=== PATIENT | male | born 1965 ===

== ENCOUNTER 2016-11-08 02:33 | Emergency (ER) | payer OTHER ==
[2016-11-08 02:33] VITALS: BMI 33.3
[2016-11-08 02:40] VITALS: BP 135/75; PULSE 92; TEMP 98.8
[2016-11-08] MEDS ORDERED: Albuterol-Ipratrop 3 mg / 0.5 (3 ml) UD INH STA ×3 (02:41→05:24)
--- NOTE | 2016-11-08 02:51 | ED PDOC ---
HPI: SOB/CHF/COPD Time Seen by Provider: 11/08/16 02:37 Chief Complaint (Nursing): Respiratory Distress Chief Complaint (Provider): SOB, wheezing History Per: Patient History/Exam Limitations: no limitations Onset/Duration Of Symptoms: Hrs Current Symptoms Are (Timing): Still Present Additional Complaint(s): 50yo male with PMHx including asthma presents to the ED with c/o SOB and wheezing since this morning. Patient states symptoms began because of rain and notes he ran out of his inhaler. No other medical complaints. Past Medical History Reviewed: Historical Data, Nursing Documentation, Vital Signs Vital Signs: Last Vital Signs Temp 98.8 F 11/08/16 02:38 Pulse 92 H 11/08/16 02:38 Resp 16 11/08/16 03:59 BP 135/75 11/08/16 02:38 Pulse Ox 99 11/08/16 06:18 - Medical History PMH: Asthma, COPD, Depression Denies: Diabetes, Hepatitis, HIV, HTN, Chronic Kidney Disease, Seizures, Sexually Transmitted Disease - Surgical History Surgical History: No Surg Hx - Family History Family History: States: Diabetes - Immunization History Hx Tetanus Toxoid Vaccination: No Hx Influenza Vaccination: No Hx Pneumococcal Vaccination: No - Home Medications Home Medications: Ambulatory Orders Medication Instructions Recorded Albuterol 0.083% [Albuterol 0.083% 2.5 mg IH Q4 PRN #10 vial 09/30/16 Inhal Kristal (2.5 mg/3 ml) UD] Albuterol HFA [Ventolin HFA 90 2 puff IH Q4 PRN #1 unit 09/30/16 mcg/actuation (8 g)] Fluticasone/Salmeterol 250/50 1 puff IH Q12 #1 unit 09/30/16 [Advair Diskus] Nebulizer/Compressor [Comp-Air 1 each MC PRN PRN #1 each 09/30/16 Nebulizer System] Prednisone 50 mg PO DAILY #4 tablet 09/30/16 Albuterol HFA [Ventolin HFA 90 2 puff IH [id number] PRN #1 bottle 10/19/16 mcg/actuation (8 g)] Ibuprofen [Motrin] 600 mg PO Q6H PRN #20 tab 10/19/16 Albuterol HFA [Ventolin HFA 90 2 puff IH [id number] #1 inhaler 11/08/16 mcg/actuation (8 g)] predniSONE [predniSONE Tab] 60 mg PO DAILY #9 tab 11/08/16 - Allergies Allergies/Adverse Reactions: Allergies Allergy/AdvReac Type Severity Reaction Status Date / Time FISH Allergy ANAPHYLAXIS Verified 11/08/16 02:38 Fish Containing Products Allergy ANAPHYLAXIS Verified 11/08/16 02:38 Review of Systems ROS Statement: Except As Marked, All Systems Reviewed And Found Negative Respiratory: Positive for: Shortness of Breath, Wheezing Physical Exam - Reviewed Nursing Documentation Reviewed: Yes Vital Signs Reviewed: Yes - Physical Exam Appears: Positive for: Well, No Acute Distress Head Exam: Positive for: ATRAUMATIC, NORMAL INSPECTION, NORMOCEPHALIC Skin: Positive for: Normal Color, Warm, Dry Eye Exam: Positive for: Normal appearance, EOMI, PERRL ENT: Positive for: Normal ENT Inspection Neck: Positive for: Normal, Painless ROM, Supple Cardiovascular/Chest: Positive for: Regular Rate, Rhythm. Negative for: Murmur , Tachycardia Respiratory: Positive for: Wheezing (mild b/l ). Negative for: Respiratory Distress Gastrointestinal/Abdominal: Positive for: Normal Exam, Bowel Sounds, Soft. Negative for: Tenderness Back: Positive for: Normal Inspection Extremity: Positive for: Normal ROM. Negative for: Deformity, Swelling Neurologic/Psych: Positive for: Alert, Oriented - ECG O2 Sat by Pulse Oximetry: 99 Pulse Ox Interpretation: Normal Medical Decision Making Medical Decision Makin: Impression: asthma Plan: duoneb 3ml INH x2 reassess 0618: Patient feels better after treatments and stable for d/c. Scribe Attestation: Documented by Roosevelt Sanders acting as a scribe for Richard Smith MD. Provider Scribe Attestation: All medical record entries made by the Scribe were at my direction and personally dictated by me. I have reviewed the chart and agree that the record accurately reflects my personal performance of the history, physical exam, medical decision making, and the department course for this patient. I have also personally directed, reviewed, and agree with the discharge instructions and disposition. Disposition - Clinical Impression Clinical Impression: Asthma exacerbation - Patient ED Disposition Is Patient to be Admitted: No - Disposition Referrals: [facility] [Outside] Disposition: Routine/Home Disposition Time: 06:18 Condition: IMPROVED Prescriptions: Albuterol HFA [Ventolin HFA 90 mcg/actuation (8 g)] 2 puff IH [id number] #1 inhaler predniSONE [predniSONE Tab] 60 mg PO DAILY #9 tab Instructions: Asthma (ED)
[2016-11-08 04:00] VITALS: RESP 16
[2016-11-08] MEDS ORDERED: Albuterol-Ipratrop 3 mg / 0.5 (3 ml) UD ONE (05:32)
[2016-11-08 06:18] VITALS: O2SAT 99
== END 2016-11-08 06:32 | disposition home or self-care (01) ==
LOC: H.ER 02:33
DX: J45.901 Unspecified asthma with (acute) exacerbation (principal)

== ENCOUNTER 2016-11-19 01:09 | Emergency (ER) | payer OTHER ==
[2016-11-19 01:09] VITALS: BMI 33.3
[2016-11-19 01:31] VITALS: BP 122/58; PULSE 96; RESP 16; TEMP 98; O2SAT 96
--- NOTE | 2016-11-19 04:05 | ED PDOC ---
HPI: Headache Time Seen by Provider: 11/19/16 01:12 Chief Complaint (Nursing): Headache Chief Complaint (Provider): headache History Per: Patient History/Exam Limitations: no limitations Onset/Duration Of Symptoms: Days Current Symptoms Are (Timing): Still Present Additional Complaint(s): 50yo male presents to the ED for evaluation of headache x past few weeks. Patient taking Tylenol with no relief. Headache is non-thunderclap and not the worst of his life. No neck stiffness or fever. Past Medical History Reviewed: Historical Data, Nursing Documentation, Vital Signs Vital Signs: Last Vital Signs Temp 98 F 11/19/16 01:29 Pulse 96 H 11/19/16 01:29 Resp 16 11/19/16 01:29 BP 122/58 L 11/19/16 01:29 Pulse Ox 96 11/19/16 01:29 - Medical History PMH: Asthma, COPD, Depression Denies: Diabetes, Hepatitis, HIV, HTN, Chronic Kidney Disease, Seizures, Sexually Transmitted Disease - Surgical History Surgical History: No Surg Hx - Family History Family History: States: Diabetes - Immunization History Hx Tetanus Toxoid Vaccination: No Hx Influenza Vaccination: No Hx Pneumococcal Vaccination: No - Home Medications Home Medications: Ambulatory Orders Medication Instructions Recorded Albuterol 0.083% [Albuterol 0.083% 2.5 mg IH Q4 PRN #10 vial 09/30/16 Inhal Kristal (2.5 mg/3 ml) UD] Albuterol HFA [Ventolin HFA 90 2 puff IH Q4 PRN #1 unit 09/30/16 mcg/actuation (8 g)] Fluticasone/Salmeterol 250/50 1 puff IH Q12 #1 unit 09/30/16 [Advair Diskus] Nebulizer/Compressor [Comp-Air 1 each MC PRN PRN #1 each 09/30/16 Nebulizer System] Prednisone 50 mg PO DAILY #4 tablet 09/30/16 Albuterol HFA [Ventolin HFA 90 2 puff IH [id number] PRN #1 bottle 10/19/16 mcg/actuation (8 g)] Ibuprofen [Motrin] 600 mg PO Q6H PRN #20 tab 10/19/16 Albuterol HFA [Ventolin HFA 90 2 puff IH [id number] #1 inhaler 11/08/16 mcg/actuation (8 g)] predniSONE [predniSONE Tab] 60 mg PO DAILY #9 tab 11/08/16 Aspirin/Acetaminophen/Caffeine 1 each PO Q8 #30 tablet 11/19/16 [Excedrin Extra Strength Caplet] - Allergies Allergies/Adverse Reactions: Allergies Allergy/AdvReac Type Severity Reaction Status Date / Time FISH Allergy ANAPHYLAXIS Verified 11/19/16 01:29 Fish Containing Products Allergy ANAPHYLAXIS Verified 11/19/16 01:29 Review of Systems ROS Statement: Except As Marked, All Systems Reviewed And Found Negative Constitutional: Negative for: Fever Musculoskeletal: Positive for: Other (no neck stiffness ) Neurological: Positive for: Headache, Other (non-thunderclap headache ) Physical Exam - Reviewed Nursing Documentation Reviewed: Yes Vital Signs Reviewed: Yes - Physical Exam Appears: Positive for: Well, No Acute Distress Head Exam: Positive for: ATRAUMATIC, NORMAL INSPECTION, NORMOCEPHALIC Skin: Positive for: Normal Color, Warm, Dry Eye Exam: Positive for: Normal appearance, EOMI, PERRL ENT: Positive for: Normal ENT Inspection Neck: Positive for: Normal, Painless ROM, Supple Cardiovascular/Chest: Positive for: Regular Rate, Rhythm. Negative for: Murmur , Tachycardia Respiratory: Positive for: Normal Breath Sounds. Negative for: Wheezing, Respiratory Distress Gastrointestinal/Abdominal: Positive for: Normal Exam, Bowel Sounds, Soft. Negative for: Tenderness Back: Positive for: Normal Inspection Extremity: Positive for: Normal ROM. 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 Negative for: Motor/Sensory Deficits, Aphasia, Facial Droop - ECG O2 Sat by Pulse Oximetry: 96 Pulse Ox Interpretation: Normal (RA) Medical Decision Making Medical Decision Makin: Impression: non-pathological headache Plan: Motrin 600mg PO reassess Scribe Attestation: Documented by Roosevelt Sanders acting as a scribe for Richard Smith MD. Provider Scribe Attestation: All medical record entries made by the Scribe were at my direction and personally dictated by me. I have reviewed the chart and agree that the record accurately reflects my personal performance of the history, physical exam, medical decision making, and the department course for this patient. I have also personally directed, reviewed, and agree with the discharge instructions and disposition. Disposition - Clinical Impression Clinical Impression: Headache - Disposition Referrals: Yan Thompson MD [Primary Care Provider] - Disposition Time: 04:00 Condition: STABLE Prescriptions: Aspirin/Acetaminophen/Caffeine [Excedrin Extra Strength Caplet] 1 each PO Q8 # 30 tablet Instructions: Acute Headache (ED)
== END 2016-11-19 05:51 | disposition home or self-care (01) ==
LOC: H.ER 01:09
DX: R51 Headache (principal); J44.9 Chronic obstructive pulmonary disease, unspecified; Z79.82 Long term (current) use of aspirin

== ENCOUNTER 2016-12-07 01:20 | Emergency (ER) | payer OTHER ==
[2016-12-07 01:20] VITALS: BMI 33.3
[2016-12-07 01:28] VITALS: BP 132/88; PULSE 75; RESP 20; TEMP 98; O2SAT 95
[2016-12-07] MEDS ORDERED: Bacitracin 500 Units/gm Oint Foilpak UD TOP STA (02:05)
[2016-12-07] MEDS ORDERED: Albuterol-Ipratrop 3 mg / 0.5 (3 ml) UD INH STA (02:05)
[2016-12-07] MEDS ORDERED: Albuterol-Ipratrop 3 mg / 0.5 (3 ml) UD ONE (02:12)
--- NOTE | 2016-12-07 02:25 | ED PDOC ---
HPI: SOB/CHF/COPD Time Seen by Provider: 12/07/16 01:30 Chief Complaint (Nursing): Respiratory Distress Chief Complaint (Provider): Wheezing History Per: Patient History/Exam Limitations: no limitations Onset/Duration Of Symptoms: Days (2x) Current Symptoms Are (Timing): Still Present Initiating Event: Out Of Medications (lost his albuterol ) Current Respiratory Medications: Albuterol Associated Symptoms: Other (dry cough). denies: Fever, Chest Pain Additional Complaint(s): 50 year old male with a pertinent medical history of asthma presents to the ED with complaints of wheezing that started 2x days ago. He reports that he lost his albuterol machine 2x days ago. He reports associated symptoms of a cough. He denies having a fever and chest pain. Of note: patient has had a 1cm wound on the sole of his right foot (no discharge ) fro 2x weeks. PMD: Patient does not recall Past Medical History Reviewed: Historical Data, Nursing Documentation, Vital Signs Vital Signs: Last Vital Signs Temp 98 F 12/07/16 01:26 Pulse 75 12/07/16 01:26 Resp 20 12/07/16 01:26 BP 132/88 12/07/16 01:26 Pulse Ox 95 12/07/16 02:38 - Medical History PMH: Asthma, COPD, Depression Denies: Diabetes, Hepatitis, HIV, HTN, Chronic Kidney Disease, Seizures, Sexually Transmitted Disease - Surgical History Surgical History: No Surg Hx - Family History Family History: States: Diabetes - Social History Alcohol: Other (yes) - Immunization History Hx Tetanus Toxoid Vaccination: No Hx Influenza Vaccination: No Hx Pneumococcal Vaccination: No - Home Medications Home Medications: Ambulatory Orders Medication Instructions Recorded Albuterol 0.083% [Albuterol 0.083% 2.5 mg IH Q4 PRN #10 vial 09/30/16 Inhal Kristal (2.5 mg/3 ml) UD] Albuterol HFA [Ventolin HFA 90 2 puff IH Q4 PRN #1 unit 09/30/16 mcg/actuation (8 g)] Fluticasone/Salmeterol 250/50 1 puff IH Q12 #1 unit 09/30/16 [Advair Diskus] Nebulizer and Compressor [Comp-Air 1 each MC PRN PRN #1 each 09/30/16 Nebulizer System] Prednisone 50 mg PO DAILY #4 tablet 09/30/16 Albuterol HFA [Ventolin HFA 90 2 puff IH [id number] PRN #1 bottle 10/19/16 mcg/actuation (8 g)] Ibuprofen [Motrin] 600 mg PO Q6H PRN #20 tab 10/19/16 Albuterol HFA [Ventolin HFA 90 2 puff IH [id number] #1 inhaler 11/08/16 mcg/actuation (8 g)] predniSONE [predniSONE Tab] 60 mg PO DAILY #9 tab 11/08/16 Aspirin/Acetaminophen/Caffeine 1 each PO Q8 #30 tablet 11/19/16 [Excedrin Extra Strength Caplet] Albuterol HFA [Ventolin HFA 90 2 puff IH [id number] PRN #1 inh 12/07/16 mcg/actuation (8 g)] Cephalexin [Keflex] 500 mg PO BID #14 capsule 12/07/16 - Allergies Allergies/Adverse Reactions: Allergies Allergy/AdvReac Type Severity Reaction Status Date / Time FISH Allergy ANAPHYLAXIS Verified 11/19/16 01:29 Fish Containing Products Allergy ANAPHYLAXIS Verified 11/19/16 01:29 Review of Systems ROS Statement: Except As Marked, All Systems Reviewed And Found Negative Constitutional: Negative for: Fever Cardiovascular: Negative for: Chest Pain Respiratory: Positive for: Cough, Wheezing Skin: Positive for: Other (wound on the sole of right foot) Physical Exam - Reviewed Nursing Documentation Reviewed: Yes Vital Signs Reviewed: Yes - Physical Exam Appears: Positive for: Well, Non-toxic, No Acute Distress Head Exam: Positive for: ATRAUMATIC, NORMOCEPHALIC Cardiovascular/Chest: Positive for: Regular Rate, Rhythm Respiratory: Positive for: Wheezing (diffuse wheezing bilaterally). Negative for: Decreased Breath Sounds, Respiratory Distress Gastrointestinal/Abdominal: Positive for: Normal Exam, Soft. Negative for: Tenderness Extremity: Positive for: Other (right foot: 1cm wound on sole. No redness, no discharge.) Neurologic/Psych: Positive for: Alert, Oriented (3x) - ECG O2 Sat by Pulse Oximetry: 95 (RA) Pulse Ox Interpretation: Normal Nebulizer Treatments/Peak Flow - Duonebs Number of Bronchodilator Doses given?: 1 - Pre/Post Peak Flow Pre Treatment Peak Flow: 1 Post treatment Peak Flow: 1 - Steroid Treatment Steroid: Oral (solumedrol) - Clinical Response Clinical Response: Improved Medical Decision Making Medical Decision Makin:30 Initial impression: 50 year old male with wheezing. Differential diagnoses include but are not limited to asthma exacerbation or food wound infection. Initial plan: * EKG * Bacitracin 1ea TOP * duoneb 3ml INH * peak flow pre post treatment * solumedrol 60mgPO * reevaluation Patient will be discharged with Rx for albuterol, prednisone, and a referral to a podiatry clinic. Patient is instructed to return to the ED if symptoms persist or worsen. Scribe Attestation: Documented by Niharika Taveras, acting as a scribe for Tato Bird MD. Provider Scribe Attestation: All medical record entries made by the Scribe were at my direction and personally dictated by me. I have reviewed the chart and agree that the record accurately reflects my personal performance of the history, physical exam, medical decision making, and the department course for this patient. I have also personally directed, reviewed, and agree with the discharge instructions and disposition. Disposition - Clinical Impression Clinical Impression: Asthma, Asthma exacerbation attacks - Patient ED Disposition Is Patient to be Admitted: No Doctor Will See Patient In The: Office Counseled Patient/Family Regarding: Studies Performed, Diagnosis, Need For Followup - Disposition Referrals: [facility] [Outside] Podiatry Clinic [Outside] Disposition: Routine/Home Disposition Time: 04:05 Condition: GOOD Additional Instructions: Follow up with your PCP in 2-3 days. Prescriptions: Albuterol HFA [Ventolin HFA 90 mcg/actuation (8 g)] 2 puff IH [id number] PRN #1 inh PRN Reason: Wheezing Cephalexin [Keflex] 500 mg PO BID #14 capsule Instructions: Asthma (ED), Pressure Ulcer (ED)
--- NOTE | 2016-12-07 10:20 | CARD ---
APPROVED REPORT EKG Measurement Heart [id number] <Conclusion> Normal sinus rhythm Cannot rule out Anterior infarct, age undetermined (Check placement of V2 and V3 leads) Abnormal ECG
== END 2016-12-07 04:49 | disposition home or self-care (01) ==
LOC: H.ER 01:20
DX: J45.901 Unspecified asthma with (acute) exacerbation (principal); J44.9 Chronic obstructive pulmonary disease, unspecified; Z79.82 Long term (current) use of aspirin; F32.9 Major depressive disorder, single episode, unspecified

== ENCOUNTER 2016-12-16 04:43 | Emergency (ER) | payer OTHER ==
[2016-12-16 04:44] VITALS: BMI 33.3
[2016-12-16 05:11] VITALS: BP 116/86; PULSE 87; RESP 16; TEMP 98.6; O2SAT 98
[2016-12-16] MEDS ORDERED: Albuterol-Ipratrop 3 mg / 0.5 (3 ml) UD ONE (06:28)
[2016-12-16] MEDS ORDERED: Albuterol-Ipratrop 3 mg / 0.5 (3 ml) UD INH STA ×2 (06:28→06:30)
--- NOTE | 2016-12-16 06:33 | ED PDOC ---
HPI: SOB/CHF/COPD Time Seen by Provider: 12/16/16 04:50 Chief Complaint (Nursing): Respiratory Distress Chief Complaint (Provider): asthma exacerbation History Per: Patient History/Exam Limitations: no limitations Onset/Duration Of Symptoms: Mins Current Symptoms Are (Timing): Still Present Additional Complaint(s): 50yo male well known to ED and provider for multiple previous visits with PMHx including alcohol abuse, depression, asthma, COPD, gastritis presents to the ED for eval of asthma exacerbation. Patient states he feels tight. Denies any other medical complaints. Past Medical History Reviewed: Historical Data, Nursing Documentation, Vital Signs Vital Signs: Last Vital Signs Temp 98.6 F 12/16/16 05:08 Pulse 87 12/16/16 05:08 Resp 16 12/16/16 05:08 BP 116/86 12/16/16 05:08 Pulse Ox 98 12/16/16 06:44 - Medical History PMH: Asthma, COPD, Depression, Gastritis Denies: Diabetes, Hepatitis, HIV, HTN, Chronic Kidney Disease, Seizures, Sexually Transmitted Disease - Surgical History Surgical History: No Surg Hx - Family History Family History: States: Diabetes - Social History Current smoker - smoking cessation education provided: No Alcohol: Other (hx alcohol abuse) Drugs: Denies - Immunization History Hx Tetanus Toxoid Vaccination: No Hx Influenza Vaccination: No Hx Pneumococcal Vaccination: No - Home Medications Home Medications: Ambulatory Orders Medication Instructions Recorded Albuterol 0.083% [Albuterol 0.083% 2.5 mg IH Q4 PRN #10 vial 09/30/16 Inhal Kristal (2.5 mg/3 ml) UD] Albuterol HFA [Ventolin HFA 90 2 puff IH Q4 PRN #1 unit 09/30/16 mcg/actuation (8 g)] Fluticasone/Salmeterol 250/50 1 puff IH Q12 #1 unit 09/30/16 [Advair Diskus] Nebulizer and Compressor [Comp-Air 1 each MC PRN PRN #1 each 09/30/16 Nebulizer System] Prednisone 50 mg PO DAILY #4 tablet 09/30/16 Albuterol HFA [Ventolin HFA 90 2 puff IH [id number] PRN #1 bottle 10/19/16 mcg/actuation (8 g)] Ibuprofen [Motrin] 600 mg PO Q6H PRN #20 tab 10/19/16 Albuterol HFA [Ventolin HFA 90 2 puff IH [id number] #1 inhaler 11/08/16 mcg/actuation (8 g)] predniSONE [predniSONE Tab] 60 mg PO DAILY #9 tab 11/08/16 Aspirin/Acetaminophen/Caffeine 1 each PO Q8 #30 tablet 11/19/16 [Excedrin Extra Strength Caplet] Albuterol HFA [Ventolin HFA 90 2 puff IH [id number] PRN #1 inh 12/07/16 mcg/actuation (8 g)] Cephalexin [Keflex] 500 mg PO BID #14 capsule 12/07/16 Prednisone 50 mg PO DAILY #3 tablet 12/07/16 Albuterol HFA [Ventolin HFA 90 1 - 2 puff IH Q4H PRN #1 bottle 12/16/16 mcg/actuation (8 g)] - Allergies Allergies/Adverse Reactions: Allergies Allergy/AdvReac Type Severity Reaction Status Date / Time FISH Allergy ANAPHYLAXIS Verified 11/19/16 01:29 Fish Containing Products Allergy ANAPHYLAXIS Verified 11/19/16 01:29 Review of Systems ROS Statement: Except As Marked, All Systems Reviewed And Found Negative Respiratory: Positive for: Other (asthma exacerbation ) Physical Exam - Reviewed Nursing Documentation Reviewed: Yes Vital Signs Reviewed: Yes - Physical Exam Appears: Positive for: Well, No Acute Distress Head Exam: Positive for: ATRAUMATIC, NORMAL INSPECTION, NORMOCEPHALIC Skin: Positive for: Normal Color, Warm, Dry Eye Exam: Positive for: Normal appearance Cardiovascular/Chest: Positive for: Regular Rate, Rhythm. Negative for: Tachycardia Respiratory: Positive for: Wheezing (slight b/l ), Other (good air entry b/l ). Negative for: Respiratory Distress Neurologic/Psych: Positive for: Alert, Oriented - ECG O2 Sat by Pulse Oximetry: 98 Pulse Ox Interpretation: Normal Medical Decision Making Medical Decision Makin: Impression: asthma exacerbation Plan: duoneb 3ml INH x2, prednisone 40mg PO reassess 0655: Patient feels better after treatment in ED and is stable for d/c. Instructed to f/u w/ his PCP in 1-2 days and return to the ED with any worsening or concerning symptoms. Patient understands and agrees with the plan. Scribe Attestation: Documented by Roosevelt Sanders acting as a scribe for Melania Crook MD. Provider Scribe Attestation: All medical record entries made by the Scribe were at my direction and personally dictated by me. I have reviewed the chart and agree that the record accurately reflects my personal performance of the history, physical exam, medical decision making, and the department course for this patient. I have also personally directed, reviewed, and agree with the discharge instructions and disposition. Disposition - Clinical Impression Clinical Impression: Asthma - Patient ED Disposition Is Patient to be Admitted: No Counseled Patient/Family Regarding: Studies Performed, Diagnosis, Need For Followup - Disposition Referrals: [facility] [Outside] [facility] [Outside] Disposition: Routine/Home Disposition Time: 06:40 Condition: IMPROVED Additional Instructions: follow up with your primary doctor in 1-2 days return to the ED with any worsening or concerning symptom.s. Prescriptions: Albuterol HFA [Ventolin HFA 90 mcg/actuation (8 g)] 1 - 2 puff IH Q4H PRN #1 bottle PRN Reason: Wheezing Instructions: Asthma (ED)
== END 2016-12-16 07:05 | disposition home or self-care (01) ==
LOC: H.ER 04:43
DX: J44.9 Chronic obstructive pulmonary disease, unspecified (principal)

== ENCOUNTER 2016-12-29 19:19 | Inpatient (IN) | payer MEDICAID, SELFPAY ==
[2016-12-29 19:19] VITALS: BMI 33.3
--- NOTE | 2016-12-29 20:34 | ED PDOC ---
HPI: Psych/Substance Abuse Time Seen by Provider: 12/29/16 20:32 Chief Complaint (Nursing): Psychiatric Evaluation Chief Complaint (Provider): depression History Per: Patient History/Exam Limitations: no limitations Onset/Duration Of Symptoms: Unknown Associated Symptoms: Depression Additional Complaint(s): Lai Perea is a 50 year old male, with a previous medical history of depression, who presents to the ED with complaints of depression accompanied by suicidal ideation. Patient reports wanting to hurt himself by taking sleeping pills. Patient denies any chest pain, shortness of breath, suicidal ideation or hallucinations. PMD: none provided. Past Medical History Reviewed: Historical Data, Nursing Documentation, Vital Signs Vital Signs: Last Vital Signs Temp 98.2 F 12/29/16 19:49 Pulse 77 12/29/16 19:49 Resp 16 12/29/16 19:49 BP 128/80 12/29/16 19:49 Pulse Ox 97 12/29/16 19:49 - Medical History PMH: Asthma, COPD, Depression, Gastritis Denies: Diabetes, Hepatitis, HIV, HTN, Chronic Kidney Disease, Seizures, Sexually Transmitted Disease - Surgical History Surgical History: No Surg Hx - Family History Family History: States: Diabetes - Immunization History Hx Tetanus Toxoid Vaccination: No Hx Influenza Vaccination: No Hx Pneumococcal Vaccination: No - Home Medications Home Medications: Ambulatory Orders Medication Instructions Recorded Albuterol 0.083% [Albuterol 0.083% 2.5 mg IH Q4 PRN #10 vial 09/30/16 Inhal Kristal (2.5 mg/3 ml) UD] Albuterol HFA [Ventolin HFA 90 2 puff IH Q4 PRN #1 unit 09/30/16 mcg/actuation (8 g)] Fluticasone/Salmeterol 250/50 1 puff IH Q12 #1 unit 09/30/16 [Advair Diskus] Nebulizer and Compressor [Comp-Air 1 each MC PRN PRN #1 each 09/30/16 Nebulizer System] Prednisone 50 mg PO DAILY #4 tablet 09/30/16 Albuterol HFA [Ventolin HFA 90 2 puff IH [id number] PRN #1 bottle 10/19/16 mcg/actuation (8 g)] Ibuprofen [Motrin] 600 mg PO Q6H PRN #20 tab 10/19/16 Albuterol HFA [Ventolin HFA 90 2 puff IH [id number] #1 inhaler 11/08/16 mcg/actuation (8 g)] predniSONE [predniSONE Tab] 60 mg PO DAILY #9 tab 11/08/16 Aspirin/Acetaminophen/Caffeine 1 each PO Q8 #30 tablet 11/19/16 [Excedrin Extra Strength Caplet] Albuterol HFA [Ventolin HFA 90 2 puff IH [id number] PRN #1 inh 12/07/16 mcg/actuation (8 g)] Cephalexin [Keflex] 500 mg PO BID #14 capsule 12/07/16 Prednisone 50 mg PO DAILY #3 tablet 12/07/16 Albuterol HFA [Ventolin HFA 90 1 - 2 puff IH Q4H PRN #1 bottle 12/16/16 mcg/actuation (8 g)] - Allergies Allergies/Adverse Reactions: Allergies Allergy/AdvReac Type Severity Reaction Status Date / Time FISH Allergy ANAPHYLAXIS Verified 11/19/16 01:29 Fish Containing Products Allergy ANAPHYLAXIS Verified 11/19/16 01:29 Review of Systems ROS Statement: Except As Marked, All Systems Reviewed And Found Negative Cardiovascular: Negative for: Chest Pain Respiratory: Negative for: Shortness of Breath Psych: Positive for: Suicidal ideation. Negative for: Other (homicidal ideation or hallucinations ) Physical Exam - Reviewed Nursing Documentation Reviewed: Yes Vital Signs Reviewed: Yes - Physical Exam Appears: Positive for: Well, Non-toxic, No Acute Distress Head Exam: Positive for: ATRAUMATIC, NORMAL INSPECTION, NORMOCEPHALIC Skin: Positive for: Normal Color, Warm, DRY Eye Exam: Positive for: EOMI, Normal appearance, PERRL ENT: Positive for: Normal ENT Inspection Neck: Positive for: Normal, Painless ROM Cardiovascular/Chest: Positive for: Regular Rate, Rhythm Respiratory: Positive for: CNT, Normal Breath Sounds Gastrointestinal/Abdominal: Positive for: Normal Exam, Bowel Sounds, Soft Back: Positive for: Normal Inspection Extremity: Positive for: Normal ROM Neurologic/Psych: Positive for: Alert, Oriented - Laboratory Results Result Diagrams: 12/29/16 20:50 12/29/16 20:50 - ECG O2 Sat by Pulse Oximetry: 97 (RA) Pulse Ox Interpretation: Normal - Progress ED Course And Treament: SEEN BY CRISIS ADMITTED TO [facility] DIAGNOSIS DEPRESSION Medical Decision Making Medical Decision Making: Initial Impression: Crisis evaluation Initial Plan: * alcohol serum * labs * urine drug screen * crisis evaluation * 1:1 observation * urinalysis * reevaluation Scribe Attestation: Documented by Emily Blue, acting as a scribe for Milton Scott PA-C. Provider Scribe Attestation: All medical record entries made by the Scribe were at my direction and personally dictated by me. I have reviewed the chart and agree that the record accurately reflects my personal performance of the history, physical exam, medical decision making, and the department course for this patient. I have also personally directed, reviewed, and agree with the discharge instructions and disposition. Disposition - Clinical Impression Clinical Impression: Depression - Patient ED Disposition Is Patient to be Admitted: No - Disposition Disposition Time: 22:20 Condition: FAIR - Pt Status Changed To: Hospital Disposition Of: Inpatient - Admit Certification Admit to Inpatient:: After my assessment, the patient will require hospitalization for at least two midnights. This is because of the severity of symptoms shown, intensity of services needed, and/or the medical risk in this patient being treated as an outpatient.
[2016-12-29 21:28] LABS: BASO % 0.3 % (0.0-2.0); EOS # 0.2 K/uL (0.0-0.7); EOS % 4.3 % (0.0-4.0); HEMATOCRIT 41.5 % (35.0-51.0); LYMPH # 0.7 K/uL (1.0-4.3); LYMPH % 20.3 % (20.0-40.0); MEAN CELL VOLUME 90.1 fl (80.0-94.0); MEAN CORPUSCULAR HEMOGLOBIN 30.1 pg (27.0-31.0); MEAN CORPUSCULAR HGB CONC 33.5 g/dL (33.0-37.0); MONO # 0.4 K/uL (0.0-0.8); NEUT # 2.4 K/uL (1.8-7.0); NEUT % 65.1 % (50.0-75.0); RED CELL DISTRIBUTION WIDTH 13.5 % (11.5-14.5)
[2016-12-29 21:37] LABS: WHITE BLOOD COUNT 3.6 K/uL (4.8-10.8)
[2016-12-29 21:39] LABS: ALB/GLOB RATIO 1.4 (1.0-2.1); ALCOHOL SERUM < 10 mg/dl (0-10); ALKALINE PHOSPHATASE 78 U/L (38-126); ALT/SGPT 43 U/L (21-72); AST/SGOT 27 U/L (17-59); BILIRUBIN,TOTAL 0.2 mg/dl (0.2-1.3); BLOOD UREA NITROGEN 12 mg/dl (9-20); CALCIUM 9.4 mg/dL (8.4-10.2); CARBON DIOXIDE 31 mmol/L (22-30); CHLORIDE 100 mmol/L (98-107); GFR AFRICAN-AMERICAN > 60; GLUCOSE,RANDOM 189 mg/dL (75-110); POTASSIUM 3.6 MMOL/L (3.6-5.0); SODIUM 140 mmol/l (132-148); TOTAL PROTEIN 6.6 G/DL (6.3-8.2)
[2016-12-29 23:25] LABS: RBC URINE 1 /hpf (0-3); URINE BILIRUBIN NEGATIVE (NEGATIVE); URINE BLOOD NEGATIVE (NEGATIVE); URINE COLOR YELLOW (YELLOW); URINE GLUCOSE (UA) 150 mg/dL (Normal); URINE KETONE NEGATIVE (NEGATIVE); URINE LEUKOCYTE ESTERASE NEG Leu/uL (Negative); URINE PROTEIN NEGATIVE (NEGATIVE); WBC URINE 2 /hpf (0-5)
[2016-12-29 23:51] VITALS: O2SAT 98
[2016-12-30] MEDS ORDERED: DiphenhydrAMINE 50 mg/ml Inj IM PRN (01:21)
[2016-12-30] MEDS ORDERED: Magnesium Hydroxide Susp 30 ml UD PO PRN (01:21)
[2016-12-30] MEDS ORDERED: Alum-Mag Hydrox-Simethicone Susp (30 mL) PO PRN (01:21)
[2016-12-30] MEDS ORDERED: Bismuth Subsalicylate 262 mg/15 ml Sus (240 ml) PO SCH (05:00)
[2016-12-30] MEDS ORDERED: Bismuth Subsalicylate 262 mg/15 ml Sus (240 ml) PO PRN (06:11)
[2016-12-30] MEDS ORDERED: Albuterol HFA 90 mcg/actuation (8 g) IH PRN (06:44)
[2016-12-30 08:05] LABS: T4 5.11 ug/dl (5.5-11.0)
[2016-12-30 08:19] LABS: THYROID STIMULATING HORMONE 1.98 mIU/ML (0.46-4.68)
--- NOTE | 2016-12-30 08:42 | PCM.PSYCH ---
Initial Psychiatric Evaluation - Initial Psychiatric Evaluation Type of Admission: Voluntary Legal Status: Capacity Chief Complaint (in patient's own words): "I'm depressed." Patient's Reaction to Hospitalization: HPI: 50 y/o male, with a history of depression, cocaine and alcohol abuse, that was self-referred to this ED for worsening depression and suicidal ideation. Pt reports that he has been very depressed and has been feeling suicidal for the past few weeks. He reports that he has no reason to live. His ideation has been getting stronger and he has purchased pills to commit suicidal but throw them away. He reports he has done that a couple times. No current psychiatric treatment or medications. He denies alcohol and cocaine use , despite being confronted about having a postive urine toxicology for Cocaine. +Poor sleep. +Poor appetite. Patient able to contract for safety on the unit. Pt is a poor historian and reports inconsistent information than is noted in previous evals. Pt reports not sleeping for 3-4 days at a time. Pt denies HI/A/V hallucinations. Pt feels hopeless/helpless. PPHx: Last known hosptalization was in 04/2016, when he was discharged on Zoloft , Trazodone and Gabapentin. Prior treatment at [facility], [facility], AA, and NA. 1994 by OD. FHx: Substance abuse- Several family members, aunts, uncles, cousins, father PMHx: Asthma SHx: 2 yrs of college. 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 History of alcohol and cocaine abuse, patient denying current use, despite + utox. Denied smoking cigarettes. Patient was born in [place]. He was never and has one grown up son. Currently lives with friend. All: Fish/shellfish Current Medications: Active Medications Generic Name Dose Route Start Last Admin Trade Name Freq PRN Reason Stop Dose Admin Acetaminophen 650 mg 12/30/16 01:21 Tylenol 325mg Tab PO Q4 PRN for pain 4-7 Al Hydrox/Mg Hydrox/Simethicone 30 ml 12/30/16 01:21 Maalox Plus 30 Ml PO Q4 PRN Dyspepsia Albuterol 2 puff 12/30/16 06:44 Ventolin Hfa 90 Mcg/Actuation (8 G) IH Q4H PRN Wheezing Bismuth Subsalicylate 524 mg 12/30/16 06:11 Pepto-Bismol PO Q4 PRN Diarrhea Diphenhydramine HCl 50 mg 12/30/16 01:21 Benadryl IM Q6 PRN Extrapyramidal S/S Unable PO Diphenhydramine HCl 50 mg 12/30/16 01:21 Benadryl PO Q6 PRN Extrapyramidal Symptoms Diphenhydramine HCl 50 mg 12/30/16 01:21 12/30/16 03:03 Benadryl PO 50 mg HS PRN Administration Sleep Haloperidol 5 mg 12/30/16 01:21 Haldol PO Q4 PRN Agitation Haloperidol Lactate 5 mg 12/30/16 01:21 Haldol IM Q4 PRN Agitation, Unable to Take PO Lorazepam 2 mg 12/30/16 01:21 Ativan IM Q4 PRN Anxiety/Agitation,Unable PO Lorazepam 2 mg 12/30/16 01:21 Ativan PO Q4 PRN Anxiety/Agitation Magnesium Hydroxide 30 ml 12/30/16 01:21 Milk Of Magnesia PO HS PRN Constipation Fluticasone/Salmeterol 1 puff 12/30/16 09:00 Advair Diskus 250/50 IH Q12 YONG Past Psychiatric History - Past Psychiatric History Previous Treatment History: Inpatient Pertinent Medical Hx (Current Medical&Sleep Prob, Allergies): Allergies Allergy/AdvReac Type Severity Reaction Status Date / Time FISH Allergy ANAPHYLAXIS Verified 12/30/16 01:11 Fish Containing Products Allergy ANAPHYLAXIS Verified 12/30/16 01:11 shellfish derived Allergy ANAPHYLAXIS Verified 12/30/16 01:11 seafood Allergy ANAPHYLAXIS Uncoded 12/30/16 05:41 Fluticasone/Salmeterol 250/50 [Advair Diskus] 1 puff IH Q12 #1 unit 09/30/16 Albuterol HFA [Ventolin HFA 90 mcg/actuation (8 g)] 1 - 2 puff IH Q4H PRN #1 bottle 12/16/16 Review of Systems - Review of Systems All systems: reviewed and no additional remarkable complaints except - Psychiatric Psychiatric: Abnormal Sleep Pattern, Anhedonia, Anxiety, Change in Appetite, Depression, Irritability, Mood Swings, Suicidal Ideation Mental Status Examination - Personal Presentation Personal Presentation: Looks stated age - Affect Affect: Constricted - Motor Activity Motor Activity: Calm - Reliability in Providing Information Reliability in Providing Information: Other (Poor historian at times, seems evasive and perhaps not truthful at times) - Speech Speech: Organized - Mood Mood: Depressed, Anxious - Formal Thought Process Formal Thought Process: No Impairment - Obsessions/Compulsions Obsessions: No Compulsions: No - Cognitive Functions Orientation: Person, Place, Situation, Time Sensorium: Alert Attention/Concentration: Attentive Judgement: Intact, as evidence by: Insight regarding need for hospitalization Memory: Recent intact, as evidence by: Ability to recall events of the day, Remote intact, as evidenced by: Abilit to recall sig. life events, Remote intact , as evidenced by: Ability to recall historical events - Risk Risk: Suicidal - Strength & Assets Inventory Strength & Assets Inventory: Cooperative DSM 5 DX - DSM 5 DSM 5 Diagnosis: Major Depressive Disorder, r/o substance induced mood disorder; Cocaine Use disorder - Recommended/Plan of Treatment Treatment Recommendations and Plan of Treatment: -Admit to psychiatry -Denies current ETOH use, therefore withdrawal protocol not indicated at this time -Start Zoloft 50 mg PO Daily -Individual and group therapy -Medicine consult -Psychoeducation -Disposition planning -No 1:1 indicated as the patient can contract for safety Projected ELOS: 3-5 days Discharge Plan and Discharge Criteria: Discharge when psychiatrically stable
[2016-12-30] MEDS: Fluticasone-Salmeterol 250-50mcg Diskus IH SCH ×2 (08:52→21:20)
--- NOTE | 2016-12-30 10:59 | RAD ---
HISTORY: ROUTINE COMPARISON: Chest x-ray performed 10/19/16 TECHNIQUE: Chest, one view. FINDINGS: Examination limited by habitus. LUNGS: No focal consolidation. Please note that chest x-ray has limited sensitivity for the detection of pulmonary masses. PLEURA: No significant pleural effusion identified. No definite pneumothorax . CARDIOVASCULAR: Heart size appears within normal limits. OSSEOUS STRUCTURES: No acute osseous abnormality identified. VISUALIZED UPPER ABDOMEN: Unremarkable. OTHER FINDINGS: None. IMPRESSION: No focal consolidation, significant pleural effusion, or definite pneumothorax identified.
--- NOTE | 2016-12-30 15:21 | CP.PCM.CON ---
History of Present Illness - History of Present Illness History of Present Illness: Internal Medicine consult. 50 y/o M admitted to Psychiatric unit after ER evaluation for worsening depression associated to suicidal ideation for few weeks. I was asked to see Pt for medical Hx of Asthma, COPD, Gastritis. 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 Also mentioned that he had multiple admissions to hospital because he didn't have money to buy for his medications. Pt denid: fever, chill, n/v/d, abdominal pain, SOB, cough, CP, LOC, dizziness, headache, sick contact. PMHx: Asthma, COPD, Gastritis, Depression, Anxiety, also Hx of Cocaine and alcohol abuse. CXR showed: No consolidation, pleural effusion or Pneumothorax identified. Review of Systems - Constitutional Constitutional: Other (negative) - EENT Eyes: Other (negative) Ears: Other (negative) Nose/Mouth/Throat: Other (negative) - Cardiovascular Cardiovascular: Other (negative) - Respiratory Respiratory: Other (negative) - Gastrointestinal Gastrointestinal: Other (negative) - Genitourinary Genitourinary: Other (negative) - Musculoskeletal Musculoskeletal: Other (negative) - Integumentary Integumentary: Other (negative) - Neurological Neurological: Other (negative) - Psychiatric Psychiatric: Anxiety, Depression, Suicidal Ideation - Endocrine Endocrine: Other (negative) - Hematologic/Lymphatic Hematologic: Other (negative) Past Patient History - Infectious Disease Hx of Infectious Diseases: None - Past Medical History & Family History Past Medical History?: Yes Pertinent Family History: Hx of DM, Substance abuse - Past Social History Smoking Status: Current Some Days Smoker Alcohol: Other (Hx alcohol abuse) Drugs: Cocaine Home Situation {Lives}: Alone - CARDIAC Hx Cardiac Disorders: No Hx Hypertension: No - PULMONARY Hx Respiratory Disorders: Yes Hx Asthma: Yes Hx Bronchitis: Yes Hx Chronic Obstructive Pulmonary Disease (COPD): Yes - NEUROLOGICAL Hx Neurological Disorder: No Hx Seizures: No - HEENT Hx HEENT Problems: No - RENAL Hx Chronic Kidney Disease: No - ENDOCRINE/METABOLIC Hx Endocrine Disorders: No - HEMATOLOGICAL/ONCOLOGICAL Hx Blood Disorders: No Hx Human Immunodeficiency Virus (HIV): No - INTEGUMENTARY Hx Dermatological Problems: No - MUSCULOSKELETAL/RHEUMATOLOGICAL Hx Musculoskeletal Disorders: No Hx Falls: No - GASTROINTESTINAL Hx Gastrointestinal Disorders: Yes Hx Gastritis: Yes - GENITOURINARY/GYNECOLOGICAL Hx Genitourinary Disorders: No Hx Sexually Transmitted Disorders: No - PSYCHIATRIC Hx Psychophysiologic Disorder: Yes Hx Anxiety: Yes Hx Depression: Yes Hx Substance Use: Yes (cocaine) - SURGICAL HISTORY Hx Surgeries: No - ANESTHESIA Hx Anesthesia: No Meds Allergies/Adverse Reactions: Allergies Allergy/AdvReac Type Severity Reaction Status Date / Time FISH Allergy ANAPHYLAXIS Verified 12/30/16 01:11 Fish Containing Products Allergy ANAPHYLAXIS Verified 12/30/16 01:11 shellfish derived Allergy ANAPHYLAXIS Verified 12/30/16 01:11 seafood Allergy ANAPHYLAXIS Uncoded 12/30/16 05:41 - Medications Medications: Current Medications Acetaminophen (Tylenol 325mg Tab) 650 mg PO Q4 PRN PRN Reason: for pain 4-7 Al Hydrox/Mg Hydrox/Simethicone (Maalox Plus 30 Ml) 30 ml PO Q4 PRN PRN Reason: Dyspepsia Albuterol (Ventolin Hfa 90 Mcg/Actuation (8 G)) 2 puff IH Q4H PRN PRN Reason: Wheezing Bismuth Subsalicylate (Pepto-Bismol) 524 mg PO Q4 PRN PRN Reason: Diarrhea Diphenhydramine HCl (Benadryl) 50 mg IM Q6 PRN PRN Reason: Extrapyramidal S/S Unable PO Diphenhydramine HCl (Benadryl) 50 mg PO Q6 PRN PRN Reason: Extrapyramidal Symptoms Diphenhydramine HCl (Benadryl) 50 mg PO HS PRN PRN Reason: Sleep Last Admin: 12/30/16 03:03 Dose: 50 mg Haloperidol (Haldol) 5 mg PO Q4 PRN PRN Reason: Agitation Haloperidol Lactate (Haldol) 5 mg IM Q4 PRN PRN Reason: Agitation, Unable to Take PO Loratadine (Claritin) 10 mg PO DAILY YONG Lorazepam (Ativan) 2 mg IM Q4 PRN PRN Reason: Anxiety/Agitation,Unable PO Lorazepam (Ativan) 2 mg PO Q4 PRN PRN Reason: Anxiety/Agitation Magnesium Hydroxide (Milk Of Magnesia) 30 ml PO HS PRN PRN Reason: Constipation Fluticasone/Salmeterol (Advair Diskus 250/50) 1 puff IH Q12 YONG Last Admin: 12/30/16 08:52 Dose: 1 puff Sertraline HCl (Zoloft) 50 mg PO DAILY YONG Last Admin: 12/30/16 13:11 Dose: 50 mg Physical Exam - Constitutional Appears: No Acute Distress - Head Exam Head Exam: NORMAL INSPECTION - Eye Exam Eye Exam: PERRL - ENT Exam ENT Exam: Normal Oropharynx - Neck Exam Neck exam: Positive for: Normal Inspection - Respiratory Exam Respiratory Exam: Decreased Breath Sounds - Cardiovascular Exam Cardiovascular Exam: REGULAR RHYTHM - GI/Abdominal Exam GI & Abdominal Exam: Normal Bowel Sounds, Soft - Extremities Exam Extremities exam: Positive for: normal inspection - Back Exam Back exam: NORMAL INSPECTION - Neurological Exam Neurological exam: Alert, Oriented x3 Additional comments: No motor sensory deficit. - Psychiatric Exam Psychiatric exam: Anxious, Depressed - Skin Skin Exam: Warm Results - Vital Signs Recent Vital Signs: Last Vital Signs Temp 97.2 F L 12/30/16 06:00 Pulse 65 12/30/16 06:00 Resp 18 12/30/16 06:00 BP 109/70 12/30/16 06:00 Pulse Ox 98 12/29/16 23:50 reviewed J.PElisabeth - Labs Result Diagrams: 12/29/16 20:50 12/29/16 20:50 Labs: Laboratory Results - last 24 hr 12/30/16 06:00 Thyroxine (T4) 5.11 L TSH 3rd Generation 1.98 reviewed J.PElisabeth - Imaging and Cardiology Chest x-ray Status: Report reviewed by me (Vahe) Assessment & Plan (1) COPD (chronic obstructive pulmonary disease) Status: Chronic Priority: Medium (2) Gastritis Status: Chronic Priority: Medium (3) Cocaine abuse Status: Chronic Priority: High - Assessment and Plan (Free Text) Plan: Continue with Advair, Ventolin, Loratadine and rest of tx. - Date & Time Date: 12/30/16
[2016-12-31 07:00] LABS: CHOLESTEROL 220 mg/dL (0-199)
[2016-12-31] MEDS: Fluticasone-Salmeterol 250-50mcg Diskus IH SCH ×2 (09:01→21:08)
--- NOTE | 2016-12-31 12:23 | PCM.PYCHPN ---
Psychiatric Progress Note - Psychiatric Progress Note Patient seen today, length of contact: Patient evaluated, chart reviewed, case discussed with team, 35 min Patient Chief Complaint: "I'm okay" Problems Identified/Issues Discussed: Patient reports that his mood is starting to improve. No current suicidal ideation/plan/intent. He is currently calm, cooperative, engages appropriately with staff and peers. NO AH/VH/paranoia/delusions/konstantin/HI. Medication Change: No Medical Record Reviewed: Yes Consults ordered or reviewed: Medicine consult Mental Status Examination - Cognitive Function Orientation: Person, Place, Situation, Time Memory: Intact Attention: WNL Concentration: WNL Association: [facility] Fund of Knowledge: [facility] Decription of patient's judgement and insights: Fair I/J - Mood Mood: Depressed - Affect Affect: Constricted - Speech Speech: Appropriate - Formal Thought Process Formal Thought Process: No Impairment Psychotic Thoughts and Behaviors: NO AH/VH/paranoia/delusions - Homicidal Ideation Homicidal Ideation: No Goal/Treatment Plan - Goal/Treatment Plan Need for Continued Stay: Remain at risks for inpatient hospitalization, Severe depression anxiety Progress Toward Problem(s) and Goals/Treatment Plan: 51 yo male w/ h/o MDD, cocaine and alcohol abuse, presented with suicidal ideation in the context of continued cocaine use (utox+, patient denies current usage), now starting to improve clinically. -Continue Zoloft 50 mg PO Daily -Individual and group therapy -Medicine consult -Psychoeducation -Motivational therapy -Disposition planning- Possible discharge Thursday if the patient continues to improve clinically -No 1:1 indicated as the patient can contract for safety Estimated Date of D/C: 01/02/17
--- NOTE | 2017-01-01 08:59 | PCM.PYCHPN ---
Psychiatric Progress Note - Psychiatric Progress Note Patient seen today, length of contact: Patient evaluated, chart reviewed, case discussed with team, 35 min Patient Chief Complaint: "I'm okay" Problems Identified/Issues Discussed: No significant events overnight. Patient reports that his mood is continuing to improve. No current suicidal ideation/plan/intent. He is currently calm, cooperative, engages appropriately with staff and peers. NO AH/VH/paranoia/ delusions/konstantin/HI. Medication Change: No Medical Record Reviewed: Yes Mental Status Examination - Cognitive Function Orientation: Person, Place, Situation, Time Memory: Intact Attention: WNL Concentration: WNL Association: [facility] Fund of Knowledge: [facility] Decription of patient's judgement and insights: Fair I/J - Mood Mood: Depressed - Affect Affect: Constricted - Speech Speech: Appropriate - Formal Thought Process Formal Thought Process: No Impairment Psychotic Thoughts and Behaviors: NO AH/VH/paranoia/delusions - Suicidal Ideation Suicidal Ideation: No - Homicidal Ideation Homicidal Ideation: No Goal/Treatment Plan - Goal/Treatment Plan Need for Continued Stay: Remain at risks for inpatient hospitalization, Severe depression anxiety Progress Toward Problem(s) and Goals/Treatment Plan: 51 yo male w/ h/o MDD, cocaine and alcohol abuse, presented with suicidal ideation in the context of continued cocaine use (utox+, patient denies current usage), now starting to improve clinically. -Continue Zoloft 50 mg PO Daily -Individual and group therapy -Medicine consult -Psychoeducation -Motivational therapy -Disposition planning- Likely discharge Thursday if the patient continues to improve clinically -No 1:1 indicated as the patient can contract for safety Estimated Date of D/C: 01/02/17
[2017-01-01] MEDS: Fluticasone-Salmeterol 250-50mcg Diskus IH SCH ×2 (09:45→21:10)
[2017-01-01 15:54] VITALS: RESP 20; TEMP 97.8
[2017-01-02 06:03] VITALS: BP 134/75; PULSE 60
[2017-01-02] MEDS: Fluticasone-Salmeterol 250-50mcg Diskus IH SCH (08:53)
--- NOTE | 2017-01-02 09:56 | PCM.PYCHDC ---
Mental Status Examination - Mental Status Examination Orientation: Person, Place, Situation, Time Memory: Intact Mood: Neutral Affect: Broad Speech: Appropriate Attention: WNL Concentration: WNL Association: WNL Fund of Knowledge: WNL Formal Thought Process: No Impairment Description of patient's judgement and insight: Fair I/J Psychotic Thoughts and Behaviors: NO AH/VH/paranoia/delusions Suicidal Ideation: No Current Homicidal Ideation?: No Discharge Summary - Discharge Note Reason for Hospitalization: HPI: 50 y/o male, with a history of depression, cocaine and alcohol abuse, that was self-referred to this ED for worsening depression and suicidal ideation. Pt reports that he has been very depressed and has been feeling suicidal for the past few weeks. He reports that he has no reason to live. His ideation has been getting stronger and he has purchased pills to commit suicidal but throw them away. He reports he has done that a couple times. No current psychiatric treatment or medications. He denies alcohol and cocaine use , despite being confronted about having a postive urine toxicology for Cocaine. +Poor sleep. +Poor appetite. Patient able to contract for safety on the unit. Pt is a poor historian and reports inconsistent information than is noted in previous evals. Pt reports not sleeping for 3-4 days at a time. Pt denies HI/A/V hallucinations. Pt feels hopeless/helpless. PPHx: Last known hosptalization was in 04/2016, when he was discharged on Zoloft , Trazodone and Gabapentin. Prior treatment at [facility], [facility], [facility], and [facility]. 1994 SA by OD. FHx: Substance abuse- Several family members, aunts, uncles, cousins, father PMHx: Asthma SHx: 2 yrs of college. 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 History of alcohol and cocaine abuse, patient denying current use, despite + utox. Denied smoking cigarettes. Patient was born in [place]. He was never and has one grown up son. Currently lives with friend. All: Fish/shellfish Consultations:: List each consultation separately and include: 1. Reason for request. 2. Findings. 3. Follow-up Consultations: Medicine consult Summary of Hospital Course include:: 1. Description of specific treatment plan utilized for patients during their course of treatmen. 2. Summarize the time- course for resolution of acute symptoms and/or regressed behaviors. 3. Describe issues identified and worked on during hospitalization. 4. Describe medication utilized. 5. Describe medical problems identified and treated. 6. Reassessment of suicide risk Summary of Hospital Course: Patient admitted to the hospital. He participated in individual and group therapy. Motivational therapy provided. Patient was stabilized on Zoloft 50 mg PO Daily. He reports improvement in mood and does not have any ideation to harm himself. He is psychiatrically stable for discharge. - Final Diagnosis (DSM 5) Condition upon Discharge: FAIR DSM 5: Major Depressive Disorder, Cocaine abuse Disposition: HOME/ ROUTINE Follow-up Treatment Plan: 51 yo male w/ h/o MDD, cocaine and alcohol abuse, presented with suicidal ideation in the context of continued cocaine use (utox+, patient denies current usage), now improved clinically and psychiatrically stable for discharge. -Continue Zoloft 50 mg PO Daily -Individual and group therapy -Psychoeducation -Motivational therapy -Discharge today with outpatient follow-up Prescriptions/Medication Reconciliation: Albuterol HFA [Ventolin HFA 90 mcg/actuation (8 g)] 1 - 2 puff IH Q4H PRN #1 bottle PRN Reason: Wheezing Clotrimazole 1% Cream [Lotrimin 1% CREAM] 1 applic TOP BID #1 Fluticasone/Salmeterol 250/50 [Advair Diskus 250/50] 1 puff IH Q12 #1 unit Loratadine [Claritin] 10 mg PO DAILY #30 tab Sertraline [Zoloft] 50 mg PO DAILY #30 tab - Smoking Cessation Smoking Cessation Medication prescribed: No Reason for not providing: Not indicated - Antipsychotic Medications Pt discharged on 2 or more routine antipsychotic medications: No
--- NOTE | 2017-01-02 19:12 | CARD ---
APPROVED REPORT EKG Measurement Heart [id number] MS [id number] [id number] <Conclusion> Normal sinus rhythm Right axis deviation Abnormal ECG
== END 2017-01-02 13:00 | disposition home or self-care (01) | DRG 426 ==
LOC: H.ER 19:19 → H.ERHOLD 22:21 → H.STEP 12-30 00:19
PROVIDERS: ADMIT Psychiatry & Neurology Psychiatry; ATTEND Psychiatry & Neurology Psychiatry
DX: F32.9 Major depressive disorder, single episode, unspecified (principal); R45.851 Suicidal ideations; J44.9 Chronic obstructive pulmonary disease, unspecified; F14.10 Cocaine abuse, uncomplicated; F19.14 Other psychoactive substance abuse with psychoactive substance-induced mood disorder; K29.70 Gastritis, unspecified, without bleeding; F10.10 Alcohol abuse, uncomplicated; J45.909 Unspecified asthma, uncomplicated

== ENCOUNTER 2017-01-11 05:46 | Emergency (ER) | payer MEDICAID, OTHER ==
[2017-01-11 05:46] VITALS: BMI 33.3
[2017-01-11 06:03] VITALS: TEMP 97.8; O2SAT 99
[2017-01-11] MEDS ORDERED: Albuterol-Ipratrop 3 mg / 0.5 (3 ml) UD INH STA ×3 (06:04→06:58)
[2017-01-11] MEDS ORDERED: Albuterol-Ipratrop 3 mg / 0.5 (3 ml) UD ONE ×2 (06:11)
--- NOTE | 2017-01-11 06:34 | ED PDOC ---
HPI: SOB/CHF/COPD Time Seen by Provider: 01/11/17 05:57 Chief Complaint (Nursing): Respiratory Distress Chief Complaint (Provider): Wheezing History Per: Patient History/Exam Limitations: no limitations Onset/Duration Of Symptoms: Days (1x) Current Symptoms Are (Timing): Still Present Initiating Event: Other (patient continues to smoke 1/2 pack of cigarettes per day, states his pump no longer works) Severity: Moderate Additional Complaint(s): 51 year old male with a pertinent medical history of asthma presents to the ED with complaints of wheezing that he has had for a day. He has had multiple visits to the ED for the same complaint. He reports that his pump does not work and continues to smoke 1/2 a pack of cigarettes per day. He denies having any other complaints. PMD: Yan Thompson MD Past Medical History Reviewed: Historical Data, Nursing Documentation, Vital Signs Vital Signs: Last Vital Signs Temp 97.8 F 01/11/17 05:59 Pulse 70 01/11/17 05:59 Resp 26 H 01/11/17 06:24 BP 130/72 01/11/17 05:59 Pulse Ox 99 01/11/17 06:43 - Medical History PMH: Anxiety, Asthma, Bronchitis, COPD, Depression, Gastritis Denies: Diabetes, Hepatitis, HIV, HTN, Chronic Kidney Disease, Seizures, Sexually Transmitted Disease - Surgical History Surgical History: No Surg Hx - Family History Family History: States: Diabetes - Social History Current smoker - smoking cessation education provided: Yes (1/2 pack per day) Alcohol: None Drugs: Cocaine - Immunization History Hx Tetanus Toxoid Vaccination: No Hx Influenza Vaccination: No Hx Pneumococcal Vaccination: No - Home Medications Home Medications: Ambulatory Orders Medication Instructions Recorded Albuterol HFA [Ventolin HFA 90 1 - 2 puff IH Q4H PRN #1 bottle 01/01/17 mcg/actuation (8 g)] Clotrimazole 1% Cream [Lotrimin 1% 1 applic TOP BID #1 01/01/17 CREAM] Fluticasone/Salmeterol 250/50 1 puff IH Q12 #1 unit 01/01/17 [Advair Diskus 250/50] Loratadine [Claritin] 10 mg PO DAILY #30 tab 01/01/17 Sertraline [Zoloft] 50 mg PO DAILY #30 tab 01/01/17 - Allergies Allergies/Adverse Reactions: Allergies Allergy/AdvReac Type Severity Reaction Status Date / Time FISH Allergy ANAPHYLAXIS Verified 12/30/16 01:11 Fish Containing Products Allergy ANAPHYLAXIS Verified 12/30/16 01:11 shellfish derived Allergy ANAPHYLAXIS Verified 12/30/16 01:11 seafood Allergy ANAPHYLAXIS Uncoded 12/30/16 05:41 Review of Systems ROS Statement: Except As Marked, All Systems Reviewed And Found Negative Respiratory: Positive for: Wheezing Physical Exam - Reviewed Nursing Documentation Reviewed: Yes Vital Signs Reviewed: Yes - Physical Exam Appears: Positive for: Well (smells of cigarette smoke), Non-toxic, No Acute Distress Head Exam: Positive for: ATRAUMATIC, NORMOCEPHALIC Skin: Positive for: Normal Color, Warm, Dry Eye Exam: Positive for: Normal appearance Cardiovascular/Chest: Positive for: Regular Rate, Rhythm Respiratory: Positive for: Wheezing (bilaterally) Neurologic/Psych: Positive for: Alert, Oriented (3x) - ECG O2 Sat by Pulse Oximetry: 99 (RA) Pulse Ox Interpretation: Normal Nebulizer Treatments/Peak Flow - Duonebs Number of Bronchodilator Doses given?: 2 - Pre/Post Peak Flow Pre Treatment Peak Flow: 2 Post treatment Peak Flow: 2 - Steroid Treatment Steroid: Oral - Clinical Response Clinical Response: Improved Medical Decision Making Medical Decision Makin:57 Initial impression: 51 year old male with asthma Initial plan: * duoneb 3ml INH 2x times * solumedrol 60mg PO * peak flow pre post treatment 2x times * reevaluation 7am: pt. still wheezing, will provide one more neb treatment and sign out to dr. anderson pending reassessment. Scribe Attestation: Documented by Niharika Taveras, acting as a scribe for Richard Smith MD. Provider Scribe Attestation: All medical record entries made by the Scribe were at my direction and personally dictated by me. I have reviewed the chart and agree that the record accurately reflects my personal performance of the history, physical exam, medical decision making, and the department course for this patient. I have also personally directed, reviewed, and agree with the discharge instructions and disposition. Disposition - Clinical Impression Clinical Impression: Asthma - Patient ED Disposition Is Patient to be Admitted: Transfer of Care - Disposition Referrals: Yan Thompson MD [Family Provider] - Disposition: Transfer of Care Disposition Time: 07:00 Condition: STABLE Patient Signed Over To: Candelario Anderson Handoff Comments: pending reassessment after neb
--- NOTE | 2017-01-11 08:31 | ED PDOC ---
- ECG O2 Sat by Pulse Oximetry: 99 (RA) Medical Decision Making Medical Decision Makin:00 patient signed out to me by Dr. Smith. Pending meds and re-eval. 8;30 Wheezing is resolved. Upon provider reevaluation patient is feeling better, is medically stable, and requires no further treatment in the ED at this time. Counseling was provided and all questions were answered regarding diagnosis. There is agreement to discharge plan. Return if symptoms persist or worsen. Disposition Counseled Patient/Family Regarding: Studies Performed, Diagnosis - Clinical Impression Clinical Impression: Asthma exacerbation attacks - POA Present On Arrival: None - Disposition Referrals: Yan Thompson MD [Family Provider] - Disposition: Routine/Home Disposition Time: 08:30 Condition: GOOD Prescriptions: Albuterol HFA [Ventolin HFA 90 mcg/actuation (8 g)] 1 puff IH QID PRN #60 inhaler PRN Reason: Wheezing predniSONE [Prednisone] 20 mg PO DAILY 4 Days Instructions: Asthma (ED)
[2017-01-11 08:32] VITALS: BP 131/75; PULSE 90; RESP 20
--- NOTE | 2017-01-13 09:30 | CARD ---
APPROVED REPORT EKG Measurement Heart [id number] <Conclusion> Normal sinus rhythm Normal ECG
== END 2017-01-11 09:13 | disposition home or self-care (01) ==
LOC: H.ER 05:46
DX: J45.901 Unspecified asthma with (acute) exacerbation (principal); F41.9 Anxiety disorder, unspecified; F32.9 Major depressive disorder, single episode, unspecified; F17.210 Nicotine dependence, cigarettes, uncomplicated; J44.9 Chronic obstructive pulmonary disease, unspecified

== ENCOUNTER 2017-02-07 06:14 | Emergency (ER) | payer OTHER ==
[2017-02-07 06:14] VITALS: BMI 33.3
[2017-02-07 06:27] VITALS: BP 152/65; PULSE 75; RESP 18; TEMP 98.2; O2SAT 97
--- NOTE | 2017-02-07 06:44 | ED PDOC ---
HPI: General Adult Time Seen by Provider: 02/07/17 06:39 Chief Complaint (Nursing): Med Refill Chief Complaint (Provider): Med Refill History Per: Patient History/Exam Limitations: no limitations Onset/Duration Of Symptoms: Mins (prior to arrival) Additional Complaint(s): Lai Perea is a 51 year old male with a previous medical history of asthma , who is well known to emergency department, request Albuterol inhaler refill. Reports he is currently using his friend's pump and feels well at the moment but concerned about future asthma attack. Denies any medical complaints. PMD: none provided Past Medical History Reviewed: Historical Data, Nursing Documentation, Vital Signs Vital Signs: Last Vital Signs Temp 98.2 F 02/07/17 06:22 Pulse 75 02/07/17 06:22 Resp 18 02/07/17 06:22 BP 152/65 H 02/07/17 06:22 Pulse Ox 97 02/07/17 06:53 - Medical History PMH: Anxiety, Asthma, Bronchitis, COPD, Depression, Gastritis Denies: HIV, HTN, Chronic Kidney Disease, Seizures, Sexually Transmitted Disease - Family History Family History: States: Diabetes - Social History Current smoker - smoking cessation education provided: Yes Alcohol: None - Immunization History Hx Tetanus Toxoid Vaccination: No Hx Influenza Vaccination: No Hx Pneumococcal Vaccination: No - Home Medications Home Medications: Ambulatory Orders Medication Instructions Recorded Albuterol HFA [Ventolin HFA 90 1 puff IH QID PRN #60 inhaler 01/11/17 mcg/actuation (8 g)] predniSONE [Prednisone] 20 mg PO DAILY 4 Days 01/11/17 Albuterol HFA [Ventolin HFA 90 1 puff INH RQ4 PRN #1 inhaler 01/21/17 mcg/actuation (8 g)] Gabapentin [Neurontin] 300 mg PO TID #90 cap 01/21/17 PARoxetine [Paxil] 20 mg PO QAM #30 tab 01/21/17 metFORMIN [glucOPHAGE] 500 mg PO BIDCC #60 tab 01/21/17 traZODone [Desyrel] 100 mg PO HS #30 tab 01/21/17 Albuterol HFA [Ventolin HFA 90 2 puff IH [id number] #1 puff 02/07/17 mcg/actuation (8 g)] - Allergies Allergies/Adverse Reactions: Allergies Allergy/AdvReac Type Severity Reaction Status Date / Time FISH Allergy ANAPHYLAXIS Verified 12/30/16 01:11 Fish Containing Products Allergy ANAPHYLAXIS Verified 12/30/16 01:11 shellfish derived Allergy ANAPHYLAXIS Verified 12/30/16 01:11 seafood Allergy ANAPHYLAXIS Uncoded 12/30/16 05:41 Review of Systems ROS Statement: Except As Marked, All Systems Reviewed And Found Negative Constitutional: Negative for: Other (medical complaints) Physical Exam - Reviewed Nursing Documentation Reviewed: Yes Vital Signs Reviewed: Yes - Physical Exam Appears: Positive for: Well, Non-toxic, No Acute Distress Head Exam: Positive for: ATRAUMATIC, NORMAL INSPECTION, NORMOCEPHALIC Skin: Positive for: Normal Color, Warm, Dry Eye Exam: Positive for: EOMI, Normal appearance, PERRL ENT: Positive for: Normal ENT Inspection Neck: Positive for: Normal, Painless ROM, Supple Cardiovascular/Chest: Positive for: Regular Rate, Rhythm Respiratory: Positive for: Normal Breath Sounds. Negative for: Crackles, Rales , Rhonchi, Wheezing, Respiratory Distress Gastrointestinal/Abdominal: Positive for: Normal Exam, Bowel Sounds, Soft. Negative for: Tenderness Extremity: Positive for: Normal ROM Neurologic/Psych: Positive for: Alert, Oriented - ECG O2 Sat by Pulse Oximetry: 97 (RA) Pulse Ox Interpretation: Normal Medical Decision Making Medical Decision Making: Initial Impression: Asthma Initial Plan: * Medication refill: Albuterol Upon provider evaluation patient is medically stable, and requires no further treatment in the ED at this time. Patient will be discharged home with Rx for Albuterol inhaler. Counseling was provided and all questions were answered regarding diagnosis and need for follow up with PCP. There is agreement to discharge plan. Return if symptoms persist or worsen. Clinical Impression: Asthma; Medication refill Scribe Attestation: Documented by Essence Woods, acting as a scribe for Richard Smith MD. Provider Scribe Attestation: All medical record entries made by the Scribe were at my direction and personally dictated by me. I have reviewed the chart and agree that the record accurately reflects my personal performance of the history, physical exam, medical decision making, and the department course for this patient. I have also personally directed, reviewed, and agree with the discharge instructions and disposition. Disposition - Clinical Impression Clinical Impression: Asthma - Disposition Referrals: [facility] [Outside] Disposition: Routine/Home Disposition Time: 06:30 Condition: STABLE Prescriptions: Albuterol HFA [Ventolin HFA 90 mcg/actuation (8 g)] 2 puff IH [id number] #1 puff Instructions: Asthma (ED)
== END 2017-02-07 07:03 | disposition home or self-care (01) ==
LOC: H.ER 06:14
DX: Z76.0 Encounter for issue of repeat prescription (principal); J44.9 Chronic obstructive pulmonary disease, unspecified

== ENCOUNTER 2017-02-15 21:49 | Emergency (ER) | payer OTHER ==
[2017-02-15 21:49] VITALS: BMI 33.3
[2017-02-15 22:07] VITALS: BP 137/78; PULSE 84; RESP 16; TEMP 98.6; O2SAT 98
--- NOTE | 2017-02-15 23:03 | ED PDOC ---
ATTENTION PHYSICIANS Hyperglycemia/Hypoglycemia Chief Complaint (Provider): high blood sugar History Per: Patient History/Exam Limitations: no limitations Onset/Duration Of Symptoms: Days (1) Associated Infectious Symptoms: denies: Cough, Dysuria, Urinary Urgency, Urinary Frequency, Nausea, Vomiting, Diarrhea : The patient does not have any of the infectious symptoms listed except for those marked. Treatment Prior To Provider Evaluation: None Additional Complaint(s): 51 yo M with PMHx of cocaine abuse and asthma presents to ED for refill of his test strips to check his BS. Patient states he had BS of 400 this AM, after large cake the night before. However patient has been compliant with medication (metformin) and his accucheck in triage is 226. Patient states some lightheadness/headache in AM, which have now resolved. Patient states no complaints, though needs Rx to get test strips. Patient states he has enough medication x 2 weeks. Patient has not been compliant with follow up for DM at PCP. Patient denies polyuria, polydipsia, poluphagia, cough, abdominal pain, nausea, vomiting, substance use, fever, or chills. PMD: Dr. Nasir Thompson <Chris Shipman - Last Filed: 02/15/17 23:45> <Suzan Gaines - Last Filed: 02/18/17 14:35> Time Seen by Provider: 02/15/17 22:28 Chief Complaint (Nursing): Headache Supervising Attending Note - Supervising Attending Note The Documented history was done by the: Physician Lead Javascript Developer, Attending Physician The documented physical exam was done by the: Physician Lead Javascript Developer, Attending Physician - Attestation: I have personally seen and examined this patient.: Yes I have fully participated in the care of the patient.: Yes I have reviewed all pertinent clinical information, including history, physical exam and plan: Yes <Suzan Gaines - Last Filed: 02/18/17 14:35> Past Medical History Reviewed: Historical Data, Nursing Documentation, Vital Signs Vital Signs: Last Vital Signs Temp 98.6 F 02/15/17 22:00 Pulse 84 02/15/17 22:00 Resp 16 02/15/17 22:00 BP 137/78 02/15/17 22:00 Pulse Ox 98 02/15/17 22:00 - Medical History PMH: Anxiety, Asthma, Bronchitis, COPD, Depression, Gastritis Denies: HIV, HTN, Chronic Kidney Disease, Seizures, Sexually Transmitted Disease - Family History Family History: States: Diabetes - Immunization History Hx Tetanus Toxoid Vaccination: No Hx Influenza Vaccination: No Hx Pneumococcal Vaccination: No <ShipmanChris - Last Filed: 02/15/17 23:45> Vital Signs: Last Vital Signs Temp 98.6 F 02/15/17 22:00 Pulse 84 02/15/17 22:00 Resp 16 02/15/17 22:00 BP 137/78 02/15/17 22:00 Pulse Ox 98 02/15/17 23:53 <Suzan Gaines - Last Filed: 02/18/17 14:35> - Home Medications Home Medications: Ambulatory Orders Medication Instructions Recorded Albuterol HFA [Ventolin HFA 90 1 puff IH QID PRN #60 inhaler 01/11/17 mcg/actuation (8 g)] predniSONE [Prednisone] 20 mg PO DAILY 4 Days 01/11/17 Albuterol HFA [Ventolin HFA 90 1 puff INH RQ4 PRN #1 inhaler 01/21/17 mcg/actuation (8 g)] Gabapentin [Neurontin] 300 mg PO TID #90 cap 01/21/17 PARoxetine [Paxil] 20 mg PO QAM #30 tab 01/21/17 metFORMIN [glucOPHAGE] 500 mg PO BIDCC #60 tab 01/21/17 traZODone [Desyrel] 100 mg PO HS #30 tab 01/21/17 Albuterol HFA [Ventolin HFA 90 2 puff IH [id number] #1 puff 02/07/17 mcg/actuation (8 g)] Blood Sugar Diagnostic [True 1 each SC BID #50 strip 02/15/17 Metrix Glucose Test Strip] - Allergies Allergies/Adverse Reactions: Allergies Allergy/AdvReac Type Severity Reaction Status Date / Time FISH Allergy ANAPHYLAXIS Verified 12/30/16 01:11 Fish Containing Products Allergy ANAPHYLAXIS Verified 12/30/16 01:11 shellfish derived Allergy ANAPHYLAXIS Verified 12/30/16 01:11 seafood Allergy ANAPHYLAXIS Uncoded 12/30/16 05:41 Review of Systems ROS Statement: Except As Marked, All Systems Reviewed And Found Negative Constitutional: Negative for: Fever, Chills Cardiovascular: Negative for: Chest Pain Respiratory: Negative for: Shortness of Breath Gastrointestinal: Negative for: Nausea, Vomiting, Abdominal Pain, Diarrhea, Constipation Genitourinary Male: Negative for: Dysuria, Frequency, Incontinence, Hematuria Neurological: Negative for: Weakness, Numbness, Headache, Dizziness <Chris Shipman - Last Filed: 02/15/17 23:45> Physical Exam - Reviewed Nursing Documentation Reviewed: Yes Vital Signs Reviewed: Yes - Physical Exam Appears: Positive for: Well, Non-toxic, No Acute Distress Head Exam: Positive for: ATRAUMATIC, NORMAL INSPECTION, NORMOCEPHALIC Skin: Positive for: Normal Color, Warm, Dry Eye Exam: Positive for: EOMI, Normal appearance, PERRL ENT: Positive for: Normal ENT Inspection Neck: Positive for: Normal, Painless ROM, Supple Cardiovascular/Chest: Positive for: Regular Rate, Rhythm Respiratory: Positive for: CNT, Normal Breath Sounds Gastrointestinal/Abdominal: Positive for: Normal Exam, Bowel Sounds, Soft, Other (obese). Negative for: Tenderness Back: Positive for: Normal Inspection. Negative for: L CVA Tenderness, R CVA Tenderness Extremity: Positive for: Normal ROM. Negative for: Tenderness, Pedal Edema Neurologic/Psych: Positive for: Alert, Oriented <Chris Shipman - Last Filed: 02/15/17 23:45> - Laboratory Results Urine dip results: Positive for: Glucose (100). Negative for: Leukocyte Esterase, Blood, Nitrate, Ketones - ECG O2 Sat by Pulse Oximetry: 98 Pulse Ox Interpretation: Normal - Progress ED Course And Treament: Time: 2315 Impression: 51 yo M with PMHx of cocaine abuse, asthma, DM presents for test strip refill, found to have BS 226. history of hyperglycemia including 400 this AM. Asymptomatic. Hemodynamically stable. No complaints at this time Plan: -Urine dip (if negative for ketones, will discharge home with refills and ensure close follow up) -1 Liter of water PO Re-evaluation Time: 23:40 (no ketonuria, mild glucosuria) <Chris Shipman - Last Filed: 02/15/17 23:45> Disposition - Patient ED Disposition Is Patient to be Admitted: No Counseled Patient/Family Regarding: Studies Performed, Diagnosis, Need For Followup, Rx Given - Disposition Disposition: Routine/Home Disposition Time: 23:45 <Chris Shipman - Last Filed: 02/15/17 23:45> <Suzan Gaines - Last Filed: 02/18/17 14:35> - Clinical Impression Clinical Impression: Hyperglycemia - Disposition Condition: STABLE Additional Instructions: Follow up with Dr. Thompson or another primary care provider as soon as possible (2-3 days). Return to ED for new or worsening symptoms. Prescriptions: Blood Sugar Diagnostic [True Metrix Glucose Test Strip] 1 each SC BID #50 strip Instructions: Diabetes Mellitus Type 2 in Adults (ED), Diabetic Hyperglycemia ( ED) Forms: [email or web address] [facility] (Estonian) Print Language: SAMI
== END 2017-02-15 23:47 | disposition home or self-care (01) ==
LOC: H.ER 21:49
DX: E11.65 Type 2 diabetes mellitus with hyperglycemia (principal); Z86.59 Personal history of other mental and behavioral disorders; F14.10 Cocaine abuse, uncomplicated; J44.9 Chronic obstructive pulmonary disease, unspecified

== ENCOUNTER 2017-02-20 06:40 | Emergency (ER) | payer OTHER, SELFPAY ==
[2017-02-20 06:40] VITALS: BMI 33.3
[2017-02-20] MEDS ORDERED: Sodium Chloride 0.9% 1,000 ML IV STA (07:14)
[2017-02-20] MEDS ORDERED: Albuterol-Ipratrop 3 mg / 0.5 (3 ml) UD INH STA ×2 (07:29→10:09)
[2017-02-20] MEDS ORDERED: Albuterol-Ipratrop 3 mg / 0.5 (3 ml) UD ONE ×2 (07:35→12:52)
--- NOTE | 2017-02-20 07:39 | ED PDOC ---
HPI: Headache Time Seen by Provider: 02/20/17 07:05 Chief Complaint (Nursing): Headache Chief Complaint (Provider): headache History Per: Patient History/Exam Limitations: no limitations Onset/Duration Of Symptoms: Days (x 4-5) Additional Complaint(s): Lai Perea is a 51 year old male, with a previous medical history of diabetes, asthma and substance abuse, who presents to the ED with complaints of a headache ongoing for 4-5 days associated with a glucose level of 400. Patient denies any visual changes, fevers, chills, syncope, weakness or numbness. As per previous charts, patient was admitted for psych evaluations and had several ED visits for asthma and substance abuse. PMD: none provided Past Medical History Reviewed: Historical Data, Nursing Documentation, Vital Signs Vital Signs: Last Vital Signs Temp 98.2 F 02/20/17 06:48 Pulse 96 H 02/20/17 06:48 Resp 17 02/20/17 06:48 BP 135/77 02/20/17 06:48 Pulse Ox 97 02/20/17 06:48 - Medical History PMH: Anxiety, Asthma, Bronchitis, COPD, Depression, Diabetes, Gastritis Denies: HIV, HTN, Chronic Kidney Disease, Seizures, Sexually Transmitted Disease - Family History Family History: States: Diabetes - Social History Current smoker - smoking cessation education provided: Yes - Immunization History Hx Tetanus Toxoid Vaccination: No Hx Influenza Vaccination: No Hx Pneumococcal Vaccination: No - Home Medications Home Medications: Ambulatory Orders Medication Instructions Recorded Albuterol HFA [Ventolin HFA 90 1 puff IH QID PRN #60 inhaler 01/11/17 mcg/actuation (8 g)] predniSONE [Prednisone] 20 mg PO DAILY 4 Days 01/11/17 Albuterol HFA [Ventolin HFA 90 1 puff INH RQ4 PRN #1 inhaler 01/21/17 mcg/actuation (8 g)] Gabapentin [Neurontin] 300 mg PO TID #90 cap 01/21/17 PARoxetine [Paxil] 20 mg PO QAM #30 tab 01/21/17 metFORMIN [glucOPHAGE] 500 mg PO BIDCC #60 tab 01/21/17 traZODone [Desyrel] 100 mg PO HS #30 tab 01/21/17 Albuterol HFA [Ventolin HFA 90 2 puff IH [id number] #1 puff 02/07/17 mcg/actuation (8 g)] Blood Sugar Diagnostic [True 1 each SC BID #50 strip 02/15/17 Metrix Glucose Test Strip] - Allergies Allergies/Adverse Reactions: Allergies Allergy/AdvReac Type Severity Reaction Status Date / Time FISH Allergy ANAPHYLAXIS Verified 12/30/16 01:11 Fish Containing Products Allergy ANAPHYLAXIS Verified 12/30/16 01:11 shellfish derived Allergy ANAPHYLAXIS Verified 12/30/16 01:11 seafood Allergy ANAPHYLAXIS Uncoded 12/30/16 05:41 Review of Systems ROS Statement: Except As Marked, All Systems Reviewed And Found Negative Constitutional: Negative for: Fever, Chills Eyes: Negative for: Vision Change Neurological: Positive for: Headache. Negative for: Weakness, Numbness Physical Exam - Reviewed Nursing Documentation Reviewed: Yes Vital Signs Reviewed: Yes - Physical Exam Appears: Positive for: Well, Non-toxic, No Acute Distress Head Exam: Positive for: ATRAUMATIC, NORMAL INSPECTION, NORMOCEPHALIC Skin: Positive for: Normal Color, Warm, Diaphoresis (mildly ) Eye Exam: Positive for: EOMI, Normal appearance, PERRL ENT: Positive for: Normal ENT Inspection Neck: Positive for: Normal, Painless ROM, Supple Cardiovascular/Chest: Positive for: Regular Rate, Rhythm Respiratory: Positive for: Wheezing (bilateral). Negative for: Accessory Muscle Use, Respiratory Distress Gastrointestinal/Abdominal: Positive for: Normal Exam, Bowel Sounds, Soft. Negative for: Tenderness Back: Positive for: Normal Inspection Extremity: Positive for: Normal ROM Neurologic/Psych: Positive for: Alert, Oriented. Negative for: Motor/Sensory Deficits - Laboratory Results Result Diagrams: 02/20/17 07:53 02/20/17 07:53 - ECG O2 Sat by Pulse Oximetry: 97 (RA) Pulse Ox Interpretation: Normal Medical Decision Making Medical Decision Making: Initial Impression: Headache Initial Plan: * CT head w/o contrast * EKG * urine drug screen * labs * Troponin I * duo-neb * IV NS 1,000 ml at 1,000 ml/hr * toradol 30 mg IV * tylenol 650 mg PO * reevaluation 08:51 CT head FINDINGS: HEMORRHAGE: No acute parenchymal, subarachnoid or extra-axial hemorrhage. BRAIN: No evidence of large acute infarct. No obvious parenchymal nor extra-axial mass or collection seen on this noncontrast study. VENTRICLES: No evidence of obstructive hydrocephalus CALVARIUM: Calvarium is intact. PARANASAL SINUSES: Unremarkable as visualized. No significant inflammatory changes. MASTOID AIR CELLS: Unremarkable as visualized. No inflammatory changes. OTHER FINDINGS: None. IMPRESSION: No acute intracranial hemorrhage. -------- pt slept in ED for several hours. On re-eval improved, CT brain and bloodwork reviewed w patient. Educated on cocaine avoidance and risks of continuing cocaine abuse. Scribe Attestation: Documented by Emily Blue, acting as a scribe for Ricky Tang D.O. Provider Scribe Attestation: All medical record entries made by the Scribe were at my direction and personally dictated by me. I have reviewed the chart and agree that the record accurately reflects my personal performance of the history, physical exam, medical decision making, and the department course for this patient. I have also personally directed, reviewed, and agree with the discharge instructions and disposition. Disposition - Clinical Impression Clinical Impression: Acute headache, Cocaine abuse - Patient ED Disposition Is Patient to be Admitted: No Counseled Patient/Family Regarding: Studies Performed, Diagnosis, Need For Followup - Disposition Referrals: [facility] [Outside] Disposition: Routine/Home Disposition Time: 14:00 Condition: STABLE Additional Instructions: Avoid cocaine. Return to ER for any worse or new symptoms. Instructions: Cocaine Abuse (ED), Acute Headache (ED)
[2017-02-20 08:03] LABS: BASO % 0.8 % (0.0-2.0); EOS # 0.2 K/uL (0.0-0.7); EOS % 3.5 % (0.0-4.0); HEMOGLOBIN 15.1 g/dL (12.0-18.0); LYMPH # 1.2 K/uL (1.0-4.3); LYMPH % 23.8 % (20.0-40.0); MEAN CELL VOLUME 89.3 fl (80.0-94.0); MEAN CORPUSCULAR HEMOGLOBIN 30.4 pg (27.0-31.0); MEAN PLATELET VOLUME 8.4 fl (7.2-11.7); MONO # 0.5 K/uL (0.0-0.8); MONO % 10.3 % (0.0-10.0); NEUT # 3.1 K/uL (1.8-7.0); NEUT % 61.6 % (50.0-75.0); NRBC % 0.2 % (0.0-0.0); RBC 4.97 Mil/uL (4.40-5.90); RED CELL DISTRIBUTION WIDTH 13.6 % (11.5-14.5)
[2017-02-20 08:16] LABS: ALB/GLOB RATIO 1.3 (1.0-2.1); ALBUMIN 4.3 g/dL (3.5-5.0); ALT/SGPT 56 U/L (21-72); AST/SGOT 38 U/L (17-59); BLOOD UREA NITROGEN 15 mg/dl (9-20); CALCIUM 9.6 mg/dL (8.4-10.2); GFR AFRICAN-AMERICAN > 60; GFR NON-AFRICAN AMERICAN > 60
--- NOTE | 2017-02-20 09:08 | CT ---
PROCEDURE: CT HEAD WITHOUT CONTRAST. HISTORY: r/o ICH COMPARISON: None available. TECHNIQUE: Axial computed tomography images were obtained through the head/brain without intravenous contrast. Radiation dose: Total exam DLP = 1566.66 MGy-cm. This CT exam was performed using one or more of the following dose reduction techniques: Automated exposure control, adjustment of the mA and/or kV according to patient size, and/or use of iterative reconstruction technique. FINDINGS: HEMORRHAGE: No acute parenchymal, subarachnoid or extra-axial hemorrhage. BRAIN: No evidence of large acute infarct. No obvious parenchymal nor extra-axial mass or collection seen on this noncontrast study. VENTRICLES: No evidence of obstructive hydrocephalus CALVARIUM: Calvarium is intact. PARANASAL SINUSES: Unremarkable as visualized. No significant inflammatory changes. MASTOID AIR CELLS: Unremarkable as visualized. No inflammatory changes. OTHER FINDINGS: None. IMPRESSION: No acute intracranial hemorrhage.
--- NOTE | 2017-02-20 10:02 | CARD ---
APPROVED REPORT EKG Measurement Heart [id number] [place] [id number] [id number] <Conclusion> Normal sinus rhythm Normal ECG
[2017-02-20 11:32] VITALS: TEMP 97.6
[2017-02-20 14:00] LABS: BARBITURATES, UR NEGATIVE (NEGATIVE); BENZODIAZEPINES, UR NEGATIVE (NEGATIVE); OPIATES, UR NEGATIVE (NEGATIVE); PHENCYCLIDINE, UR NEGATIVE (NEGATIVE)
[2017-02-20 15:56] VITALS: BP 118/73; PULSE 64; RESP 18; O2SAT 97
== END 2017-02-20 16:42 | disposition home or self-care (01) ==
LOC: H.ER 06:40
DX: R51 Headache (principal); R06.2 Wheezing; J45.909 Unspecified asthma, uncomplicated; E11.9 Type 2 diabetes mellitus without complications; F19.10 Other psychoactive substance abuse, uncomplicated

== ENCOUNTER 2017-02-26 08:04 | Observation (INO) | payer OTHER, SELFPAY ==
[2017-02-26 08:05] VITALS: BMI 33.3
[2017-02-26] MEDS ORDERED: Albuterol-Ipratrop 3 mg / 0.5 (3 ml) UD INH STA ×2 (08:23→08:38)
[2017-02-26 08:26] VITALS: O2SAT 96
--- NOTE | 2017-02-26 08:26 | ED PDOC ---
HPI: Asthma Time Seen by Provider: 02/26/17 08:18 Chief Complaint (Nursing): Cough, Cold, Congestion Chief Complaint (Provider): asthma History Per: Patient History/Exam Limitations: no limitations Onset/Duration Of Symptoms: Days (x 3) Additional Complaint(s): Lai Perea is a 51 year old male, with a previous medical history of asthma, well known to this ED, who presents to the ED with complaints of worsening asthma associated with a non productive cough ongoing for 3 days. He reports that he ran out of his inhaler 1 week ago and has been trying to "tough it out." He reports that the hot weather has triggered his asthma. Patient denies any chest pain, vomiting, fever or chills. He reports no history of prior intubations. PMD: [facility] Past Medical History Reviewed: Historical Data, Nursing Documentation, Vital Signs Vital Signs: Last Vital Signs Temp 97.8 F 02/26/17 08:12 Pulse 82 02/26/17 08:12 Resp 20 02/26/17 08:12 BP 129/71 02/26/17 08:12 Pulse Ox 96 02/26/17 08:12 - Medical History PMH: Anxiety, Asthma, Bronchitis, COPD, Depression, Diabetes, Gastritis Denies: HIV, HTN, Chronic Kidney Disease, Seizures, Sexually Transmitted Disease - Family History Family History: States: Diabetes - Immunization History Hx Tetanus Toxoid Vaccination: No Hx Influenza Vaccination: No Hx Pneumococcal Vaccination: No - Home Medications Home Medications: Ambulatory Orders Medication Instructions Recorded Albuterol HFA [Ventolin HFA 90 1 puff IH QID PRN #60 inhaler 01/11/17 mcg/actuation (8 g)] predniSONE [Prednisone] 20 mg PO DAILY 4 Days 01/11/17 Albuterol HFA [Ventolin HFA 90 1 puff INH RQ4 PRN #1 inhaler 01/21/17 mcg/actuation (8 g)] Gabapentin [Neurontin] 300 mg PO TID #90 cap 01/21/17 PARoxetine [Paxil] 20 mg PO QAM #30 tab 01/21/17 metFORMIN [glucOPHAGE] 500 mg PO BIDCC #60 tab 01/21/17 traZODone [Desyrel] 100 mg PO HS #30 tab 01/21/17 Albuterol HFA [Ventolin HFA 90 2 puff IH [id number] #1 puff 02/07/17 mcg/actuation (8 g)] Blood Sugar Diagnostic [True 1 each SC BID #50 strip 02/15/17 Metrix Glucose Test Strip] Albuterol HFA [Ventolin HFA 90 2 puff IH Q6 #1 inhaler 02/26/17 mcg/actuation (8 g)] Prednisone 50 mg PO DAILY #3 tablet 02/26/17 - Allergies Allergies/Adverse Reactions: Allergies Allergy/AdvReac Type Severity Reaction Status Date / Time FISH Allergy ANAPHYLAXIS Verified 02/26/17 08:23 Fish Containing Products Allergy ANAPHYLAXIS Verified 02/26/17 08:23 shellfish derived Allergy ANAPHYLAXIS Verified 02/26/17 08:23 seafood Allergy ANAPHYLAXIS Uncoded 02/26/17 08:23 Review of Systems ROS Statement: Except As Marked, All Systems Reviewed And Found Negative Constitutional: Negative for: Fever, Chills Cardiovascular: Negative for: Chest Pain Respiratory: Positive for: Cough, Shortness of Breath, Wheezing. Negative for: Sputum Gastrointestinal: Negative for: Nausea, Vomiting, Abdominal Pain, Diarrhea, Constipation Genitourinary Male: Negative for: Dysuria Skin: Negative for: Rash Neurological: Negative for: Weakness, Numbness, Headache Physical Exam - Reviewed Nursing Documentation Reviewed: Yes Vital Signs Reviewed: Yes - Physical Exam Appears: Positive for: Well, Non-toxic, No Acute Distress (speaking in complete sentences. no tachypnea) Head Exam: Positive for: ATRAUMATIC, NORMAL INSPECTION, NORMOCEPHALIC Skin: Positive for: Normal Color, Warm, Dry Eye Exam: Positive for: EOMI, Normal appearance, PERRL Neck: Positive for: Normal, Supple Cardiovascular/Chest: Positive for: Regular Rate, Rhythm Respiratory: Positive for: Decreased Breath Sounds, Wheezing Gastrointestinal/Abdominal: Positive for: Soft. Negative for: Tenderness, Mass , Distended Back: Positive for: Normal Inspection Extremity: Positive for: Normal ROM Neurologic/Psych: Positive for: Alert, Oriented - ECG O2 Sat by Pulse Oximetry: 96 (RA) Pulse Ox Interpretation: Normal Medical Decision Making Medical Decision Making: Symptoms consistent with asthma exacerbation. R/o pna Initial Plan: * CXR * duoneb * solu-medrol * peak flow pre/post treatment * reevaluation Scribe Attestation: Documented by Emily Blue, acting as a scribe for Chaparrita Kirkland MD. Provider Scribe Attestation: All medical record entries made by the Scribe were at my direction and personally dictated by me. I have reviewed the chart and agree that the record accurately reflects my personal performance of the history, physical exam, medical decision making, and the department course for this patient. I have also personally directed, reviewed, and agree with the discharge instructions and disposition. 9:38AM Cxray negative 10:49Am Patient's initial PF was 200 but repeat PF was 350 after 3 treatments. He has been monitored for 3 hours with improvement of symmptoms. Patient reports that he feels better. He has no tachypnea and has normal O2 saturation. His wheezing is resolved. ED OBSERVATION Discharge: Yes Date of observation admission: 02/26/17 Time of observation admission: 08:12 - Observation admission statement Patient is being placed in observation because:: wheezing and shortness of breath - Goals of Observation Goals of observation are:: nebulizers and monitoring of respiratory status Disposition - Clinical Impression Clinical Impression: Asthma exacerbation, mild - Disposition Disposition: Routine/Home Disposition Time: 08:12 Condition: FAIR
--- NOTE | 2017-02-26 09:32 | RAD ---
HISTORY: shortness of breath COMPARISON: 12/29/2016 FINDINGS: LUNGS: No active pulmonary disease. PLEURA: No significant pleural effusion identified, no pneumothorax apparent. CARDIOVASCULAR: Normal. OSSEOUS STRUCTURES: No significant abnormalities. VISUALIZED UPPER ABDOMEN: Normal. OTHER FINDINGS: None. IMPRESSION: No active disease.
[2017-02-26 11:10] VITALS: BP 126/85; PULSE 88; RESP 16; TEMP 98.2
== END 2017-02-26 10:49 | disposition home or self-care (01) ==
LOC: H.ER 08:04 → H.EROBSV 08:12
PROVIDERS: ADMIT Emergency Medicine; ATTEND Emergency Medicine
DX: J45.901 Unspecified asthma with (acute) exacerbation (principal); Z91.013 Allergy to seafood; F41.9 Anxiety disorder, unspecified; J44.9 Chronic obstructive pulmonary disease, unspecified; F32.9 Major depressive disorder, single episode, unspecified; E11.9 Type 2 diabetes mellitus without complications; K29.70 Gastritis, unspecified, without bleeding

== ENCOUNTER 2017-03-14 21:54 | Emergency (ER) | payer OTHER, SELFPAY ==
[2017-03-14 21:54] VITALS: BMI 33.3
[2017-03-14 22:06] VITALS: BP 128/85; PULSE 85; TEMP 97.6
[2017-03-14] MEDS ORDERED: Albuterol-Ipratrop 3 mg / 0.5 (3 ml) UD INH STA (22:21)
[2017-03-14] MEDS ORDERED: Albuterol-Ipratrop 3 mg / 0.5 (3 ml) UD ONE (22:24)
--- NOTE | 2017-03-14 22:30 | ED PDOC ---
HPI: SOB/CHF/COPD Chief Complaint (Provider): Short of Breath History Per: Patient History/Exam Limitations: no limitations Onset/Duration Of Symptoms: Hrs Current Symptoms Are (Timing): Still Present Initiating Event: Out Of Medications Current Respiratory Medications: None Severity: None Pain Scale Rating Of: 0 Associated Symptoms: denies: Fever, Chills, Sweating, Chest Pain <Luis Antonio Lazo - Last Filed: 03/15/17 00:35> <Suzan Gaines - Last Filed: 03/15/17 15:32> Time Seen by Provider: 03/14/17 22:09 Chief Complaint (Nursing): Shortness Of Breath Additional Complaint(s): 51 yo M w PMHx of asthma and uncontrolled DM presents to ER for one day h/o SOB. He has been unable to take any albuterol today, due to him recently losing his rescue inhaler. He denies headaches, dizziness, n/v/d, dyspnea, or cough, but does state polydypsia and polyuria. Additionally, he has not taken his diabetes medication in "a few days" because he lost it. Otherwise, he denies fevers/chills, chest pain, palpitations, abdominal pain, hematuria, or dysuria. Dr Nasir Thompson (Luis Antonio Lazo) Supervising Attending Note - Supervising Attending Note The Documented history was done by the: Physician Section Leader The documented physical exam was done by the: Physician Section Leader, Attending Physician - Attestation: I have personally seen and examined this patient.: Yes I have fully participated in the care of the patient.: Yes I have reviewed all pertinent clinical information, including history, physical exam and plan: Yes <Suzan Gaines - Last Filed: 03/15/17 15:32> Past Medical History Reviewed: Historical Data, Nursing Documentation, Vital Signs - Medical History PMH: Anxiety, Asthma, Bronchitis, COPD, Depression, Diabetes, Gastritis Denies: HIV, HTN, Chronic Kidney Disease, Seizures, Sexually Transmitted Disease - Family History Family History: States: Diabetes - Immunization History Hx Tetanus Toxoid Vaccination: No Hx Influenza Vaccination: No Hx Pneumococcal Vaccination: No <Luis Antonio Lazo - Last Filed: 03/15/17 00:35> <Suzan Gaines - Last Filed: 03/15/17 15:32> Vital Signs: Last Vital Signs Temp 97.6 F 03/14/17 22:04 Pulse 85 03/14/17 22:04 Resp 18 03/14/17 22:39 BP 128/85 03/14/17 22:04 Pulse Ox 95 03/15/17 00:38 - Home Medications Home Medications: Ambulatory Orders Medication Instructions Recorded Albuterol HFA [Ventolin HFA 90 1 puff IH QID PRN #60 inhaler 01/11/17 mcg/actuation (8 g)] predniSONE [Prednisone] 20 mg PO DAILY 4 Days 01/11/17 Albuterol HFA [Ventolin HFA 90 1 puff INH RQ4 PRN #1 inhaler 01/21/17 mcg/actuation (8 g)] Gabapentin [Neurontin] 300 mg PO TID #90 cap 01/21/17 PARoxetine [Paxil] 20 mg PO QAM #30 tab 01/21/17 metFORMIN [glucOPHAGE] 500 mg PO BIDCC #60 tab 01/21/17 traZODone [Desyrel] 100 mg PO HS #30 tab 01/21/17 Albuterol HFA [Ventolin HFA 90 2 puff IH [id number] #1 puff 02/07/17 mcg/actuation (8 g)] Blood Sugar Diagnostic [True 1 each SC BID #50 strip 02/15/17 Metrix Glucose Test Strip] Albuterol HFA [Ventolin HFA 90 2 puff IH Q6 #1 inhaler 02/26/17 mcg/actuation (8 g)] Prednisone 50 mg PO DAILY #3 tablet 02/26/17 Albuterol HFA [Ventolin HFA 90 2 puff IH Q4H PRN #1 inh 03/15/17 mcg/actuation (8 g)] metFORMIN [glucOPHAGE] 250 mg PO BID #60 tab 03/15/17 - Allergies Allergies/Adverse Reactions: Allergies Allergy/AdvReac Type Severity Reaction Status Date / Time FISH Allergy ANAPHYLAXIS Verified 03/14/17 22:06 Fish Containing Products Allergy ANAPHYLAXIS Verified 03/14/17 22:06 shellfish derived Allergy ANAPHYLAXIS Verified 03/14/17 22:06 seafood Allergy ANAPHYLAXIS Uncoded 03/14/17 22:06 Wells Criteria for PE - Wells Criteria for Pulmonary Embolism Clinical Signs and Symptoms of DVT: No P.E is #1 Diagnosis, or Equally Likely: No Heart Rate >100: No Immobilization at least 3 days;Surgery previous 4 weeks: No Previous, objectively diagnosed PE or DVT: No Hemoptysis: No Malignancy w/treatment within 6 months, or palliative: No Total Score: 0 <Luis Antonio Lazo - Last Filed: 03/15/17 00:35> Review of Systems ROS Statement: Except As Marked, All Systems Reviewed And Found Negative (see HPI) <Luis Antonio Lazo - Last Filed: 03/15/17 00:35> Physical Exam - Reviewed Nursing Documentation Reviewed: Yes Vital Signs Reviewed: Yes - Physical Exam Appears: Positive for: Non-toxic, No Acute Distress Head Exam: Positive for: ATRAUMATIC, NORMOCEPHALIC Skin: Positive for: Normal Color, Warm, Dry Eye Exam: Positive for: Normal appearance, EOMI, PERRL Neck: Positive for: Normal, Painless ROM Cardiovascular/Chest: Positive for: Regular Rate, Rhythm. Negative for: Edema Respiratory: Positive for: Decreased Breath Sounds, Wheezing (auditory and minimally b/l lower lobes). Negative for: Crackles Gastrointestinal/Abdominal: Positive for: Bowel Sounds, Distended. Negative for : Tenderness, Guarding, Rebound Back: Positive for: Normal Inspection Extremity: Negative for: Pedal Edema, Calf Tenderness Neurologic/Psych: Positive for: Alert, conduit bender II-XII, Oriented <Luis Antonio Lazo - Last Filed: 03/15/17 00:35> - ECG O2 Sat by Pulse Oximetry: 95 <Luis Antonio Lazo - Last Filed: 03/15/17 00:35> <Suzan Gaines - Last Filed: 03/15/17 15:32> - Progress ED Course And Treament: 51 yo M w PMHx of asthma and uncontrolled DM presents to ER for one day h/o SOB -Duoneb x2 -FS -UA Update 2330: -FS 373 -8u given -SOB improved Update 0030: -SOB improved following 3rd duoneb -Discharge home w medications and instructions to return to PMD (Luis Antonio Lazo) Disposition - Disposition Disposition Time: 00:30 <Luis Antonio Lazo - Last Filed: 03/15/17 00:35> <Suzan Gaines - Last Filed: 03/15/17 15:32> - Clinical Impression Clinical Impression: Asthma, Hyperglycemia - Disposition Condition: IMPROVED Prescriptions: Albuterol HFA [Ventolin HFA 90 mcg/actuation (8 g)] 2 puff IH Q4H PRN #1 inh PRN Reason: ASTHMA metFORMIN [glucOPHAGE] 250 mg PO BID #60 tab Instructions: Asthma (ED), Diabetic Hyperglycemia (ED) Forms: [employer] ([place]ien)
[2017-03-14 22:40] VITALS: RESP 18
[2017-03-14 22:41] VITALS: O2SAT 95
[2017-03-14] MEDS ORDERED: Insulin Regular 100 units/ml SC STA (23:36)
[2017-03-14] MEDS ORDERED: Insulin Regular 100 units/ml ONE (23:41)
== END 2017-03-15 00:49 | disposition home or self-care (01) ==
LOC: H.ER 21:54
DX: E11.65 Type 2 diabetes mellitus with hyperglycemia (principal); J45.909 Unspecified asthma, uncomplicated; F32.9 Major depressive disorder, single episode, unspecified; F41.9 Anxiety disorder, unspecified; J44.9 Chronic obstructive pulmonary disease, unspecified; Z79.84 Long term (current) use of oral hypoglycemic drugs

== ENCOUNTER 2017-04-07 14:13 | Emergency (ER) | payer OTHER, SELFPAY ==
[2017-04-07 14:14] VITALS: BMI 33.3
[2017-04-07 14:25] VITALS: BP 148/76; PULSE 95; RESP 16; TEMP 99; O2SAT 99
[2017-04-07] MEDS ORDERED: Albuterol-Ipratrop 3 mg / 0.5 (3 ml) UD ONE (15:06)
[2017-04-07] MEDS: Albuterol-Ipratrop 3 mg / 0.5 (3 ml) UD INH STA (15:07)
--- NOTE | 2017-04-07 15:13 | RAD ---
HISTORY: cough COMPARISON: 02/26/2017 TECHNIQUE: Chest PA and lateral FINDINGS: LUNGS: Minimal linear scar/ atelectasis at left lung base, unchanged. No infiltrate. PLEURA: No significant pleural effusion identified. No pneumothorax apparent. CARDIOVASCULAR: Normal. OSSEOUS STRUCTURES: No significant abnormalities. VISUALIZED UPPER ABDOMEN: Normal. OTHER FINDINGS: None. IMPRESSION: No active disease.
--- NOTE | 2017-04-07 15:13 | ED PDOC ---
HPI: SOB/CHF/COPD Time Seen by Provider: 04/07/17 14:35 Chief Complaint (Nursing): Cough, Cold, Congestion Chief Complaint (Provider): Wheezing History Per: Patient History/Exam Limitations: no limitations Onset/Duration Of Symptoms: Days (x4) Current Symptoms Are (Timing): Still Present Initiating Event: Out Of Medications Current Respiratory Medications: Albuterol Associated Symptoms: denies: Fever, Chest Pain Additional Complaint(s): 51 year old male presents to ED with complaints of intermittent wheezing x4 days and has a past medical history of ashtma, COPD, and bronchitis. Patient states that he depleted his supply of albuterol and requests a refill. Notes that intermittent wheezing is his usual baseline. (-) fever, hemoptysis, or chest pain. PCP: Rickey Baldwin Past Medical History Reviewed: Historical Data, Nursing Documentation, Vital Signs Vital Signs: Last Vital Signs Temp 99.0 F 04/07/17 14:22 Pulse 95 H 04/07/17 14:22 Resp 16 04/07/17 14:22 BP 148/76 04/07/17 14:22 Pulse Ox 99 04/07/17 15:18 - Medical History PMH: Anxiety, Asthma, Bronchitis, COPD, Depression, Diabetes, Gastritis Denies: HIV, HTN, Chronic Kidney Disease, Seizures, Sexually Transmitted Disease - Family History Family History: States: Diabetes - Social History Current smoker - smoking cessation education provided: Yes Ex-Smoker (has not smoked in the last 12 months): No Alcohol: None Drugs: Denies - Immunization History Hx Tetanus Toxoid Vaccination: No Hx Influenza Vaccination: No Hx Pneumococcal Vaccination: No - Home Medications Home Medications: Ambulatory Orders Medication Instructions Recorded Albuterol HFA [Ventolin HFA 90 1 puff IH QID PRN #60 inhaler 01/11/17 mcg/actuation (8 g)] predniSONE [Prednisone] 20 mg PO DAILY 4 Days 01/11/17 Albuterol HFA [Ventolin HFA 90 1 puff INH RQ4 PRN #1 inhaler 01/21/17 mcg/actuation (8 g)] Gabapentin [Neurontin] 300 mg PO TID #90 cap 01/21/17 PARoxetine [Paxil] 20 mg PO QAM #30 tab 01/21/17 metFORMIN [glucOPHAGE] 500 mg PO BIDCC #60 tab 01/21/17 traZODone [Desyrel] 100 mg PO HS #30 tab 01/21/17 Albuterol HFA [Ventolin HFA 90 2 puff IH [id number] #1 puff 02/07/17 mcg/actuation (8 g)] Blood Sugar Diagnostic [True 1 each SC BID #50 strip 02/15/17 Metrix Glucose Test Strip] Albuterol HFA [Ventolin HFA 90 2 puff IH Q6 #1 inhaler 02/26/17 mcg/actuation (8 g)] Prednisone 50 mg PO DAILY #3 tablet 02/26/17 Albuterol HFA [Ventolin HFA 90 2 puff IH Q4H PRN #1 inh 03/15/17 mcg/actuation (8 g)] metFORMIN [glucOPHAGE] 250 mg PO BID #60 tab 03/15/17 Albuterol HFA [Ventolin HFA 90 2 puff IH [id number] #60 puff 04/07/17 mcg/actuation (8 g)] - Allergies Allergies/Adverse Reactions: Allergies Allergy/AdvReac Type Severity Reaction Status Date / Time FISH Allergy ANAPHYLAXIS Verified 03/14/17 22:06 Fish Containing Products Allergy ANAPHYLAXIS Verified 03/14/17 22:06 shellfish derived Allergy ANAPHYLAXIS Verified 03/14/17 22:06 seafood Allergy ANAPHYLAXIS Uncoded 03/14/17 22:06 Curb-65 Severity Score - CURB-65 Severity Score Confusion: No Curb-65 Score: 0 Percentage 30-day mortality: 0.6% Wells Criteria for PE - Wells Criteria for Pulmonary Embolism Heart Rate >100: No Total Score: 0 Review of Systems ROS Statement: Except As Marked, All Systems Reviewed And Found Negative Constitutional: Negative for: Fever Cardiovascular: Negative for: Chest Pain Respiratory: Positive for: Wheezing (intermittent). Negative for: Hemoptysis Physical Exam - Reviewed Nursing Documentation Reviewed: Yes Vital Signs Reviewed: Yes - Physical Exam Appears: Positive for: Non-toxic, No Acute Distress Head Exam: Positive for: ATRAUMATIC, NORMOCEPHALIC Skin: Positive for: Normal Color, Warm, Dry Eye Exam: Positive for: Normal appearance Cardiovascular/Chest: Positive for: Regular Rate, Rhythm. Negative for: Murmur Respiratory: Positive for: Wheezing (minimal bilateral expiratory wheezing). Negative for: Normal Breath Sounds, Respiratory Distress (speaking full sentences) Neurologic/Psych: Positive for: Alert, Oriented. Negative for: Motor/Sensory Deficits - ECG O2 Sat by Pulse Oximetry: 99 (RA) Pulse Ox Interpretation: Normal - Progress Re-evaluation Time: 15:25 (FSBS: 138. Repeat peak flow: 400.) Condition: Re-examined, Improved Medical Decision Making Medical Decision Makin Initial impression: bronchospasm Initial plan: * CXR * Duonebs 3mL INH * Peak flow pre/post Tx 1511 CXR FINDINGS: LUNGS: Minimal linear scar/ atelectasis at left lung base, unchanged. No infiltrate. PLEURA: No significant pleural effusion identified. No pneumothorax apparent. CARDIOVASCULAR: Normal. OSSEOUS STRUCTURES: No significant abnormalities. VISUALIZED UPPER ABDOMEN: Normal. OTHER FINDINGS: None. IMPRESSION: No active disease. Scribe Attestation: Documented by Carole Sabillon, acting as a scribe for Ayush Castro PA-C. Provider Scribe Attestation: All medical record entries made by the Scribe were at my direction and personally dictated by me. I have reviewed the chart and agree that the record accurately reflects my personal performance of the history, physical exam, medical decision making, and the department course for this patient. I have also personally directed, reviewed, and agree with the discharge instructions and disposition. Disposition - Clinical Impression Clinical Impression: Bronchospasm, acute - Patient ED Disposition Is Patient to be Admitted: No - Disposition Referrals: [facility] [Outside] Disposition: Routine/Home Disposition Time: 15:26 Condition: IMPROVED Prescriptions: Albuterol HFA [Ventolin HFA 90 mcg/actuation (8 g)] 2 puff IH [id number] #60 puff Instructions: Bronchospasm (ED) Forms: [employer] (Romanian)
== END 2017-04-07 15:54 | disposition home or self-care (01) ==
LOC: H.ER 14:13
DX: J98.01 Acute bronchospasm (principal); E11.9 Type 2 diabetes mellitus without complications; F32.9 Major depressive disorder, single episode, unspecified; F41.9 Anxiety disorder, unspecified; Z79.84 Long term (current) use of oral hypoglycemic drugs

== ENCOUNTER 2017-04-26 12:15 | Emergency (ER) | payer OTHER ==
[2017-04-26 12:15] VITALS: BMI 33.3
[2017-04-26 12:53] VITALS: BP 120/73; PULSE 68; RESP 18; TEMP 97.7; O2SAT 99
--- NOTE | 2017-04-26 13:47 | ED PDOC ---
HPI: Skin/Bite Injury Time Seen by Provider: 04/26/17 13:14 Chief Complaint (Nursing): Abnormal Skin Integrity Chief Complaint (Provider): Rash History Per: Patient History/Exam Limitations: no limitations Onset/Duration Of Symptoms: Intermittent Episodes Current Symptoms Are (Timing): Still Present Location Of Injury: Anterior: Abdomen Quality Of Symptoms: Itching Additional Complaint(s): Lai is a 51 y/o male who presents to the ED for evaluation of rash. Patient states that for several years he has an intermittent rash to suprapubic area. He was informed it is due to a yeast infection, and uses creams for intermittent relief. Denies fever and chills. PMD: Non-[facility] provider Past Medical History Reviewed: Historical Data, Nursing Documentation, Vital Signs Vital Signs: Last Vital Signs Temp 97.7 F 04/26/17 12:49 Pulse 68 04/26/17 12:49 Resp 18 04/26/17 12:49 BP 120/73 04/26/17 12:49 Pulse Ox 99 04/26/17 13:51 - Medical History PMH: Anxiety, Asthma, Bronchitis, COPD, Depression, Diabetes, Gastritis Denies: HIV, HTN, Chronic Kidney Disease, Seizures, Sexually Transmitted Disease - Family History Family History: States: Diabetes - Immunization History Hx Tetanus Toxoid Vaccination: No Hx Influenza Vaccination: No Hx Pneumococcal Vaccination: No - Home Medications Home Medications: Ambulatory Orders Medication Instructions Recorded Albuterol HFA [Ventolin HFA 90 1 puff IH QID PRN #60 inhaler 01/11/17 mcg/actuation (8 g)] predniSONE [Prednisone] 20 mg PO DAILY 4 Days 01/11/17 Albuterol HFA [Ventolin HFA 90 1 puff INH RQ4 PRN #1 inhaler 01/21/17 mcg/actuation (8 g)] Gabapentin [Neurontin] 300 mg PO TID #90 cap 01/21/17 PARoxetine [Paxil] 20 mg PO QAM #30 tab 01/21/17 metFORMIN [glucOPHAGE] 500 mg PO BIDCC #60 tab 01/21/17 traZODone [Desyrel] 100 mg PO HS #30 tab 01/21/17 Albuterol HFA [Ventolin HFA 90 2 puff IH [id number] #1 puff 02/07/17 mcg/actuation (8 g)] Blood Sugar Diagnostic [True 1 each SC BID #50 strip 02/15/17 Metrix Glucose Test Strip] Albuterol HFA [Ventolin HFA 90 2 puff IH Q6 #1 inhaler 02/26/17 mcg/actuation (8 g)] Prednisone 50 mg PO DAILY #3 tablet 02/26/17 Albuterol HFA [Ventolin HFA 90 2 puff IH Q4H PRN #1 inh 03/15/17 mcg/actuation (8 g)] metFORMIN [glucOPHAGE] 250 mg PO BID #60 tab 03/15/17 Albuterol HFA [Ventolin HFA 90 2 puff IH [id number] #60 puff 04/07/17 mcg/actuation (8 g)] Nystatin/Triamcinolone [Mycolog 1 appl TP BID #1 tube 04/26/17 Cream] - Allergies Allergies/Adverse Reactions: Allergies Allergy/AdvReac Type Severity Reaction Status Date / Time FISH Allergy ANAPHYLAXIS Verified 03/14/17 22:06 Fish Containing Products Allergy ANAPHYLAXIS Verified 03/14/17 22:06 shellfish derived Allergy ANAPHYLAXIS Verified 03/14/17 22:06 seafood Allergy ANAPHYLAXIS Uncoded 03/14/17 22:06 Review of Systems ROS Statement: Except As Marked, All Systems Reviewed And Found Negative Constitutional: Negative for: Fever, Chills Skin: Positive for: Rash Physical Exam - Reviewed Nursing Documentation Reviewed: Yes Vital Signs Reviewed: Yes - Physical Exam Appears: Positive for: Well, Non-toxic, No Acute Distress Skin: Positive for: Rash (Scattered skin-colored papules with some scaling, no vesicles or openings, to the suprapubic area and around umbilical) - ECG O2 Sat by Pulse Oximetry: 99 (RA) Pulse Ox Interpretation: Normal Medical Decision Making Medical Decision Making: Time: 13:36 Initial Plan: --Patient will be discharged home with Mycolog cream. Clinical Impression: Tinea corpis Counseling was provided and all questions were answered regarding diagnosis and need for follow up with PMD. There is agreement to discharge plan. Return if symptoms persist or worsen. Scribe Attestation: Documented by Joan Worley, acting as a scribe for Ayush Castro PA-C Provider Scribe Attestation: All medical record entries made by the Scribe were at my direction and personally dictated by me. I have reviewed the chart and agree that the record accurately reflects my personal performance of the history, physical exam, medical decision making, and the department course for this patient. I have also personally directed, reviewed, and agree with the discharge instructions and disposition. Disposition - Clinical Impression Clinical Impression: Tinea corporis - Patient ED Disposition Is Patient to be Admitted: No Counseled Patient/Family Regarding: Diagnosis, Need For Followup, Rx Given - Disposition Referrals: [facility] [Outside] Disposition: Routine/Home Disposition Time: 13:36 Condition: STABLE Prescriptions: Nystatin/Triamcinolone [Mycolog Cream] 1 appl TP BID #1 tube Instructions: Skin Yeast Infection (ED) Forms: [employer] (Yakut) Print Language: ROMANSH
== END 2017-04-26 15:05 | disposition home or self-care (01) ==
LOC: H.ER 12:15
DX: B37.2 Candidiasis of skin and nail (principal)

== ENCOUNTER 2017-05-05 19:16 | Emergency (ER) | payer OTHER ==
[2017-05-05 19:16] VITALS: BMI 33.3
[2017-05-05 19:38] VITALS: BP 126/80; PULSE 81; RESP 16; TEMP 98; O2SAT 100
--- NOTE | 2017-05-05 19:54 | ED PDOC ---
HPI: General Adult Time Seen by Provider: 05/05/17 19:40 Chief Complaint (Nursing): Med Refill Chief Complaint (Provider): med refill History Per: Patient Additional Complaint(s): Patient presents to emergency department refill glucose test strips. Patient offers no acute complaints. Past Medical History Reviewed: Historical Data, Nursing Documentation, Vital Signs Vital Signs: Last Vital Signs Temp 98.0 F 05/05/17 19:35 Pulse 81 05/05/17 19:35 Resp 16 05/05/17 19:35 BP 126/80 05/05/17 19:35 Pulse Ox 100 05/05/17 19:56 - Medical History PMH: Anxiety, Asthma, COPD, Depression, Diabetes, Gastritis - Family History Family History: States: Diabetes - Living Arrangements Living Arrangements: With Family - Home Medications Home Medications: Ambulatory Orders Medication Instructions Recorded Albuterol HFA [Ventolin HFA 90 1 puff IH QID PRN #60 inhaler 01/11/17 mcg/actuation (8 g)] predniSONE [Prednisone] 20 mg PO DAILY 4 Days tab 01/11/17 Albuterol HFA [Ventolin HFA 90 1 puff INH RQ4 PRN #1 inhaler 01/21/17 mcg/actuation (8 g)] Gabapentin [Neurontin] 300 mg PO TID #90 cap 01/21/17 PARoxetine [Paxil] 20 mg PO QAM #30 tab 01/21/17 metFORMIN [glucOPHAGE] 500 mg PO BIDCC #60 tab 01/21/17 traZODone [Desyrel] 100 mg PO HS #30 tab 01/21/17 Albuterol HFA [Ventolin HFA 90 2 puff IH [id number] #1 puff 02/07/17 mcg/actuation (8 g)] Blood Sugar Diagnostic [True 1 each SC BID #50 strip 02/15/17 Metrix Glucose Test Strip] Albuterol HFA [Ventolin HFA 90 2 puff IH Q6 #1 inhaler 02/26/17 mcg/actuation (8 g)] Prednisone 50 mg PO DAILY #3 tablet 02/26/17 Albuterol HFA [Ventolin HFA 90 2 puff IH Q4H PRN #1 inh 03/15/17 mcg/actuation (8 g)] metFORMIN [glucOPHAGE] 250 mg PO BID #60 tab 03/15/17 Albuterol HFA [Ventolin HFA 90 2 puff IH [id number] #60 puff 04/07/17 mcg/actuation (8 g)] Nystatin/Triamcinolone [Mycolog 1 appl TP BID #1 tube 04/26/17 Cream] Blood Sugar Diagnostic [True 1 each ASDIR #1 bottle 05/05/17 Metrix Glucose Test Strip] - Allergies Allergies/Adverse Reactions: Allergies Allergy/AdvReac Type Severity Reaction Status Date / Time FISH Allergy ANAPHYLAXIS Verified 05/05/17 19:35 Fish Containing Products Allergy ANAPHYLAXIS Verified 05/05/17 19:35 shellfish derived Allergy ANAPHYLAXIS Verified 05/05/17 19:35 seafood Allergy ANAPHYLAXIS Uncoded 05/05/17 19:35 Review of Systems ROS Statement: Except As Marked, All Systems Reviewed And Found Negative Constitutional: Negative for: Fever Cardiovascular: Negative for: Chest Pain Respiratory: Negative for: Shortness of Breath Gastrointestinal: Negative for: Nausea, Vomiting Physical Exam - Reviewed Nursing Documentation Reviewed: Yes Vital Signs Reviewed: Yes - Physical Exam Appears: Positive for: Well, Non-toxic, No Acute Distress Skin: Negative for: Rash Eye Exam: Positive for: Normal appearance Cardiovascular/Chest: Positive for: Regular Rate, Rhythm Respiratory: Positive for: Normal Breath Sounds Neurologic/Psych: Positive for: Alert, Oriented - ECG O2 Sat by Pulse Oximetry: 100 Pulse Ox Interpretation: Normal Medical Decision Making Medical Decision Makin51 year old here for med refill Fingerstick 177 Rx given for glucose test strips. Advised PMD follow up. Disposition - Clinical Impression Clinical Impression: Diabetes, Medicine refill - Patient ED Disposition Is Patient to be Admitted: No Counseled Patient/Family Regarding: Diagnosis, Need For Followup - Disposition Referrals: Rickey Baldwin MD [Medical Doctor] - Disposition: Routine/Home Disposition Time: 20:02 Condition: STABLE Additional Instructions: Follow up with primary care doctor. Prescriptions: Blood Sugar Diagnostic [True Metrix Glucose Test Strip] 1 each ASDIR #1 bottle Instructions: Medicine Refill (ED), Diabetes Mellitus Type 2 in Adults (ED) Forms: [employer] (Syriac)
== END 2017-05-05 20:12 | disposition home or self-care (01) ==
LOC: H.ER 19:16
DX: Z76.0 Encounter for issue of repeat prescription (principal); E11.9 Type 2 diabetes mellitus without complications; F32.9 Major depressive disorder, single episode, unspecified; F41.9 Anxiety disorder, unspecified; Z79.84 Long term (current) use of oral hypoglycemic drugs; J44.9 Chronic obstructive pulmonary disease, unspecified

== ENCOUNTER 2017-05-11 12:53 | Observation (INO) | payer OTHER ==
[2017-05-11] MEDS ORDERED: Nitroglycerin 2% 15 INCH/30 GM TUBE TOP STA (13:41)
--- NOTE | 2017-05-11 13:48 | ED PDOC ---
HPI: Chest Pain Time Seen by Provider: 05/11/17 13:33 Chief Complaint (Nursing): Chest Pain Chief Complaint (Provider): Chest Pain History Per: Patient History/Exam Limitations: no limitations Onset/Duration Of Symptoms: Hrs (x3) Current Symptoms Are (Timing): Still Present Additional Complaint(s): Lai is a 51 y/o male presenting to the ED for substernal chest pain since this morning after snorting cocaine. Patient last used cocaine at 10:30AM. Patient denies shortness of breath. PMD: Rickey Baldwin Past Medical History Reviewed: Historical Data, Nursing Documentation, Vital Signs Vital Signs: Last Vital Signs Temp 97 F L 05/11/17 13:04 Pulse 76 05/11/17 13:30 Resp 17 05/11/17 13:30 BP 125/79 05/11/17 13:30 Pulse Ox 97 05/11/17 13:51 - Medical History PMH: Anxiety, Asthma, Bronchitis, COPD, Depression, Diabetes, Gastritis Denies: HIV, HTN, Chronic Kidney Disease, Seizures, Sexually Transmitted Disease Other PMH: Cocaine abuse - Surgical History Surgical History: No Surg Hx - Family History Family History: States: Diabetes - Social History Current smoker - smoking cessation education provided: Yes Alcohol: None Drugs: Cocaine - Immunization History Hx Tetanus Toxoid Vaccination: No Hx Influenza Vaccination: No Hx Pneumococcal Vaccination: No - Home Medications Home Medications: Ambulatory Orders Medication Instructions Recorded Albuterol HFA [Ventolin HFA 90 1 puff IH QID PRN #60 inhaler 01/11/17 mcg/actuation (8 g)] predniSONE [Prednisone] 20 mg PO DAILY 4 Days tab 01/11/17 Albuterol HFA [Ventolin HFA 90 1 puff INH RQ4 PRN #1 inhaler 01/21/17 mcg/actuation (8 g)] Gabapentin [Neurontin] 300 mg PO TID #90 cap 01/21/17 PARoxetine [Paxil] 20 mg PO QAM #30 tab 01/21/17 metFORMIN [glucOPHAGE] 500 mg PO BIDCC #60 tab 01/21/17 traZODone [Desyrel] 100 mg PO HS #30 tab 01/21/17 Albuterol HFA [Ventolin HFA 90 2 puff IH [id number] #1 puff 02/07/17 mcg/actuation (8 g)] Blood Sugar Diagnostic [True 1 each SC BID #50 strip 02/15/17 Metrix Glucose Test Strip] Albuterol HFA [Ventolin HFA 90 2 puff IH Q6 #1 inhaler 02/26/17 mcg/actuation (8 g)] Prednisone 50 mg PO DAILY #3 tablet 02/26/17 Albuterol HFA [Ventolin HFA 90 2 puff IH Q4H PRN #1 inh 03/15/17 mcg/actuation (8 g)] metFORMIN [glucOPHAGE] 250 mg PO BID #60 tab 03/15/17 Albuterol HFA [Ventolin HFA 90 2 puff IH [id number] #60 puff 04/07/17 mcg/actuation (8 g)] Nystatin/Triamcinolone [Mycolog 1 appl TP BID #1 tube 04/26/17 Cream] Blood Sugar Diagnostic [True 1 each MC ASDIR #1 bottle 05/05/17 Metrix Glucose Test Strip] - Allergies Allergies/Adverse Reactions: Allergies Allergy/AdvReac Type Severity Reaction Status Date / Time FISH Allergy ANAPHYLAXIS Verified 05/05/17 19:35 Fish Containing Products Allergy ANAPHYLAXIS Verified 05/05/17 19:35 shellfish derived Allergy ANAPHYLAXIS Verified 05/05/17 19:35 seafood Allergy ANAPHYLAXIS Uncoded 05/05/17 19:35 Review of Systems ROS Statement: Except As Marked, All Systems Reviewed And Found Negative Cardiovascular: Positive for: Chest Pain Respiratory: Negative for: Shortness of Breath Physical Exam - Reviewed Nursing Documentation Reviewed: Yes Vital Signs Reviewed: Yes - Physical Exam Appears: Positive for: Non-toxic, No Acute Distress Head Exam: Positive for: ATRAUMATIC, NORMAL INSPECTION, NORMOCEPHALIC Skin: Positive for: Normal Color, Warm, Dry Eye Exam: Positive for: EOMI, Normal appearance, PERRL Neck: Positive for: Normal, Supple Cardiovascular/Chest: Positive for: Regular Rate, Rhythm. Negative for: Edema, Murmur Respiratory: Positive for: Normal Breath Sounds. Negative for: Accessory Muscle Use, Respiratory Distress Gastrointestinal/Abdominal: Positive for: Normal Exam, Soft. Negative for: Tenderness Extremity: Positive for: Normal ROM. Negative for: Pedal Edema, Calf Tenderness , Deformity Neurologic/Psych: Positive for: Alert, Oriented (x3). Negative for: Motor/ Sensory Deficits - Laboratory Results Result Diagrams: 05/11/17 13:54 05/11/17 13:54 - ECG O2 Sat by Pulse Oximetry: 97 (RA) Pulse Ox Interpretation: Normal Medical Decision Making Medical Decision Making: Time: 13:41 Initial Plan: --EKG --CMP --Urine drug screen --Alcohol serum --Troponin I --CBC --Chest x-ray 2 views --Aspirin 325 mg PO --Nitro 2% applied --Pending reevaluation Scribe Attestation: Documented by Joan Worley, acting as a scribe for Kris Victoria MD Provider Scribe Attestation: All medical record entries made by the Scribe were at my direction and personally dictated by me. I have reviewed the chart and agree that the record accurately reflects my personal performance of the history, physical exam, medical decision making, and the department course for this patient. I have also personally directed, reviewed, and agree with the discharge instructions and disposition. Disposition - Clinical Impression Clinical Impression: Chest pain, Cocaine abuse - Patient ED Disposition Is Patient to be Admitted: Yes - Disposition Disposition Time: 14:32 Condition: FAIR Forms: [employer] ([place] Islander) - Pt Status Changed To: Hospital Disposition Of: Observation - POA Present On Arrival: None
[2017-05-11] MEDS ORDERED: Nitroglycerin 2% Ointment Foilpak UD TOP ONE (13:59)
[2017-05-11 14:03] LABS: BASO % 0.7 % (0.0-2.0); EOS % 0.3 % (0.0-4.0); LYMPH % 15.9 % (20.0-40.0); MEAN CELL VOLUME 88.1 fl (80.0-94.0); MEAN CORPUSCULAR HEMOGLOBIN 29.9 pg (27.0-31.0); MEAN PLATELET VOLUME 8.4 fl (7.2-11.7); MONO # 0.6 K/uL (0.0-0.8); MONO % 9.4 % (0.0-10.0); NEUT # 4.7 K/uL (1.8-7.0); NEUT % 73.7 % (50.0-75.0); RED CELL DISTRIBUTION WIDTH 13.3 % (11.5-14.5); WHITE BLOOD COUNT 6.4 K/uL (4.8-10.8)
[2017-05-11 14:12] LABS: ALB/GLOB RATIO 1.5 (1.0-2.1); ALCOHOL SERUM < 10 mg/dl (0-10); ALKALINE PHOSPHATASE 71 U/L (38-126); ALT/SGPT 56 U/L (21-72); AST/SGOT 35 U/L (17-59); BILIRUBIN,TOTAL 0.7 mg/dl (0.2-1.3); BLOOD UREA NITROGEN 14 mg/dl (9-20); CALCIUM 9.4 mg/dL (8.4-10.2); CARBON DIOXIDE 27 mmol/L (22-30); CHLORIDE 104 mmol/L (98-107); GFR AFRICAN-AMERICAN > 60; GLUCOSE,RANDOM 110 mg/dL (75-110); SODIUM 144 mmol/l (132-148); TOTAL PROTEIN 7.6 G/DL (6.3-8.2)
[2017-05-11 14:14] LABS: POTASSIUM 3.4 MMOL/L (3.6-5.0)
--- NOTE | 2017-05-11 16:20 | RAD ---
HISTORY: Chest pain COMPARISON: 04/07/2017 TECHNIQUE: Chest PA and lateral FINDINGS: LUNGS: No active pulmonary disease. PLEURA: No significant pleural effusion identified. No pneumothorax apparent. CARDIOVASCULAR: No radiographic findings to suggest acute or significant cardiovascular disease. OSSEOUS STRUCTURES: No significant abnormalities. VISUALIZED UPPER ABDOMEN: Normal. OTHER FINDINGS: None. IMPRESSION: No active disease. No significant interval change compared to the prior examination(s). Please note: No preliminary report/ innterpretation of this examination provided by emergency department personnel.
[2017-05-11 18:25] VITALS: BMI 35.1
[2017-05-12 05:38] LABS: BLOOD UREA NITROGEN 16 mg/dl (9-20); CALCIUM 9.3 mg/dL (8.4-10.2); CARBON DIOXIDE 28 mmol/L (22-30); CHLORIDE 102 mmol/L (98-107); GFR AFRICAN-AMERICAN > 60; GLUCOSE,RANDOM 136 mg/dL (75-110); POTASSIUM 3.6 MMOL/L (3.6-5.0); SODIUM 143 mmol/l (132-148)
--- NOTE | 2017-05-12 08:21 | CP.PCM.CON ---
History of Present Illness - History of Present Illness History of Present Illness: Psychiatry consult called to evaluate for suicidal ideation CC: "I'm depressed." HPI: 51 yo male w/ h/o asthma, DM, cocaine abuse (last used day of admission), reports currently feeling depressed and expressed vague suicidal ideation to staff. Patient was irritable and evasive towards automobile service writer. He reports that he last used cocaine on day of admission and reports that he had cocaine in his pocket in the ER. When automobile service writer asked the patient where the cocaine is now, he refused to answer, but then stated "I flushed it." Patient reports that he feels depressed due to being homeless. He reported feeling "suicidal" but did not have any plan or intent and other than using the word "suicidal", did not seem to have any actual ideation to harm himself. He denied hallucinations/ paranoia/ delusions. He has a history of multiple psychiatric admissions, but never follows up with treatment or medications and continues to abuse cocaine. PPHx: Multiple past admissions for "depression", cocaine and alcohol abuse. He reports suicide attempt by OD in 1991. Last discharged in January 2017 from [facility] on: Albuterol HFA [Ventolin HFA 90 mcg/actuation (8 g)] 1 puff INH RQ4 PRN #1 inhaler PRN Reason: Shortness Of Breath Gabapentin [Neurontin] 300 mg PO TID #90 cap metFORMIN [glucOPHAGE] 500 mg PO BIDCC #60 tab PARoxetine [Paxil] 20 mg PO QAM #30 tab traZODone [Desyrel] 100 mg PO HS #30 tab PMHx: Asthma, DM, current chest pain ALL: Fish/shellfish SHx: Homeless, chronic cocaine abuse, denies current alcohol abuse. MSE: A + O x 3, calm, irritable and evasive towards automobile service writer, denies hallucinations/delusions/paranoia, +depressed mood, affect- irritable, thought process- linear/coherent, chronic poor I/J re: cocaine abuse, fair impulse control, no suicidal plan or intent, no homicidal ideation Impression: 51 yo male w/ Cocaine Use Disorder and substance induced mood disorder; patient seems to be seeking inpatient psychiatric admission for secondary gain, patient is evasive and irritable w/ automobile service writer, w/o any suicidal plan or intent. -Would not recommend inpatient psychiatric admission at this time as patient is likely malingering and may still have cocaine in his possession in the hospital as he was evasive about what he did with the cocaine that he admitted bringing into the hospital -Patient does not follow-up with outpatient psychiatric treatment or medications , but if he is interested, he can be started on Trazodone 50 mg PO HS and referred to the [facility] -Would discontinue 1:1 unless medically indicated Past Patient History - Infectious Disease Hx of Infectious Diseases: None - Past Medical History & Family History Past Medical History?: Yes - Past Social History Smoking Status: Never Smoked - CARDIAC Hx Cardiac Disorders: No Hx Hypertension: No - PULMONARY Hx Respiratory Disorders: Yes Hx Asthma: Yes - NEUROLOGICAL Hx Neurological Disorder: No Hx Seizures: No - HEENT Hx HEENT Problems: No - RENAL Hx Chronic Kidney Disease: No - ENDOCRINE/METABOLIC Hx Endocrine Disorders: Yes Hx Diabetes Mellitus Type 2: Yes - HEMATOLOGICAL/ONCOLOGICAL Hx Blood Disorders: No Hx AIDS: No Hx Human Immunodeficiency Virus (HIV): No - INTEGUMENTARY Hx Dermatological Problems: No - MUSCULOSKELETAL/RHEUMATOLOGICAL Hx Musculoskeletal Disorders: No Hx Falls: No - GASTROINTESTINAL Hx Gastrointestinal Disorders: No - GENITOURINARY/GYNECOLOGICAL Hx Genitourinary Disorders: No Hx Sexually Transmitted Disorders: No - PSYCHIATRIC Hx Anxiety: Yes Hx Depression: Yes Hx Substance Use: Yes - SURGICAL HISTORY Hx Surgeries: No - ANESTHESIA Hx Anesthesia: No Meds Allergies/Adverse Reactions: Allergies Allergy/AdvReac Type Severity Reaction Status Date / Time FISH Allergy ANAPHYLAXIS Verified 05/05/17 19:35 Fish Containing Products Allergy ANAPHYLAXIS Verified 05/05/17 19:35 shellfish derived Allergy ANAPHYLAXIS Verified 05/05/17 19:35 seafood Allergy ANAPHYLAXIS Uncoded 05/05/17 19:35 - Medications Medications: Current Medications Albuterol (Ventolin Hfa 90 Mcg/Actuation (8 G)) 2 puff IH Q4H PRN PRN Reason: Shortness of Breath Glipizide (Glucotrol Xl) 5 mg PO BRK YONG Metformin HCl (Glucophage) 850 mg PO BID [facility] Results - Vital Signs Recent Vital Signs: Last Vital Signs Temp 97.6 F 05/12/17 08:04 Pulse 62 05/12/17 08:04 Resp 18 05/12/17 08:04 BP 116/61 05/12/17 08:04 Pulse Ox 96 05/12/17 08:04 - Labs Result Diagrams: 05/11/17 13:54 05/12/17 04:30 Labs: Laboratory Results - last 24 hr 05/11/17 05/11/17 05/11/17 13:54 13:54 23:05 WBC 6.4 RBC 4.88 Hgb 14.6 Hct 43.0 MCV 88.1 MCH 29.9 MCHC 34.0 RDW 13.3 Plt Count 215 MPV 8.4 Neut % (Auto) 73.7 Lymph % (Auto) 15.9 L [place] % (Auto) 9.4 Eos % (Auto) 0.3 Baso % (Auto) 0.7 Neut # 4.7 Lymph # 1.0 [place] # 0.6 Eos # 0.0 Baso # 0.0 Sodium 144 Potassium 3.4 L Chloride 104 Carbon Dioxide 27 Anion Gap 16 BUN 14 Creatinine 0.7 L Est GFR ( Amer) > 60 Est GFR (Non-Af Amer) > 60 Random Glucose 110 Calcium 9.4 Total Bilirubin 0.7 AST 35 ALT 56 Alkaline Phosphatase 71 Troponin I < 0.0120 < 0.0120 Total Protein 7.6 Albumin 4.5 Globulin 3.1 Albumin/Globulin Ratio 1.5 Urine Opiates Screen Urine Methadone Screen Ur Barbiturates Screen Ur Phencyclidine Scrn Ur Amphetamines Screen U Benzodiazepines Scrn U Oth Cocaine Metabols U Cannabinoids Screen Alcohol, Quantitative < 10 05/12/17 05/12/17 04:30 06:54 WBC RBC Hgb Hct MCV MCH MCHC RDW Plt Count MPV Neut % (Auto) Lymph % (Auto) [place] % (Auto) Eos % (Auto) Baso % (Auto) Neut # Lymph # [place] # Eos # Baso # Sodium 143 Potassium 3.6 Chloride 102 Carbon Dioxide 28 Anion Gap 16 BUN 16 Creatinine 0.9 Est GFR ( Amer) > 60 Est GFR (Non-Af Amer) > 60 Random Glucose 136 H Calcium 9.3 Total Bilirubin AST ALT Alkaline Phosphatase Troponin I < 0.0120 Total Protein Albumin Globulin Albumin/Globulin Ratio Urine Opiates Screen Negative Urine Methadone Screen Negative Ur Barbiturates Screen Negative Ur Phencyclidine Scrn Negative Ur Amphetamines Screen Negative U Benzodiazepines Scrn Negative U Oth Cocaine Metabols Positive H U Cannabinoids Screen Negative Alcohol, Quantitative
[2017-05-12] MEDS: GlipiZIDE 5 mg SR Tab PO SCH (08:52)
[2017-05-12] MEDS: Albuterol HFA 90 mcg/actuation (8 g) IH PRN ×3 (08:53→22:04)
--- NOTE | 2017-05-12 11:03 | CP.PCM.PN ---
Subjective - Date & Time of Evaluation Date of Evaluation: 05/12/17 Time of Evaluation: 11:00 - Subjective Subjective: - Patient seen and examined at bedside with Dr. Kimble. - Patient is doing much better. Denies any overnight events. Still is complaining of chest pain and is depressed. Cardiac enzymes and EKG are negatice. Psych has evaluated patient and is recommended follow up outpatient, they do not believe patient is a candidate for in patient psych admission. - Patient denies any SOB, palpatation. - Currently denies SI/H/I Objective - Vital Signs/Intake and Output Vital Signs (last 24 hours): Temp Pulse Resp BP Pulse Ox 97.6 F 62 18 116/61 96 05/12/17 08:04 05/12/17 09:00 05/12/17 08:04 05/12/17 08:04 05/12/17 08:04 - Medications Medications: Current Medications Albuterol (Ventolin Hfa 90 Mcg/Actuation (8 G)) 2 puff IH Q4H PRN PRN Reason: Shortness of Breath Last Admin: 05/12/17 08:53 Dose: 2 puff Glipizide (Glucotrol Xl) 5 mg PO BRK [facility] Last Admin: 05/12/17 08:52 Dose: 5 mg Metformin HCl (Glucophage) 850 mg PO BID [facility] Last Admin: 05/12/17 08:52 Dose: 850 mg - Labs Labs: 05/11/17 13:54 05/12/17 04:30 - Constitutional Appears: No Acute Distress - Head Exam Head Exam: ATRAUMATIC, NORMAL INSPECTION, NORMOCEPHALIC - Eye Exam Eye Exam: Normal appearance Pupil Exam: NORMAL ACCOMODATION - ENT Exam ENT Exam: Mucous Membranes Moist - Cardiovascular Exam Cardiovascular Exam: REGULAR RHYTHM, +S1, +S2 Additional comments: Tender on palpation over upper left side of the chest - GI/Abdominal Exam GI & Abdominal Exam: Soft, Normal Bowel Sounds. absent: Tenderness - Extremities Exam Extremities Exam: Normal Inspection - Neurological Exam Neurological Exam: Alert, Awake, Oriented x3 - Skin Skin Exam: Normal Color, Warm Assessment and Plan - Assessment and Plan (Free Text) Assessment: 1) Chest pain (most likely musculoskeletal) - Troponin x 3 negative - vital signs stable - EKG : WNL - Awaiting cardiac consult for clearance - Motrin 600 mg Q6 2) Depression - psych consult appreciated - Not candidate for inpatient psych as per consult - F/U with [facility] outpatient
--- NOTE | 2017-05-12 15:21 | CP.PCM.PCO ---
Physician Communication Note - Physician Communication Note Physician Communication Note: paged by nurse for chest pain Progress Note - Review of Symptoms Subjective: Paged by nurse for chest pain. Vitals were stable. EKG ordered. Chest pain was reproducible on palpation. Patient states that the pain is at the same level he has had this morning. Ordered Motrin, will reassess.
--- NOTE | 2017-05-12 17:52 | CP.PCM.HP ---
History of Present Illness - History of Present Illness History of Present Illness: 51 YO M was admitted for substernal chest pain after snorting cocaine. Patient is not specific on what other medications he took, but states he is depressed. Patient is being admitted for rule out ACS. PMH: Anxiety, Asthma, Depression PSH: none FH: DM Allergy: Fish S/H: Cocaine Present on Admission - Present on Admission Any Indicators Present on Admission: No Past Patient History - Infectious Disease Hx of Infectious Diseases: None - Past Medical History & Family History Past Medical History?: Yes - Past Social History Smoking Status: Never Smoked - CARDIAC Hx Cardiac Disorders: No Hx Hypertension: No - PULMONARY Hx Respiratory Disorders: Yes Hx Asthma: Yes - NEUROLOGICAL Hx Neurological Disorder: No Hx Seizures: No - HEENT Hx HEENT Problems: No - RENAL Hx Chronic Kidney Disease: No - ENDOCRINE/METABOLIC Hx Endocrine Disorders: Yes Hx Diabetes Mellitus Type 2: Yes - HEMATOLOGICAL/ONCOLOGICAL Hx Blood Disorders: No Hx AIDS: No Hx Human Immunodeficiency Virus (HIV): No - INTEGUMENTARY Hx Dermatological Problems: No - MUSCULOSKELETAL/RHEUMATOLOGICAL Hx Musculoskeletal Disorders: No Hx Falls: No - GASTROINTESTINAL Hx Gastrointestinal Disorders: No - GENITOURINARY/GYNECOLOGICAL Hx Genitourinary Disorders: No Hx Sexually Transmitted Disorders: No - PSYCHIATRIC Hx Anxiety: Yes Hx Depression: Yes Hx Substance Use: Yes - SURGICAL HISTORY Hx Surgeries: No - ANESTHESIA Hx Anesthesia: No Meds Allergies/Adverse Reactions: Allergies Allergy/AdvReac Type Severity Reaction Status Date / Time FISH Allergy ANAPHYLAXIS Verified 05/05/17 19:35 Fish Containing Products Allergy ANAPHYLAXIS Verified 05/05/17 19:35 shellfish derived Allergy ANAPHYLAXIS Verified 05/05/17 19:35 seafood Allergy ANAPHYLAXIS Uncoded 05/05/17 19:35 Physical Exam - Constitutional Appears: No Acute Distress - Head Exam Head Exam: NORMAL INSPECTION - Eye Exam Eye Exam: Normal appearance - ENT Exam ENT Exam: Mucous Membranes Moist, Normal Exam - Respiratory Exam Respiratory Exam: Clear to Auscultation Bilateral, NORMAL BREATHING PATTERN - Cardiovascular Exam Cardiovascular Exam: REGULAR RHYTHM, +S1, +S2 Additional comments: Tender on upper left portion of chest reproducible - Extremities Exam Extremities exam: Positive for: normal inspection. Negative for: calf tenderness - Neurological Exam Neurological exam: CN II-XII Intact, Normal Gait, Oriented x3 - Skin Skin Exam: Normal Color, Warm Results - Vital Signs Recent Vital Signs: Last Vital Signs Temp 98.3 F 05/12/17 15:31 Pulse 69 05/12/17 15:31 Resp 20 05/12/17 15:31 BP 132/84 05/12/17 15:31 Pulse Ox 95 05/12/17 15:31 - Labs Result Diagrams: 05/11/17 13:54 05/12/17 04:30 Labs: Laboratory Results - last 24 hr 05/11/17 05/12/17 05/12/17 23:05 04:30 06:54 Sodium 143 Potassium 3.6 Chloride 102 Carbon Dioxide 28 Anion Gap 16 BUN 16 Creatinine 0.9 Est GFR ( Amer) > 60 Est GFR (Non-Af Amer) > 60 Random Glucose 136 H Calcium 9.3 Troponin I < 0.0120 < 0.0120 Urine Opiates Screen Negative Urine Methadone Screen Negative Ur Barbiturates Screen Negative Ur Phencyclidine Scrn Negative Ur Amphetamines Screen Negative U Benzodiazepines Scrn Negative U Oth Cocaine Metabols Positive H U Cannabinoids Screen Negative Assessment & Plan - Assessment and Plan (Free Text) Assessment: 1) Chest pain (most likely musculoskeltal) - Troponin x 3 negative - vital signs stable - EKG : WNL - Awaiting cardiac consult for clearance - motrin 600 mg Q6 2) Depression - Not canidate for inpatient psych as per consult - F/U with [facility] outpatient - Date & Time Date: 05/12/17 Time: 06:00
--- NOTE | 2017-05-13 01:11 | CARD ---
APPROVED REPORT EKG Measurement Heart [id number] <Conclusion> Normal sinus rhythm Normal ECG
--- NOTE | 2017-05-13 01:24 | CARD ---
APPROVED REPORT EKG Measurement Heart [id number] <Conclusion> Normal sinus rhythm Minimal voltage criteria for LVH, may be normal variant Borderline ECG
[2017-05-13] MEDS: GlipiZIDE 5 mg SR Tab PO SCH (08:52)
--- NOTE | 2017-05-13 09:42 | CP.PCM.CON ---
History of Present Illness - History of Present Illness History of Present Illness: This 51-year-old man who has had numerous visits to the emergency room over the last 12 months for symptoms of chest pain, shortness of breath and depression was hospitalized following a visit to the emergency room for chest discomfort which occurred at rest and was not accompanied by any radiation to his arm or jaw or perspiration or nausea. An electrocardiogram recorded in the emergency room shows sinus rhythm with no ischemic abnormalities. The patient is a diabetic and a smoker. There is a history of cocaine use as well. There is no prior myocardial infarction or symptoms of congestive cardiac failure. He has taken his medications erratically. He has had numerous hospitalizations for psychiatric illnesses. At the time of this examination the patient was resting comfortably in no distress. He was alert and awake. He was breathing comfortably at 16-18 breaths per minute and could carry on a conversation. His heart rate was 74 bpm and regular. His blood pressure was 136/74 mmHg. His jugular venous pressure was not elevated. There was no edema over his lower extremities. The pedal pulses were well felt. There were no carotid bruits. The apex was not palpable. The first and second heart sounds were normal. There was no murmur and no gallop. There were no rales. His abdomen was soft and liver and spleen are not palpable. His electro-cardiogram showed sinus rhythm with a normal EKG pattern no evidence of ischemic ST-T abnormalities were detected QRS morphology was suggestive of a borderline finding of left ventricular hypertrophy. Lab data was noted. Troponins were negative for any evidence of myocyte injury. Impression: Atypical chest pain with no evidence of acute coronary syndrome. The patient may be allowed to return home and be taken care of as an outpatient. In the meantime he should continue to take 81 mg off aspirin given the fact that he has a history of diabetes and a smoker and is a 51-year-old man. Past Patient History - Infectious Disease Hx of Infectious Diseases: None - Past Medical History & Family History Past Medical History?: Yes - Past Social History Smoking Status: Never Smoked - CARDIAC Hx Cardiac Disorders: No Hx Hypertension: No - PULMONARY Hx Respiratory Disorders: Yes Hx Asthma: Yes - NEUROLOGICAL Hx Neurological Disorder: No Hx Seizures: No - HEENT Hx HEENT Problems: No - RENAL Hx Chronic Kidney Disease: No - ENDOCRINE/METABOLIC Hx Endocrine Disorders: Yes Hx Diabetes Mellitus Type 2: Yes - HEMATOLOGICAL/ONCOLOGICAL Hx Blood Disorders: No Hx AIDS: No Hx Human Immunodeficiency Virus (HIV): No - INTEGUMENTARY Hx Dermatological Problems: No - MUSCULOSKELETAL/RHEUMATOLOGICAL Hx Musculoskeletal Disorders: No Hx Falls: No - GASTROINTESTINAL Hx Gastrointestinal Disorders: No - GENITOURINARY/GYNECOLOGICAL Hx Genitourinary Disorders: No Hx Sexually Transmitted Disorders: No - PSYCHIATRIC Hx Anxiety: Yes Hx Depression: Yes Hx Substance Use: Yes - SURGICAL HISTORY Hx Surgeries: No - ANESTHESIA Hx Anesthesia: No Meds Allergies/Adverse Reactions: Allergies Allergy/AdvReac Type Severity Reaction Status Date / Time FISH Allergy ANAPHYLAXIS Verified 05/05/17 19:35 Fish Containing Products Allergy ANAPHYLAXIS Verified 05/05/17 19:35 shellfish derived Allergy ANAPHYLAXIS Verified 05/05/17 19:35 seafood Allergy ANAPHYLAXIS Uncoded 05/05/17 19:35 - Medications Medications: Current Medications Albuterol (Ventolin Hfa 90 Mcg/Actuation (8 G)) 2 puff IH Q4H PRN PRN Reason: Shortness of Breath Last Admin: 05/12/17 22:04 Dose: 2 puff Glipizide (Glucotrol Xl) 5 mg PO BRK [facility] Last Admin: 05/13/17 08:52 Dose: 5 mg Ibuprofen (Motrin Tab) 600 mg PO Q6 PRN PRN Reason: Pain, Mild (1-3) Last Admin: 05/13/17 08:54 Dose: 600 mg Metformin HCl (Glucophage) 850 mg PO BID [facility] Last Admin: 05/13/17 08:52 Dose: 850 mg Results - Vital Signs Recent Vital Signs: Last Vital Signs Temp 97.3 F L 05/13/17 08:00 Pulse 56 L 05/13/17 08:00 Resp 18 05/13/17 08:00 BP 136/88 05/13/17 08:00 Pulse Ox 99 05/13/17 08:00 - Labs Result Diagrams: 05/11/17 13:54 05/12/17 04:30
[2017-05-13 12:21] VITALS: BP 119/80; PULSE 64; RESP 20; TEMP 98.4; O2SAT 97
[2017-05-13] MEDS: Albuterol HFA 90 mcg/actuation (8 g) IH PRN (12:38)
--- NOTE | 2017-05-13 13:45 | CP.PCM.DIS ---
Provider - Provider Date of Admission: 05/11/17 14:31 Attending physician: Tommie Esteban MD Time Spent in preparation of Discharge (in minutes): 30 Hospital Course - Lab Results Lab Results: Most Recent Lab Values WBC 6.4 K/uL (4.8-10.8) 05/11/17 13:54 RBC 4.88 Mil/uL (4.40-5.90) 05/11/17 13:54 Hgb 14.6 g/dL (12.0-18.0) 05/11/17 13:54 Hct 43.0 % (35.0-51.0) 05/11/17 13:54 MCV 88.1 fl (80.0-94.0) 05/11/17 13:54 MCH 29.9 pg (27.0-31.0) 05/11/17 13:54 MCHC 34.0 g/dL (33.0-37.0) 05/11/17 13:54 RDW 13.3 % (11.5-14.5) 05/11/17 13:54 Plt Count 215 K/uL (130-400) 05/11/17 13:54 MPV 8.4 fl (7.2-11.7) 05/11/17 13:54 Neut % (Auto) 73.7 % (50.0-75.0) 05/11/17 13:54 Lymph % (Auto) 15.9 % (20.0-40.0) L 05/11/17 13:54 [place] % (Auto) 9.4 % (0.0-10.0) 05/11/17 13:54 Eos % (Auto) 0.3 % (0.0-4.0) 05/11/17 13:54 Baso % (Auto) 0.7 % (0.0-2.0) 05/11/17 13:54 Neut # 4.7 K/uL (1.8-7.0) 05/11/17 13:54 Lymph # 1.0 K/uL (1.0-4.3) 05/11/17 13:54 [place] # 0.6 K/uL (0.0-0.8) 05/11/17 13:54 Eos # 0.0 K/uL (0.0-0.7) 05/11/17 13:54 Baso # 0.0 K/uL (0.0-0.2) 05/11/17 13:54 Sodium 143 mmol/l (132-148) 05/12/17 04:30 Potassium 3.6 MMOL/L (3.6-5.0) 05/12/17 04:30 Chloride 102 mmol/L (98-107) 05/12/17 04:30 Carbon Dioxide 28 mmol/L (22-30) 05/12/17 04:30 Anion Gap 16 (10-20) 05/12/17 04:30 BUN 16 mg/dl (9-20) 05/12/17 04:30 Creatinine 0.9 mg/dL (0.8-1.5) 05/12/17 04:30 Est GFR ( Amer) > 60 05/12/17 04:30 Est GFR (Non-Af Amer) > 60 05/12/17 04:30 Random Glucose 136 mg/dL (75-110) H 05/12/17 04:30 Calcium 9.3 mg/dL (8.4-10.2) 05/12/17 04:30 Total Bilirubin 0.7 mg/dl (0.2-1.3) 05/11/17 13:54 AST 35 U/L (17-59) 05/11/17 13:54 ALT 56 U/L (21-72) 05/11/17 13:54 Alkaline Phosphatase 71 U/L (38-126) 05/11/17 13:54 Troponin I < 0.0120 ng/mL (0.00-0.120) 05/12/17 04:30 Total Protein 7.6 G/DL (6.3-8.2) 05/11/17 13:54 Albumin 4.5 g/dL (3.5-5.0) 05/11/17 13:54 Globulin 3.1 gm/dL (2.2-3.9) 05/11/17 13:54 Albumin/Globulin Ratio 1.5 (1.0-2.1) 05/11/17 13:54 Urine Opiates Screen Negative (NEGATIVE) 05/12/17 06:54 Urine Methadone Screen Negative (NEGATIVE) 05/12/17 06:54 Ur Barbiturates Screen Negative (NEGATIVE) 05/12/17 06:54 Ur Phencyclidine Scrn Negative (NEGATIVE) 05/12/17 06:54 Ur Amphetamines Screen Negative (NEGATIVE) 05/12/17 06:54 U Benzodiazepines Scrn Negative (NEGATIVE) 05/12/17 06:54 U Oth Cocaine Metabols Positive (NEGATIVE) H 05/12/17 06:54 U Cannabinoids Screen Negative (NEGATIVE) 05/12/17 06:54 Alcohol, Quantitative < 10 mg/dl (0-10) 05/11/17 13:54 - Hospital Course Hospital Course: 51 YO M who presented to the hospital for chest pain after using cocaine as been worked up for acute coronary syndrome. All test were negative. EKG was WNL. Troponin x3 negative. Cleared by cardiology. Advised to take asprin 81 mg and follow up with PMD outpatient in 2-3 days. Patient was also seen by [facility] because he stated he is depressed. Currently denies SI/HI. Discharge Exam - Head Exam Head Exam: ATRAUMATIC, NORMAL INSPECTION, NORMOCEPHALIC - Eye Exam Eye Exam: Normal appearance - Respiratory Exam Respiratory Exam: Clear to PA & Lateral. absent: Rales, Rhonchi - Cardiovascular Exam Cardiovascular Exam: REGULAR RHYTHM, +S1, +S2 - GI/Abdominal Exam GI & Abdominal Exam: Normal Bowel Sounds - Neurological Exam Neurological exam: Alert, CN II-XII Intact, Oriented x3 - Skin Skin Exam: Normal Color, Warm Discharge Plan - Discharge Medications Prescriptions: Aspirin [Adult Low Dose Aspirin EC] 81 mg PO DAILY #30 tablet.dr - Follow Up Plan Condition: FAIR Disposition: HOME/ ROUTINE Instructions: Chest Pain (DC), Cocaine Abuse (DC) Additional Instructions: patient cleared for discharge to home today by Dr. Lori Manzano Rx for ASA provided f/u with pmd in 1 week Referrals: [facility] [place] [Outside]
--- NOTE | 2017-05-14 10:29 | CARD ---
APPROVED REPORT EKG Measurement Heart [id number] <Conclusion> Normal sinus rhythm Normal ECG
== END 2017-05-13 14:06 | disposition home or self-care (01) ==
LOC: H.ER 12:53 → H.ERHOLD 14:31 → H.TEL 17:30 → INTOOBSV 05-12 15:15 → OBSVTOIN 05-12 15:15
PROVIDERS: ADMIT Family Medicine; ATTEND Family Medicine
DX: R07.89 Other chest pain (principal); J44.9 Chronic obstructive pulmonary disease, unspecified; F32.9 Major depressive disorder, single episode, unspecified; F41.9 Anxiety disorder, unspecified; F14.10 Cocaine abuse, uncomplicated; E11.9 Type 2 diabetes mellitus without complications; Z79.84 Long term (current) use of oral hypoglycemic drugs; Z59.0 Homelessness
CPT/HCPCS: 36415; 71020; 80048; 80053; 80320; 80324; 80345; 80346; 80349; 80353; 80358; 80361; 83992; 84484; 85025; 93005; 99285; G0378

== ENCOUNTER 2017-05-19 06:08 | Emergency (ER) | payer OTHER ==
[2017-05-19 06:08] VITALS: BMI 35.1
[2017-05-19 06:19] VITALS: TEMP 98.1; O2SAT 98
[2017-05-19] MEDS ORDERED: Albuterol-Ipratrop 3 mg / 0.5 (3 ml) UD INH STA ×4 (06:24→07:19)
[2017-05-19] MEDS ORDERED: Albuterol-Ipratrop 3 mg / 0.5 (3 ml) UD ONE (06:24)
--- NOTE | 2017-05-19 06:33 | ED PDOC ---
HPI: SOB/CHF/COPD Time Seen by Provider: 05/19/17 06:10 Chief Complaint (Nursing): Shortness Of Breath Chief Complaint (Provider): Shortness of Breath History Per: Patient History/Exam Limitations: no limitations Onset/Duration Of Symptoms: Days (1) Current Symptoms Are (Timing): Still Present Current Respiratory Medications: Albuterol Severity: Mild Associated Symptoms: denies: Fever, Chills, Productive Cough Additional History Per: Patient Additional Complaint(s): 51 y/o male with a hx of depression, diabetes, and asthma, c/o SOB for 1 day. Patient notes running out of his albuterol medication at home. Denies fever, chills, cough, or any other complaints. Physician Patient Turnover - . Patient Signed Over To: Marissa Kirkland Handoff Comments: 07:00. Pending lab work ups and reeval. Past Medical History Reviewed: Historical Data, Nursing Documentation, Vital Signs Vital Signs: Last Vital Signs Temp 98.1 F 05/19/17 06:17 Pulse 82 05/19/17 06:17 Resp 20 05/19/17 06:17 BP 135/87 05/19/17 06:17 Pulse Ox 98 05/19/17 06:54 - Medical History PMH: Anxiety, Asthma, Bronchitis, COPD, Depression, Diabetes, Gastritis Denies: HIV, HTN, Chronic Kidney Disease, Seizures, Sexually Transmitted Disease - Surgical History Surgical History: No Surg Hx - Family History Family History: States: Diabetes - Social History Current smoker - smoking cessation education provided: Yes SMOKER/PACKS PER DAY:: 1 (1 pack a day) Drugs: Denies - Immunization History Hx Tetanus Toxoid Vaccination: No Hx Influenza Vaccination: No Hx Pneumococcal Vaccination: No - Home Medications Home Medications: Ambulatory Orders Medication Instructions Recorded Albuterol HFA [Ventolin HFA 90 2 puff IH Q4H PRN 05/11/17 mcg/actuation (8 g)] Glimepiride [amaRYL] 2 mg PO DAILY 05/11/17 metFORMIN [glucOPHAGE] 850 mg PO BID 05/11/17 Aspirin [Adult Low Dose Aspirin EC] 81 mg PO DAILY #30 tablet. 05/13/17 - Allergies Allergies/Adverse Reactions: Allergies Allergy/AdvReac Type Severity Reaction Status Date / Time FISH Allergy ANAPHYLAXIS Verified 05/05/17 19:35 Fish Containing Products Allergy ANAPHYLAXIS Verified 05/05/17 19:35 shellfish derived Allergy ANAPHYLAXIS Verified 05/05/17 19:35 seafood Allergy ANAPHYLAXIS Uncoded 05/05/17 19:35 Review of Systems ROS Statement: Except As Marked, All Systems Reviewed And Found Negative Constitutional: Negative for: Fever, Chills Respiratory: Positive for: Shortness of Breath. Negative for: Cough Physical Exam - Reviewed Nursing Documentation Reviewed: Yes Vital Signs Reviewed: Yes - Physical Exam Appears: Positive for: Well, Non-toxic, No Acute Distress Head Exam: Positive for: ATRAUMATIC, NORMAL INSPECTION, NORMOCEPHALIC Skin: Positive for: Normal Color, Warm, DRY Cardiovascular/Chest: Positive for: Regular Rate, Rhythm. Negative for: Murmur Respiratory: Positive for: Wheezing (Diffuse ), Other (Audiable wheezing, tripoding). Negative for: Rales, Rhonchi Gastrointestinal/Abdominal: Positive for: Soft. Negative for: Tenderness Extremity: Positive for: Normal ROM Neurologic/Psych: Positive for: Alert, Oriented - ECG O2 Sat by Pulse Oximetry: 98 (RA) Pulse Ox Interpretation: Normal Medical Decision Making Medical Decision Making: Impression: * SOB for 1 day. Plans: * Blood labs * Albuterol * Prednisolone DDx: asthma exacerbation 07:00. Pending lab work up. Scribe Attestation: Documented by Armond toney, acting as a scribe for Melania Crook. Provider Scribe Attestation: All medical record entries made by the Scribe were at my direction and personally dictated by me. I have reviewed the chart and agree that the record accurately reflects my personal performance of the history, physical exam, medical decision making, and the department course for this patient. I have also personally directed, reviewed, and agree with the discharge instructions and disposition. Disposition - Clinical Impression Clinical Impression: Asthma - Patient ED Disposition Is Patient to be Admitted: No Counseled Patient/Family Regarding: Studies Performed, Diagnosis - Disposition Disposition: Transfer of Care Disposition Time: 07:00 Condition: IMPROVED Forms: [employer] (Telugu) Patient Signed Over To: Marissa Kirkland Handoff Comments: follow up labs and reevaluate
[2017-05-19 06:52] LABS: BASO % 0.7 % (0.0-2.0); EOS # 0.1 K/uL (0.0-0.7); EOS % 1.2 % (0.0-4.0); HEMATOCRIT 45.7 % (35.0-51.0); LYMPH # 1.4 K/uL (1.0-4.3); MEAN CELL VOLUME 89.4 fl (80.0-94.0); MEAN CORPUSCULAR HEMOGLOBIN 29.8 pg (27.0-31.0); MEAN CORPUSCULAR HGB CONC 33.4 g/dL (33.0-37.0); MEAN PLATELET VOLUME 8.5 fl (7.2-11.7); MONO # 0.7 K/uL (0.0-0.8); MONO % 9.7 % (0.0-10.0); NEUT % 69.4 % (50.0-75.0); NRBC % 0.1 % (0.0-0.0); RED CELL DISTRIBUTION WIDTH 13.3 % (11.5-14.5); WHITE BLOOD COUNT 7.2 K/uL (4.8-10.8)
[2017-05-19 07:05] LABS: BLOOD UREA NITROGEN 13 mg/dl (9-20); CALCIUM 9.3 mg/dL (8.4-10.2); CARBON DIOXIDE 24 mmol/L (22-30); CHLORIDE 105 mmol/L (98-107); GFR AFRICAN-AMERICAN > 60; GLUCOSE,RANDOM 101 mg/dL (75-110); POTASSIUM 4.2 MMOL/L (3.6-5.0); SODIUM 142 mmol/l (132-148)
--- NOTE | 2017-05-19 07:45 | ED PDOC ---
- Laboratory Results Result Diagrams: 05/19/17 06:30 05/19/17 06:30 - ECG O2 Sat by Pulse Oximetry: 98 (RA) Medical Decision Making Medical Decision Makin Patient was transferred to tx by Dr. Crook. -On my initial assessment, patient has had 3 duonebs and steroids and is reporting some improvement of symptoms. 8:24AM Labs grossly normal. Patient was monitored in ED for 1.5 hours and given 2 additional duonebs. Patient continues to have normal O2 saturation. Wheezing resolved. Normal vitals with no tachypnea and ambulating around the ED without issue. Patient feels better. He reports chronically low peak flow. He reports that he needs albuterol pump refill. He is requesting discharge. Disposition - Clinical Impression Clinical Impression: Asthma - POA Present On Arrival: None - Disposition Disposition: Routine/Home Disposition Time: 08:24 Condition: IMPROVED Additional Instructions: Stop smoking. Take full course of steroids. Use albuterol as needed. Return immediately with any worsening symptoms. Follow-up with PMD within 2 days. Prescriptions: Albuterol HFA [Ventolin HFA 90 mcg/actuation (8 g)] 2 puff IH Q4 #1 puff Prednisone 50 mg PO DAILY #3 tablet Instructions: Asthma (ED), COPD (Chronic Obstructive Pulmonary Disease) (ED) Forms: [employer] (Yi)
[2017-05-19] MEDS ORDERED: Albuterol-Ipratrop 3 mg / 0.5 (3 ml) UD INH ONE (08:00)
[2017-05-19 08:35] VITALS: BP 130/78; PULSE 79; RESP 19
== END 2017-05-19 08:36 | disposition home or self-care (01) ==
LOC: H.ER 06:08
DX: J44.1 Chronic obstructive pulmonary disease with (acute) exacerbation (principal); J45.909 Unspecified asthma, uncomplicated
CPT/HCPCS: 80048; 82948; 85025; 94640; 96374; 99284; J2930

== ENCOUNTER 2017-07-02 12:07 | Emergency (ER) | payer OTHER, SELFPAY ==
[2017-07-02] MEDS ORDERED: Albuterol-Ipratrop 3 mg / 0.5 (3 ml) UD IH STA ×2 (12:24→12:28)
[2017-07-02 12:27] VITALS: BP 126/75; PULSE 68; RESP 18; TEMP 97; O2SAT 98
--- NOTE | 2017-07-02 12:28 | ED PDOC ---
HPI: SOB/CHF/COPD Time Seen by Provider: 07/02/17 12:15 Chief Complaint (Nursing): Shortness Of Breath History Per: Patient Onset/Duration Of Symptoms: Days (2) Current Symptoms Are (Timing): Still Present Severity: Mild Associated Symptoms: Productive Cough. denies: Fever, Chest Pain Additional Complaint(s): SOB, wheezing and cough productive tinsley sputum. Denies fever or chest pain. Past Medical History Vital Signs: Last Vital Signs Temp 97.0 F L 07/02/17 12:25 Pulse 68 07/02/17 12:25 Resp 18 07/02/17 12:27 BP 126/75 07/02/17 12:25 Pulse Ox 98 07/02/17 12:27 - Medical History PMH: Anxiety, Asthma, Bronchitis, COPD, Depression, Diabetes, Fractures (Left foot fracture), Gastritis Denies: HIV, HTN, Chronic Kidney Disease, Seizures, Sexually Transmitted Disease - Family History Family History: States: Diabetes - Immunization History Hx Tetanus Toxoid Vaccination: No Hx Influenza Vaccination: No Hx Pneumococcal Vaccination: No - Home Medications Home Medications: Ambulatory Orders Medication Instructions Recorded Albuterol HFA [Ventolin HFA 90 2 puff IH Q4H PRN 05/11/17 mcg/actuation (8 g)] Glimepiride [amaRYL] 2 mg PO DAILY 05/11/17 metFORMIN [glucOPHAGE] 850 mg PO BID 05/11/17 Aspirin [Adult Low Dose Aspirin EC] 81 mg PO DAILY #30 tablet. 05/13/17 Albuterol HFA [Ventolin HFA 90 2 puff IH Q4 #1 puff 05/19/17 mcg/actuation (8 g)] Prednisone 50 mg PO DAILY #3 tablet 05/19/17 Albuterol HFA [Ventolin HFA 90 2 puff IH Q4H PRN #1 puff 06/05/17 mcg/actuation (8 g)] predniSONE [predniSONE Tab] 40 mg PO DAILY #10 tab 06/05/17 Albuterol HFA [Ventolin HFA 90 1 - 2 puff IH Q4H PRN #1 bottle 06/16/17 mcg/actuation (8 g)] Albuterol HFA [Ventolin HFA 90 2 puff IH Q4H #1 puff 07/02/17 mcg/actuation (8 g)] Azithromycin [Zithromax] 250 mg PO DAILY #6 tab 07/02/17 predniSONE [predniSONE Tab] 10 mg PO TID #15 tab 07/02/17 - Allergies Allergies/Adverse Reactions: Allergies Allergy/AdvReac Type Severity Reaction Status Date / Time FISH Allergy ANAPHYLAXIS Verified 06/16/17 12:54 Fish Containing Products Allergy ANAPHYLAXIS Verified 06/16/17 12:54 shellfish derived Allergy ANAPHYLAXIS Verified 06/16/17 12:54 seafood Allergy ANAPHYLAXIS Uncoded 06/16/17 12:54 Review of Systems ROS Statement: Except As Marked, All Systems Reviewed And Found Negative Respiratory: Positive for: Cough, Wheezing Physical Exam - Reviewed Nursing Documentation Reviewed: Yes Vital Signs Reviewed: Yes - Physical Exam Appears: Positive for: Non-toxic, No Acute Distress Head Exam: Positive for: ATRAUMATIC, NORMAL INSPECTION, NORMOCEPHALIC Skin: Positive for: Normal Color, Warm, DRY Eye Exam: Positive for: EOMI, Normal appearance, PERRL ENT: Positive for: Normal ENT Inspection Neck: Positive for: Normal, Painless ROM Cardiovascular/Chest: Positive for: Regular Rate, Rhythm Respiratory: Positive for: Rhonchi, Wheezing. Negative for: Respiratory Distress Gastrointestinal/Abdominal: Positive for: Normal Exam, Bowel Sounds, Soft Back: Positive for: Normal Inspection Extremity: Positive for: Normal ROM Neurologic/Psych: Positive for: Alert, Oriented Disposition - Clinical Impression Clinical Impression: Asthma exacerbation, Bronchitis - Patient ED Disposition Is Patient to be Admitted: No Counseled Patient/Family Regarding: Studies Performed, Diagnosis, Need For Followup, Rx Given - Disposition Referrals: [facility] [Outside] Disposition: Routine/Home Disposition Time: 12:44 Condition: FAIR Prescriptions: Albuterol HFA [Ventolin HFA 90 mcg/actuation (8 g)] 2 puff IH Q4H #1 puff Azithromycin [Zithromax] 250 mg PO DAILY #6 tab predniSONE [predniSONE Tab] 10 mg PO TID #15 tab Instructions: Acute Bronchitis (ED), Bronchospasm (ED) Forms: [employer] (Chadian)
[2017-07-02] MEDS ORDERED: Albuterol-Ipratrop 3 mg / 0.5 (3 ml) UD ONE (12:37)
--- NOTE | 2017-07-02 13:28 | RAD ---
HISTORY: cough COMPARISON: 06/16/2017 TECHNIQUE: Chest PA and lateral FINDINGS: LUNGS: No focal alveolar infiltrate is seen. Minor interstitial changes are noted which may suggest minor bronchitis. Low lung volumes are noted, unchanged. PLEURA: No significant pleural effusion identified. No pneumothorax apparent. CARDIOVASCULAR: Normal. OSSEOUS STRUCTURES: No significant abnormalities. VISUALIZED UPPER ABDOMEN: Normal. OTHER FINDINGS: None. IMPRESSION: No focal infiltrate.
== END 2017-07-02 13:26 | disposition home or self-care (01) ==
LOC: H.ER 12:07
DX: J45.901 Unspecified asthma with (acute) exacerbation (principal); E11.9 Type 2 diabetes mellitus without complications; F32.9 Major depressive disorder, single episode, unspecified; F41.9 Anxiety disorder, unspecified; J44.9 Chronic obstructive pulmonary disease, unspecified; Z79.82 Long term (current) use of aspirin; Z79.84 Long term (current) use of oral hypoglycemic drugs

== ENCOUNTER 2017-08-22 02:47 | Emergency (ER) | payer MEDICAID, OTHER ==
[2017-08-22 03:07] VITALS: BMI 35.7
[2017-08-22 03:09] VITALS: BP 132/70; PULSE 90; RESP 16; TEMP 98.2
[2017-08-22] MEDS ORDERED: Albuterol-Ipratrop 3 mg / 0.5 (3 ml) UD INH STA ×3 (03:11→03:12)
[2017-08-22] MEDS ORDERED: Magnesium Sulfate 2 gm/50 ml 2 GM/50 ML BAG IV STA (03:11)
[2017-08-22] MEDS ORDERED: Magnesium Sulfate 2 gm/50 ml 2 GM/50 ML BAG ONE (03:21)
--- NOTE | 2017-08-22 03:30 | ED PDOC ---
HPI: SOB/CHF/COPD Time Seen by Provider: 08/22/17 03:01 Chief Complaint (Nursing): Respiratory Distress Chief Complaint (Provider): Shortness of Breath History Per: Patient History/Exam Limitations: no limitations Onset/Duration Of Symptoms: Persistent Current Symptoms Are (Timing): Still Present Additional Complaint(s): 51 year old male presents to ED with complaints of SOB and wheezing and has a past medical history of asthma, COPD, cocaine abuse, and depression. Patient is also known to be homeless. Notes that his albuterol pump did not help mitigate symptoms. (+) cough. PCP: None Past Medical History Reviewed: Historical Data, Nursing Documentation, Vital Signs Vital Signs: Last Vital Signs Temp 98.2 F 08/22/17 03:07 Pulse 90 08/22/17 03:07 Resp 16 08/22/17 04:01 BP 132/70 08/22/17 03:07 Pulse Ox 96 08/22/17 04:06 - Medical History PMH: Anxiety, Asthma, Bronchitis, COPD, Depression, Diabetes, Fractures (Left foot fracture), Gastritis Denies: Hepatitis, HIV, HTN, Chronic Kidney Disease, Seizures, Sexually Transmitted Disease - Family History Family History: States: Diabetes - Living Arrangements Living Arrangements: Other (Homeless) - Social History Current smoker - smoking cessation education provided: Yes (2 cigarettes a day) Drugs: Cocaine - Immunization History Hx Tetanus Toxoid Vaccination: No Hx Influenza Vaccination: No Hx Pneumococcal Vaccination: No - Home Medications Home Medications: Ambulatory Orders Medication Instructions Recorded metFORMIN [glucOPHAGE] 850 mg PO BID 05/11/17 Albuterol HFA [Ventolin HFA 90 2 puff IH Q4H #1 puff 07/02/17 mcg/actuation (8 g)] PARoxetine [Paxil] 20 mg PO QAM #30 tab 07/15/17 QUEtiapine [Seroquel] 50 mg PO HS #30 tab 07/15/17 metFORMIN [glucOPHAGE] 850 mg PO BID #60 tab 07/15/17 traZODone [Desyrel] 50 mg PO HS #30 tab 07/15/17 Albuterol HFA [Ventolin HFA 90 1 - 2 puff IH Q6 PRN #1 inhaler 08/22/17 mcg/actuation (8 g)] predniSONE [predniSONE Tab] 60 mg PO QAM #12 tab 08/22/17 - Allergies Allergies/Adverse Reactions: Allergies Allergy/AdvReac Type Severity Reaction Status Date / Time FISH Allergy ANAPHYLAXIS Verified 08/22/17 03:06 Fish Containing Products Allergy ANAPHYLAXIS Verified 08/22/17 03:06 shellfish derived Allergy ANAPHYLAXIS Verified 08/22/17 03:06 seafood Allergy ANAPHYLAXIS Uncoded 08/22/17 03:06 Curb-65 Severity Score - CURB-65 Severity Score Confusion: No Curb-65 Score: 0 Percentage 30-day mortality: 0.6% Review of Systems ROS Statement: Except As Marked, All Systems Reviewed And Found Negative Respiratory: Positive for: Cough, Shortness of Breath, Wheezing Physical Exam - Reviewed Nursing Documentation Reviewed: Yes Vital Signs Reviewed: Yes - Physical Exam Appears: Positive for: Non-toxic, No Acute Distress Skin: Positive for: Normal Color, Warm, Dry Eye Exam: Positive for: Normal appearance ENT: Positive for: Normal ENT Inspection Neck: Positive for: Normal, Painless ROM Cardiovascular/Chest: Positive for: Regular Rate, Rhythm Respiratory: Positive for: Decreased Breath Sounds, Wheezing (bilateral diffuse expiratory wheeze), Respiratory Distress (mild). Negative for: Normal Breath Sounds Gastrointestinal/Abdominal: Positive for: Soft. Negative for: Tenderness Extremity: Positive for: Normal ROM. Negative for: Deformity Neurologic/Psych: Positive for: Alert, Oriented. Negative for: Motor/Sensory Deficits - Laboratory Results Result Diagrams: 08/22/17 03:55 08/22/17 03:55 - ECG O2 Sat by Pulse Oximetry: 96 (RA) Pulse Ox Interpretation: Normal - Critical Care Total Time (In Min): 30 Medical Decision Making Medical Decision Makin Initial impression: SOB in setting of known COPD/asthma Initial plan: * EKG * Labs * Duoneb 3mL INH x3 * Magngesium Sulate 2gm IV * Solumderol 125mg ICP * Peak flow pre/post Tx * Re-eval [id number] Patient reports marked improvement in symptoms and is stable for discharge. Dx: asthma exacerbation Condition: improved Scribe Attestation: Documented by Carole Sabillon acting as a scribe for Antonio Mtz MD. Scribe Attestation: All medical record entries made by the Scribe were at my direction and personally dictated by me. I have reviewed the chart and agree that the record accurately reflects my personal performance of the history, physical exam, medical decision making, and the department course for this patient. I have also personally directed, reviewed, and agree with the discharge instructions and disposition. Disposition - Clinical Impression Clinical Impression: Asthma exacerbation - Patient ED Disposition Is Patient to be Admitted: No - Disposition Disposition: Routine/Home Disposition Time: 04:05 Condition: IMPROVED Prescriptions: Albuterol HFA [Ventolin HFA 90 mcg/actuation (8 g)] 1 - 2 puff IH Q6 PRN #1 inhaler PRN Reason: Shortness Of Breath predniSONE [predniSONE Tab] 60 mg PO QAM #12 tab Instructions: Asthma (ED) Forms: [employer] (Hungarian)
[2017-08-22 04:06] VITALS: O2SAT 96
[2017-08-22 04:10] LABS: BASO % 0.9 % (0.0-2.0); EOS % 0.7 % (0.0-4.0); HEMOGLOBIN 14.8 g/dL (12.0-18.0); LYMPH # 1.1 K/uL (1.0-4.3); LYMPH % 21.7 % (20.0-40.0); MEAN CELL VOLUME 87.9 fl (80.0-94.0); MEAN CORPUSCULAR HGB CONC 34.2 g/dL (33.0-37.0); MEAN PLATELET VOLUME 8.5 fl (7.2-11.7); MONO # 0.5 K/uL (0.0-0.8); MONO % 10.7 % (0.0-10.0); NEUT # 3.4 K/uL (1.8-7.0); NRBC % 0.1 % (0.0-0.0); RBC 4.93 Mil/uL (4.40-5.90); RED CELL DISTRIBUTION WIDTH 13.6 % (11.5-14.5); WHITE BLOOD COUNT 5.1 K/uL (4.8-10.8)
[2017-08-22 04:20] LABS: CALCIUM 9.4 mg/dL (8.4-10.2)
[2017-08-22 04:32] LABS: ALB/GLOB RATIO 1.3 (1.0-2.1); ALBUMIN 4.3 g/dL (3.5-5.0); ALT/SGPT 62 U/L (21-72); AST/SGOT 28 U/L (17-59); BLOOD UREA NITROGEN 12 mg/dl (9-20); GFR AFRICAN-AMERICAN > 60; GFR NON-AFRICAN AMERICAN > 60
[2017-08-22] MEDS ORDERED: Albuterol-Ipratrop 3 mg / 0.5 (3 ml) UD ONE (04:38)
[2017-08-22] MEDS: Albuterol-Ipratrop 3 mg / 0.5 (3 ml) UD INH STA ×2 (04:45→05:10)
--- NOTE | 2017-08-22 13:00 | CARD ---
APPROVED REPORT EKG Measurement Heart [id number] OR [id number] <Conclusion> Normal sinus rhythm Normal ECG
== END 2017-08-22 05:00 | disposition home or self-care (01) ==
LOC: H.ER 02:47
DX: J45.901 Unspecified asthma with (acute) exacerbation (principal); E11.9 Type 2 diabetes mellitus without complications; Z79.84 Long term (current) use of oral hypoglycemic drugs
CPT/HCPCS: 80053; 85025; 93005; 94640; 96374; 99283; J2930

== ENCOUNTER 2017-09-06 04:03 | Emergency (ER) | payer OTHER ==
[2017-09-06 04:04] VITALS: BMI 35.7
[2017-09-06 04:21] VITALS: BP 125/78; PULSE 86; RESP 18; TEMP 98.1
[2017-09-06] MEDS ORDERED: Albuterol-Ipratrop 3 mg / 0.5 (3 ml) UD INH STA ×3 (04:29→04:35)
[2017-09-06] MEDS ORDERED: Albuterol-Ipratrop 3 mg / 0.5 (3 ml) UD ONE (04:44)
[2017-09-06 04:51] VITALS: O2SAT 99
[2017-09-06] MEDS ORDERED: Magnesium Sulfate 2 gm/50 ml 2 GM/50 ML BAG IV STA (05:06)
[2017-09-06] MEDS ORDERED: Magnesium Sulfate 2 gm/50 ml 2 GM/50 ML BAG ONE (05:12)
--- NOTE | 2017-09-06 06:31 | ED PDOC ---
HPI: SOB/CHF/COPD Time Seen by Provider: 09/06/17 04:25 Chief Complaint (Nursing): Respiratory Distress Chief Complaint (Provider): Shortness of Breath and Asthma History Per: Patient History/Exam Limitations: no limitations Onset/Duration Of Symptoms: Hrs (2 hours ago) Additional Complaint(s): Lai Perea, a 51 year old male presents to the Emergency Department complaining of shortness of breath and asthma. The patient used his inhaler, but it provided with little to no relief. Reports he has had multiple visits in to the ED in the past. Also has a medical history of COPD and asthma. PMD: Rickey Baldwin Past Medical History Reviewed: Historical Data, Nursing Documentation, Vital Signs Vital Signs: Last Vital Signs Temp 98.1 F 09/06/17 04:17 Pulse 86 09/06/17 04:17 Resp 18 09/06/17 04:49 BP 125/78 09/06/17 04:17 Pulse Ox 99 09/06/17 07:18 - Medical History PMH: Anxiety, Asthma, Bronchitis, COPD, Depression, Diabetes, Fractures (Left foot fracture), Gastritis Denies: Hepatitis, HIV, HTN, Chronic Kidney Disease, Seizures, Sexually Transmitted Disease - Surgical History Surgical History: No Surg Hx - Family History Family History: States: Diabetes - Social History Current smoker - smoking cessation education provided: Yes Drugs: Other (Cocaine) - Immunization History Hx Tetanus Toxoid Vaccination: No Hx Influenza Vaccination: No Hx Pneumococcal Vaccination: No - Home Medications Home Medications: Ambulatory Orders Medication Instructions Recorded metFORMIN [glucOPHAGE] 850 mg PO BID 05/11/17 Albuterol HFA [Ventolin HFA 90 2 puff IH Q4H #1 puff 07/02/17 mcg/actuation (8 g)] PARoxetine [Paxil] 20 mg PO QAM #30 tab 07/15/17 QUEtiapine [Seroquel] 50 mg PO HS #30 tab 07/15/17 metFORMIN [glucOPHAGE] 850 mg PO BID #60 tab 07/15/17 traZODone [Desyrel] 50 mg PO HS #30 tab 07/15/17 Albuterol HFA [Ventolin HFA 90 1 - 2 puff IH Q6 PRN #1 inhaler 08/22/17 mcg/actuation (8 g)] predniSONE [predniSONE Tab] 60 mg PO QAM #12 tab 08/22/17 Albuterol HFA [Ventolin HFA 90 1 - 2 puff IH Q6 PRN #1 inhaler 09/06/17 mcg/actuation (8 g)] Methylprednisolone [Medrol Dosepak] 4 mg PO ASDIR #1 pkg 09/06/17 - Allergies Allergies/Adverse Reactions: Allergies Allergy/AdvReac Type Severity Reaction Status Date / Time FISH Allergy ANAPHYLAXIS Verified 09/06/17 04:17 Fish Containing Products Allergy ANAPHYLAXIS Verified 09/06/17 04:17 shellfish derived Allergy ANAPHYLAXIS Verified 09/06/17 04:17 seafood Allergy ANAPHYLAXIS Uncoded 09/06/17 04:17 Review of Systems ROS Statement: Except As Marked, All Systems Reviewed And Found Negative Constitutional: Negative for: Fever, Chills Respiratory: Positive for: Shortness of Breath Gastrointestinal: Negative for: Nausea, Vomiting, Abdominal Pain Physical Exam - Reviewed Vital Signs Reviewed: Yes - Physical Exam Appears: Positive for: Well, No Acute Distress, Uncomfortable Head Exam: Positive for: ATRAUMATIC, NORMAL INSPECTION, NORMOCEPHALIC Skin: Positive for: Normal Color, Warm, Dry Eye Exam: Positive for: Normal appearance ENT: Positive for: Normal ENT Inspection Neck: Positive for: Normal, Painless ROM Cardiovascular/Chest: Positive for: Regular Rate, Rhythm. Negative for: Murmur Respiratory: Positive for: Normal Breath Sounds, Wheezing (bilateral diffuse wheezing) Gastrointestinal/Abdominal: Positive for: Normal Exam Back: Positive for: Normal Inspection Extremity: Positive for: Normal ROM. Negative for: Deformity Neurologic/Psych: Positive for: Alert, Oriented (x3) - ECG O2 Sat by Pulse Oximetry: 99 (RA) Pulse Ox Interpretation: Normal - Critical Care Total Time (In Min): 30 Medical Decision Making Medical Decision Making: Time: 4:29 Initial Impression: -- 51 y/o male acute asthma Initial Plan: --EKG --Albuterol/Ipratropium 3ml INH --Magnesium Sulfate 2gm/50ml --SOLU-Medrol 125mg --Heplock IV --Peak flow pre/post treatment --Reevaluation Scribe Attestation: Documented by Dixie Hernandez, acting as a scribe for Antonio Mtz MD Provider Scribe Attestation: All medical record entries made by the Scribe were at my direction and personally dictated by me. I have reviewed the chart and agree that the record accurately reflects my personal performance of the history, physical exam, medical decision making, and the department course for this patient. I have also personally directed, reviewed, and agree with the discharge instructions and disposition. Disposition - Clinical Impression Clinical Impression: Asthma exacerbation attacks - Patient ED Disposition Is Patient to be Admitted: No - Disposition Disposition: Routine/Home Disposition Time: 06:30 Condition: STABLE Prescriptions: Albuterol HFA [Ventolin HFA 90 mcg/actuation (8 g)] 1 - 2 puff IH Q6 PRN #1 inhaler PRN Reason: Shortness Of Breath Methylprednisolone [Medrol Dosepak] 4 mg PO ASDIR #1 pkg Instructions: Asthma (ED) Forms: [employer] (Ivorian)
--- NOTE | 2017-09-07 12:53 | CARD ---
APPROVED REPORT EKG Measurement Heart [id number] [place] [id number] <Conclusion> Normal sinus rhythm Normal ECG
== END 2017-09-06 06:30 | disposition home or self-care (01) ==
LOC: H.ER 04:03
DX: J45.901 Unspecified asthma with (acute) exacerbation (principal); E11.9 Type 2 diabetes mellitus without complications; F17.200 Nicotine dependence, unspecified, uncomplicated; Z86.59 Personal history of other mental and behavioral disorders; Z79.84 Long term (current) use of oral hypoglycemic drugs; J44.9 Chronic obstructive pulmonary disease, unspecified
CPT/HCPCS: 93005; 94640; 96374; 99283; J2930

== ENCOUNTER 2017-09-12 10:36 | Emergency (ER) | payer OTHER ==
[2017-09-12 10:39] VITALS: BMI 36.6
[2017-09-12 10:41] VITALS: TEMP 98.4
[2017-09-12] MEDS ORDERED: Albuterol-Ipratrop 3 mg / 0.5 (3 ml) UD INH STA ×2 (10:47→13:45)
[2017-09-12] MEDS ORDERED: Albuterol-Ipratrop 3 mg / 0.5 (3 ml) UD ONE ×2 (10:54→13:58)
--- NOTE | 2017-09-12 10:57 | ED PDOC ---
HPI: SOB/CHF/COPD Time Seen by Provider: 09/12/17 10:44 Chief Complaint (Nursing): Respiratory Distress Chief Complaint (Provider): SOB, wheeze History Per: Patient History/Exam Limitations: no limitations Onset/Duration Of Symptoms: Days (2), Gradual Current Symptoms Are (Timing): Still Present Initiating Event: Other (weather) Quality: Tightness Exacerbating Factor(s): Exertion, Coughing Current Respiratory Medications: See Home Med List Severity: Moderate Recently: Seen In ED, Treated By A Physician Additional Complaint(s): 51yo male presents c/o return of asthma/wheeze, SOB and chest tightness. +prior ED visits for same. Admits to continued smoking. Denies fever, malaise, hemoptysis or syncope. Past Medical History Reviewed: Historical Data, Nursing Documentation, Vital Signs Vital Signs: Last Vital Signs Temp 98.4 F 09/12/17 10:41 Pulse 87 09/12/17 14:52 Resp 18 09/12/17 14:52 BP 117/75 09/12/17 14:52 Pulse Ox 96 09/12/17 14:52 - Medical History PMH: Anxiety, Asthma, Bronchitis, COPD, Depression, Diabetes, Fractures (Left foot fracture), Gastritis Denies: Hepatitis, HIV, HTN, Chronic Kidney Disease, Seizures, Sexually Transmitted Disease - Family History Family History: States: Diabetes - Living Arrangements Living Arrangements: Other - Social History Current smoker - smoking cessation education provided: Yes - Immunization History Hx Tetanus Toxoid Vaccination: No Hx Influenza Vaccination: No Hx Pneumococcal Vaccination: No - Home Medications Home Medications: Ambulatory Orders Medication Instructions Recorded metFORMIN [glucOPHAGE] 850 mg PO BID 05/11/17 Albuterol HFA [Ventolin HFA 90 2 puff IH Q4H #1 puff 07/02/17 mcg/actuation (8 g)] PARoxetine [Paxil] 20 mg PO QAM #30 tab 07/15/17 QUEtiapine [Seroquel] 50 mg PO HS #30 tab 07/15/17 metFORMIN [glucOPHAGE] 850 mg PO BID #60 tab 07/15/17 traZODone [Desyrel] 50 mg PO HS #30 tab 07/15/17 Albuterol HFA [Ventolin HFA 90 1 - 2 puff IH Q6 PRN #1 inhaler 08/22/17 mcg/actuation (8 g)] predniSONE [predniSONE Tab] 60 mg PO QAM #12 tab 08/22/17 Albuterol HFA [Ventolin HFA 90 1 - 2 puff IH Q6 PRN #1 inhaler 09/06/17 mcg/actuation (8 g)] Methylprednisolone [Medrol Dosepak] 4 mg PO ASDIR #1 pkg 09/06/17 Albuterol HFA [Ventolin HFA 90 1 - 2 puff IH Q4 PRN #1 inhaler 09/12/17 mcg/actuation (8 g)] Prednisone 50 mg PO DAILY #4 tab 09/12/17 - Allergies Allergies/Adverse Reactions: Allergies Allergy/AdvReac Type Severity Reaction Status Date / Time FISH Allergy ANAPHYLAXIS Verified 09/12/17 10:43 Fish Containing Products Allergy ANAPHYLAXIS Verified 09/12/17 10:43 shellfish derived Allergy ANAPHYLAXIS Verified 09/12/17 10:43 seafood Allergy ANAPHYLAXIS Uncoded 09/06/17 04:17 Review of Systems Cardiovascular: Positive for: Chest Pain, Palpitations. Negative for: Orthopnea Respiratory: Positive for: Cough, Shortness of Breath, Wheezing Gastrointestinal: Negative for: Nausea, Abdominal Pain Genitourinary Male: Negative for: Dysuria Musculoskeletal: Negative for: Neck Pain, Shoulder Pain Skin: Negative for: Rash, Lesions, Jaundice Neurological: Negative for: Weakness Psych: Negative for: Anxiety Physical Exam - Reviewed Nursing Documentation Reviewed: Yes Vital Signs Reviewed: Yes - Physical Exam Appears: Positive for: Well, Non-toxic, No Acute Distress Head Exam: Positive for: ATRAUMATIC, NORMAL INSPECTION, NORMOCEPHALIC Skin: Positive for: Normal Color, Warm, DRY Eye Exam: Positive for: EOMI, Normal appearance, PERRL ENT: Positive for: Normal ENT Inspection Neck: Positive for: Normal, Painless ROM Cardiovascular/Chest: Positive for: Regular Rate, Rhythm Respiratory: Positive for: Decreased Breath Sounds, Wheezing, Respiratory Distress (mild) Gastrointestinal/Abdominal: Positive for: Normal Exam, Bowel Sounds, Soft Back: Positive for: Normal Inspection Extremity: Positive for: Normal ROM Neurologic/Psych: Positive for: Alert, Oriented - Laboratory Results Result Diagrams: 09/12/17 11:39 09/12/17 11:39 - ECG O2 Sat by Pulse Oximetry: 97 Medical Decision Making Medical Decision Making: workup for asthma exacerbation initiated Disposition - Clinical Impression Clinical Impression: Asthmatic bronchitis with exacerbation - Patient ED Disposition Is Patient to be Admitted: No Counseled Patient/Family Regarding: Studies Performed, Diagnosis, Need For Followup - Disposition Referrals: [facility] [Outside] Disposition: Routine/Home Disposition Time: 15:06 Condition: STABLE Additional Instructions: Return to ER for any worse or new symptoms. Take medications as directed. Albuterol HFA provided- use 2 puffs every 4-6 hours for next 2 days. Prescriptions: Albuterol HFA [Ventolin HFA 90 mcg/actuation (8 g)] 1 - 2 puff IH Q4 PRN #1 inhaler PRN Reason: Shortness Of Breath Prednisone 50 mg PO DAILY #4 tab Instructions: Asthma (ED), How to Stop Smoking (ED) Forms: [employer] (Lebanese)
--- NOTE | 2017-09-12 11:44 | RAD ---
HISTORY: SOB COMPARISON: Chest radiograph dated 07/02/2017. FINDINGS: LUNGS: No active pulmonary disease. PLEURA: No significant pleural effusion identified, no pneumothorax apparent. CARDIOVASCULAR: Normal. OSSEOUS STRUCTURES: Unchanged. VISUALIZED UPPER ABDOMEN: Normal. OTHER FINDINGS: None. IMPRESSION: No active disease.
[2017-09-12 11:47] LABS: BASO % 0.6 % (0.0-2.0); EOS # 0.1 K/uL (0.0-0.7); EOS % 1.2 % (0.0-4.0); HEMOGLOBIN 15.5 g/dL (12.0-18.0); LYMPH # 1.6 K/uL (1.0-4.3); LYMPH % 29.6 % (20.0-40.0); MEAN CELL VOLUME 88.7 fl (80.0-94.0); MEAN CORPUSCULAR HEMOGLOBIN 29.7 pg (27.0-31.0); MEAN CORPUSCULAR HGB CONC 33.5 g/dL (33.0-37.0); MEAN PLATELET VOLUME 8.9 fl (7.2-11.7); MONO # 0.6 K/uL (0.0-0.8); MONO % 11.9 % (0.0-10.0); NEUT # 3.1 K/uL (1.8-7.0); NEUT % 56.7 % (50.0-75.0); NRBC % 0.1 % (0.0-0.0); RBC 5.23 Mil/uL (4.40-5.90); RED CELL DISTRIBUTION WIDTH 13.9 % (11.5-14.5); WHITE BLOOD COUNT 5.4 K/uL (4.8-10.8)
[2017-09-12 12:15] LABS: ALB/GLOB RATIO 1.3 (1.0-2.1); ALBUMIN 4.1 g/dL (3.5-5.0); ALT/SGPT 50 U/L (21-72); AST/SGOT 29 U/L (17-59); BLOOD UREA NITROGEN 22 mg/dl (9-20); CALCIUM 9.6 mg/dL (8.4-10.2); GFR AFRICAN-AMERICAN > 60; GFR NON-AFRICAN AMERICAN > 60
[2017-09-12 14:53] VITALS: RESP 18
[2017-09-12] MEDS ORDERED: Albuterol HFA 90 mcg/actuation (8 g) INH STA (15:04)
[2017-09-12 16:14] VITALS: BP 134/86; PULSE 83; O2SAT 96
--- NOTE | 2017-09-13 11:26 | CARD ---
APPROVED REPORT EKG Measurement Heart [id number] <Conclusion> Normal sinus rhythm Normal ECG
== END 2017-09-12 16:14 | disposition home or self-care (01) ==
LOC: H.ER 10:36
DX: J45.901 Unspecified asthma with (acute) exacerbation (principal); F17.200 Nicotine dependence, unspecified, uncomplicated; E11.9 Type 2 diabetes mellitus without complications; Z79.84 Long term (current) use of oral hypoglycemic drugs; J44.9 Chronic obstructive pulmonary disease, unspecified; F41.9 Anxiety disorder, unspecified; F32.9 Major depressive disorder, single episode, unspecified
CPT/HCPCS: 71045; 80053; 83880; 85025; 87804; 93005; 94640; 96374; 99283; J2930

== ENCOUNTER 2017-09-22 04:29 | Emergency (ER) | payer OTHER ==
[2017-09-22 04:30] VITALS: BMI 36.6
[2017-09-22] MEDS ORDERED: Albuterol-Ipratrop 3 mg / 0.5 (3 ml) UD INH STA ×3 (05:05→05:15)
--- NOTE | 2017-09-22 05:48 | ED PDOC ---
HPI: SOB/CHF/COPD Time Seen by Provider: 09/22/17 04:48 Chief Complaint (Nursing): Back Pain Chief Complaint (Provider): Shortness of breath History Per: Patient History/Exam Limitations: no limitations Onset/Duration Of Symptoms: Days (x 1) Current Symptoms Are (Timing): Still Present Additional Complaint(s): 51 year old male with history of asthma, who is well known to the ED and the provider, presents to the ED with shortness of breath and back pain, onset 20: 00 last night. He is homeless and often comes to the ED requesting duonebs for the same symptoms. PMD: none provided Past Medical History Reviewed: Historical Data Vital Signs: Last Vital Signs Temp 98.0 F 09/22/17 06:37 Pulse 79 09/22/17 06:37 Resp 17 09/22/17 06:37 BP 121/69 09/22/17 06:37 Pulse Ox 99 09/22/17 06:37 - Medical History PMH: Anxiety, Asthma, Bronchitis, COPD, Depression, Diabetes, Fractures (Left foot fracture), Gastritis Denies: Hepatitis, HIV, HTN, Chronic Kidney Disease, Seizures, Sexually Transmitted Disease - Surgical History Surgical History: No Surg Hx - Family History Family History: States: Unknown Family Hx, Diabetes - Immunization History Hx Tetanus Toxoid Vaccination: No Hx Influenza Vaccination: No Hx Pneumococcal Vaccination: No - Home Medications Home Medications: Ambulatory Orders Medication Instructions Recorded metFORMIN [glucOPHAGE] 850 mg PO BID 05/11/17 Albuterol HFA [Ventolin HFA 90 2 puff IH Q4H #1 puff 07/02/17 mcg/actuation (8 g)] PARoxetine [Paxil] 20 mg PO QAM #30 tab 07/15/17 QUEtiapine [Seroquel] 50 mg PO HS #30 tab 07/15/17 metFORMIN [glucOPHAGE] 850 mg PO BID #60 tab 07/15/17 traZODone [Desyrel] 50 mg PO HS #30 tab 07/15/17 Albuterol HFA [Ventolin HFA 90 1 - 2 puff IH Q6 PRN #1 inhaler 08/22/17 mcg/actuation (8 g)] predniSONE [predniSONE Tab] 60 mg PO QAM #12 tab 08/22/17 Albuterol HFA [Ventolin HFA 90 1 - 2 puff IH Q6 PRN #1 inhaler 09/06/17 mcg/actuation (8 g)] Methylprednisolone [Medrol Dosepak] 4 mg PO ASDIR #1 pkg 09/06/17 Albuterol HFA [Ventolin HFA 90 1 - 2 puff IH Q4 PRN #1 inhaler 09/12/17 mcg/actuation (8 g)] Prednisone 50 mg PO DAILY #4 tab 09/12/17 Albuterol Sulfate [Proair Hfa] 0.09 mg IH Q6 PRN #1 inh 09/22/17 predniSONE [predniSONE Tab] 60 mg PO QAM #12 tab 09/22/17 - Allergies Allergies/Adverse Reactions: Allergies Allergy/AdvReac Type Severity Reaction Status Date / Time FISH Allergy ANAPHYLAXIS Verified 09/12/17 10:43 Fish Containing Products Allergy ANAPHYLAXIS Verified 09/12/17 10:43 shellfish derived Allergy ANAPHYLAXIS Verified 09/12/17 10:43 seafood Allergy ANAPHYLAXIS Uncoded 09/06/17 04:17 Review of Systems ROS Statement: Except As Marked, All Systems Reviewed And Found Negative Cardiovascular: Positive for: Other (Chest tightness) Respiratory: Positive for: Shortness of Breath, Wheezing Musculoskeletal: Positive for: Back Pain Physical Exam - Reviewed Nursing Documentation Reviewed: Yes Vital Signs Reviewed: Yes - Physical Exam Appears: Positive for: Non-toxic, No Acute Distress Head Exam: Positive for: ATRAUMATIC, NORMOCEPHALIC Skin: Positive for: Normal Color, Warm, Dry Eye Exam: Positive for: EOMI, Normal appearance, PERRL Neck: Positive for: Normal, Painless ROM, Supple Cardiovascular/Chest: Positive for: Regular Rate, Rhythm. Negative for: Murmur Respiratory: Positive for: Decreased Breath Sounds (air intake), Wheezing ( bilateral diffuse expiratory ), Respiratory Distress (mild) Gastrointestinal/Abdominal: Positive for: Normal Exam, Soft Back: Positive for: Normal Inspection. Negative for: L CVA Tenderness, R CVA Tenderness Extremity: Positive for: Normal ROM. Negative for: Deformity Neurologic/Psych: Positive for: Alert, Oriented. Negative for: Motor/Sensory Deficits - ECG O2 Sat by Pulse Oximetry: 97 Medical Decision Making Medical Decision Making: Time: 05:05 Impression: 51 year old male with dysuria initial Plan: --EKG --Duoneb 3 ml INH --Duoneb 3 ml INH --Duoneb 3 ml INH --Prednisolone 125 mg IVP --peak flow pre/post Diagnosis is asthma exacerbation. Patient reports marked improvement and require no further treatment at this time. Return is symptoms persist or worsen. Scribe Attestation: Documented by Zaira Conteh, acting as a scribe for Antonio Mtz MD. Provider Scribe Attestation: All medical record entries made by the Scribe were at my direction and personally dictated by me. I have reviewed the chart and agree that the record accurately reflects my personal performance of the history, physical exam, medical decision making, and the department course for this patient. I have also personally directed, reviewed, and agree with the discharge instructions and disposition. Disposition - Clinical Impression Clinical Impression: Asthma exacerbation attacks - Patient ED Disposition Is Patient to be Admitted: No - Disposition Disposition: Routine/Home Disposition Time: 06:57 Condition: STABLE Prescriptions: Albuterol Sulfate [Proair Hfa] 0.09 mg IH Q6 PRN #1 inh PRN Reason: Shortness Of Breath predniSONE [predniSONE Tab] 60 mg PO QAM #12 tab Instructions: Asthma (ED) Forms: [employer] (German)
[2017-09-22 06:38] VITALS: BP 121/69; PULSE 79; RESP 17; TEMP 98
[2017-09-22 06:57] VITALS: O2SAT 97
--- NOTE | 2017-09-22 10:17 | CARD ---
APPROVED REPORT EKG Measurement Heart [id number] <Conclusion> Normal sinus rhythm Cannot rule out Anterior infarct, age undetermined-not diagnostic Abnormal ECG
== END 2017-09-22 06:35 | disposition home or self-care (01) ==
LOC: H.ER 04:29
DX: J45.901 Unspecified asthma with (acute) exacerbation (principal); E11.9 Type 2 diabetes mellitus without complications; F32.9 Major depressive disorder, single episode, unspecified; F41.9 Anxiety disorder, unspecified; Z59.0 Homelessness; Z79.84 Long term (current) use of oral hypoglycemic drugs
CPT/HCPCS: 93005; 94640; 96374; 99284; J2930

== ENCOUNTER 2017-09-29 11:46 | Emergency (ER) | payer OTHER ==
[2017-09-29 11:46] VITALS: BMI 36.6
[2017-09-29 12:24] VITALS: RESP 18
--- NOTE | 2017-09-29 13:26 | ED PDOC ---
HPI: Back Time Seen by Provider: 09/29/17 12:20 Chief Complaint (Nursing): Back Pain Chief Complaint (Provider): Back pain History Per: Patient Additional Complaint(s): Patient states he slipped in the snow and landed on the curb - hitting his lower /mid back. Event occured 2 days ago. Pt ambulating with steady gait. no bowel or bladder dysfunction Past Medical History Reviewed: Nursing Documentation, Vital Signs Vital Signs: Last Vital Signs Temp 97.8 F 09/29/17 12:21 Pulse 75 09/29/17 12:21 Resp 18 09/29/17 12:21 BP 148/106 H 09/29/17 12:21 Pulse Ox 99 09/29/17 12:21 - Medical History PMH: Anxiety, Asthma, Bronchitis, COPD, Depression, Diabetes, Fractures (Left foot fracture), Gastritis Denies: Hepatitis, HIV, HTN, Chronic Kidney Disease, Seizures, Sexually Transmitted Disease - Family History Family History: States: Unknown Family Hx, Diabetes - Living Arrangements Living Arrangements: With Family - Social History Current smoker - smoking cessation education provided: No Alcohol: Social Drugs: Denies - Immunization History Hx Tetanus Toxoid Vaccination: No Hx Influenza Vaccination: No Hx Pneumococcal Vaccination: Yes - Home Medications Home Medications: Ambulatory Orders Medication Instructions Recorded metFORMIN [glucOPHAGE] 850 mg PO BID 05/11/17 Albuterol HFA [Ventolin HFA 90 2 puff IH Q4H #1 puff 07/02/17 mcg/actuation (8 g)] PARoxetine [Paxil] 20 mg PO QAM #30 tab 07/15/17 QUEtiapine [Seroquel] 50 mg PO HS #30 tab 07/15/17 metFORMIN [glucOPHAGE] 850 mg PO BID #60 tab 07/15/17 traZODone [Desyrel] 50 mg PO HS #30 tab 07/15/17 Albuterol HFA [Ventolin HFA 90 1 - 2 puff IH Q6 PRN #1 inhaler 08/22/17 mcg/actuation (8 g)] predniSONE [predniSONE Tab] 60 mg PO QAM #12 tab 08/22/17 Albuterol HFA [Ventolin HFA 90 1 - 2 puff IH Q6 PRN #1 inhaler 09/06/17 mcg/actuation (8 g)] Methylprednisolone [Medrol Dosepak] 4 mg PO ASDIR #1 pkg 09/06/17 Albuterol HFA [Ventolin HFA 90 1 - 2 puff IH Q4 PRN #1 inhaler 09/12/17 mcg/actuation (8 g)] Prednisone 50 mg PO DAILY #4 tab 09/12/17 Albuterol Sulfate [Proair Hfa] 0.09 mg IH Q6 PRN #1 inh 09/22/17 predniSONE [predniSONE Tab] 60 mg PO QAM #12 tab 09/22/17 Cyclobenzaprine [Cyclobenzaprine 10 mg PO TID #20 tab 09/29/17 HCl] oxyCODONE/Acetaminophen [Percocet 1 ea PO Q6 PRN #5 tab 09/29/17 5/325 mg Tab] - Allergies Allergies/Adverse Reactions: Allergies Allergy/AdvReac Type Severity Reaction Status Date / Time FISH Allergy ANAPHYLAXIS Verified 09/29/17 12:59 Fish Containing Products Allergy ANAPHYLAXIS Verified 09/29/17 12:59 shellfish derived Allergy ANAPHYLAXIS Verified 09/29/17 12:59 seafood Allergy Severe ANAPHYLAXIS Uncoded 09/29/17 12:59 Review of Systems ROS Statement: Except As Marked, All Systems Reviewed And Found Negative Musculoskeletal: Positive for: Back Pain Physical Exam - Reviewed Nursing Documentation Reviewed: Yes Vital Signs Reviewed: Yes - Physical Exam Appears: Positive for: Well, Non-toxic, No Acute Distress Head Exam: Positive for: ATRAUMATIC, NORMAL INSPECTION, NORMOCEPHALIC Skin: Positive for: Normal Color, Warm, DRY Eye Exam: Positive for: EOMI, Normal appearance, PERRL ENT: Positive for: Normal ENT Inspection Neck: Positive for: Normal, Painless ROM Cardiovascular/Chest: Positive for: Regular Rate, Rhythm Respiratory: Positive for: CNT, Normal Breath Sounds Gastrointestinal/Abdominal: Positive for: Normal Exam, Bowel Sounds, Soft Back: Positive for: Normal Inspection, Vertebral Tenderness (thoracic), Other ( LS paraspinal tenderness) Extremity: Positive for: Normal ROM Neurologic/Psych: Positive for: Alert, Oriented - ECG O2 Sat by Pulse Oximetry: 99 Medical Decision Making Medical Decision Making: Pt medicated for pain. Thoracic and lumbar films obtained, both NAD as read by PAHannah Repeat BP: 133/88 Disposition - Clinical Impression Clinical Impression: Low back pain, Contusion - Patient ED Disposition Is Patient to be Admitted: No - Disposition Disposition: Routine/Home Disposition Time: 13:00 Condition: STABLE Prescriptions: Cyclobenzaprine [Cyclobenzaprine HCl] 10 mg PO TID #20 tab oxyCODONE/Acetaminophen [Percocet 5/325 mg Tab] 1 ea PO Q6 PRN #5 tab PRN Reason: Pain, Severe (8-10) Instructions: Low Back Pain in Adults Forms: [employer] (Mauritian)
[2017-09-29] MEDS ORDERED: Oxycodone/Acetaminophen 5/325 mg Tab ONE (13:44)
[2017-09-29] MEDS: Oxycodone/Acetaminophen 5/325 mg Tab PO STA (13:53)
[2017-09-29 14:57] VITALS: BP 130/78; PULSE 78; TEMP 98.1
--- NOTE | 2017-09-29 15:13 | RAD ---
HISTORY: pain s/p fall COMPARISON: No prior. FINDINGS: BONES: Alignment maintained. No fracture. DISC SPACES: Normal. SOFT TISSUES: Normal. OTHER FINDINGS: None. IMPRESSION: Normal radiographs of the thoracic spine.
--- NOTE | 2017-09-29 15:14 | RAD ---
PROCEDURE: Radiographs of the Lumbar Spine. HISTORY: pain s/p fall COMPARISON: No prior. FINDINGS: BONES: Normal alignment. No listhesis. No fracture. DISC SPACES: Unremarkable. OTHER FINDINGS: None. IMPRESSION: Unremarkable radiographs of the lumbar spine.
[2017-10-01 22:01] VITALS: O2SAT 99
== END 2017-09-29 15:21 | disposition home or self-care (01) ==
LOC: H.ER 11:46
DX: S30.0XXA Contusion of lower back and pelvis, initial encounter (principal); W19.XXXA Unspecified fall, initial encounter; Y92.480 Sidewalk as the place of occurrence of the external cause; E11.9 Type 2 diabetes mellitus without complications; Z79.84 Long term (current) use of oral hypoglycemic drugs

== ENCOUNTER 2017-11-01 17:14 | Emergency (ER) | payer MEDICAID, OTHER ==
[2017-11-01 17:14] VITALS: BMI 34.9
[2017-11-01 17:26] VITALS: TEMP 97.6
--- NOTE | 2017-11-01 17:30 | ED PDOC ---
HPI: SOB/CHF/COPD Time Seen by Provider: 11/01/17 17:29 Chief Complaint (Nursing): Shortness Of Breath Chief Complaint (Provider): asthma History Per: Patient Additional Complaint(s): 51-year-old non-domiciled male with history of asthma presents to emergency department with asthma exacerbation that started earlier today. Patient states he ran out of his Ventolin inhaler 2 days ago. He has mild shortness of breath and wheezing, denies any chest pain. Patient is well-known to emergency department for frequent visits for same. PMD: none Past Medical History Reviewed: Historical Data, Nursing Documentation, Vital Signs Vital Signs: Last Vital Signs Temp 97.6 F 11/01/17 17:22 Pulse 68 11/01/17 17:22 Resp 20 11/01/17 17:43 BP 124/75 11/01/17 17:22 Pulse Ox 97 11/01/17 17:30 - Medical History PMH: Anxiety, Asthma, COPD, Depression, Diabetes, Gastritis, HTN, Hypercholesterolemia - Family History Family History: States: Diabetes - Living Arrangements Living Arrangements: Other (non-domiciled) - Social History Current smoker - smoking cessation education provided: Yes ("sometimes") Alcohol: None Drugs: Denies - Home Medications Home Medications: Ambulatory Orders Medication Instructions Recorded Albuterol HFA [Ventolin HFA 90 2 puff IH Q4H #1 puff 07/02/17 mcg/actuation (8 g)] PARoxetine [Paxil] 20 mg PO QAM #30 tab 07/15/17 QUEtiapine [Seroquel] 50 mg PO HS #30 tab 07/15/17 traZODone [Desyrel] 50 mg PO HS #30 tab 07/15/17 Albuterol Sulfate [Proair Hfa] 0.09 mg IH Q6 PRN #1 inh 09/22/17 Albuterol HFA [Ventolin HFA 90 1 puff INH RQ4 PRN inhaler 10/20/17 mcg/actuation (8 g)] Benztropine [Cogentin] 1 mg PO BID #60 tab 10/20/17 Gabapentin [Neurontin] 300 mg PO BID #60 cap 10/20/17 PARoxetine [Paxil] 40 mg PO DAILY #30 tab 10/20/17 metFORMIN [glucOPHAGE] 500 mg PO BID tab 10/20/17 metFORMIN [glucOPHAGE] 850 mg PO BID #60 tab 10/20/17 risperiDONE [RisperDAL Tab] 1 mg PO HS #30 tab 10/20/17 traZODone [Desyrel] 100 mg PO HS PRN #30 tab 10/20/17 Albuterol HFA [Ventolin HFA 90 1 puff IH QID PRN #1 bottle 10/31/17 mcg/actuation (8 g)] metFORMIN [glucOPHAGE] 850 mg PO BID #15 tab 10/31/17 predniSONE [Prednisone] 60 mg PO DAILY #12 tab 10/31/17 Albuterol HFA [Ventolin HFA 90 1 puff IH ASDIR #1 unit 11/01/17 mcg/actuation (8 g)] Prednisone 50 mg PO DAILY #5 tablet 11/01/17 - Allergies Allergies/Adverse Reactions: Allergies Allergy/AdvReac Type Severity Reaction Status Date / Time FISH Allergy ANAPHYLAXIS Verified 11/01/17 17:21 Fish Containing Products Allergy ANAPHYLAXIS Verified 11/01/17 17:21 shellfish derived Allergy ANAPHYLAXIS Verified 11/01/17 17:21 seafood Allergy Severe ANAPHYLAXIS Uncoded 10/31/17 13:10 Review of Systems ROS Statement: Except As Marked, All Systems Reviewed And Found Negative Constitutional: Negative for: Fever Cardiovascular: Negative for: Chest Pain Respiratory: Positive for: Wheezing Physical Exam - Reviewed Nursing Documentation Reviewed: Yes Vital Signs Reviewed: Yes - Physical Exam Appears: Positive for: Well, Non-toxic, No Acute Distress Skin: Negative for: Rash Eye Exam: Positive for: Normal appearance Cardiovascular/Chest: Positive for: Regular Rate, Rhythm Respiratory: Positive for: Decreased Breath Sounds. Negative for: Respiratory Distress Neurologic/Psych: Positive for: Alert, Oriented - ECG O2 Sat by Pulse Oximetry: 97 Pulse Ox Interpretation: Normal Nebulizer Treatments/Peak Flow - Duonebs Number of Bronchodilator Doses given?: 1 (duoneb) - Pre/Post Peak Flow Pre Treatment Peak Flow: 250 Post treatment Peak Flow: 300 - Steroid Treatment Steroid: Oral (prednisone) - Clinical Response Clinical Response: Improved Medical Decision Making Medical Decision Making: Asthma exacerbation Plan: Duoneb x 1 Prednisone 40 mg PO Patient feels better after meds given in ED. Prescriptions provided for Ventolin inhaler and prednisone. Patient was referred to clinic for follow-up Disposition - Clinical Impression Clinical Impression: Asthma exacerbation, mild - Patient ED Disposition Is Patient to be Admitted: No Counseled Patient/Family Regarding: Diagnosis, Need For Followup, Rx Given - Disposition Referrals: [facility] [Outside] Disposition: Routine/Home Disposition Time: 18:21 Condition: IMPROVED Additional Instructions: Take meds as directed. Follow up with clinic. Prescriptions: Albuterol HFA [Ventolin HFA 90 mcg/actuation (8 g)] 1 puff IH ASDIR #1 unit Prednisone 50 mg PO DAILY #5 tablet Instructions: Asthma in Adults Forms: [employer] (Armenian)
[2017-11-01] MEDS ORDERED: Albuterol-Ipratrop 3 mg / 0.5 (3 ml) UD INH STA (17:35)
[2017-11-01] MEDS ORDERED: Albuterol-Ipratrop 3 mg / 0.5 (3 ml) UD ONE (17:39)
[2017-11-01 18:45] VITALS: BP 130/76; PULSE 76; RESP 18; O2SAT 99
== END 2017-11-01 18:46 | disposition home or self-care (01) ==
LOC: H.ER 17:14
DX: J45.901 Unspecified asthma with (acute) exacerbation (principal); E11.9 Type 2 diabetes mellitus without complications; Z79.84 Long term (current) use of oral hypoglycemic drugs

== ENCOUNTER 2017-11-06 16:01 | Emergency (ER) | payer OTHER ==
[2017-11-06 16:01] VITALS: BMI 34.9
[2017-11-06 16:13] VITALS: BP 137/75; RESP 16; TEMP 97.9; O2SAT 99
--- NOTE | 2017-11-06 16:42 | ED PDOC ---
HPI: General Adult Time Seen by Provider: 11/06/17 16:17 Chief Complaint (Nursing): Chest Pain History Per: Patient Additional Complaint(s): Pt. states since yesterday afternoon he's had non-radiating, atraumatic L sided chest pain. Reports pain has no alleviating or exacerbating factors. Denies trauma, fever, cough, weakness, numbness, tingling. Pt. states he does use cocaine (last time he used was on 10/26/2017). Past Medical History Reviewed: Historical Data, Nursing Documentation, Vital Signs Vital Signs: Last Vital Signs Temp 97.9 F 11/06/17 16:11 Pulse 75 11/06/17 19:14 Resp 16 11/06/17 16:11 BP 137/75 11/06/17 16:11 Pulse Ox 99 11/06/17 19:14 - Medical History PMH: Anxiety, Asthma, Bronchitis, COPD, Depression, Diabetes, Fractures (Left foot fracture), Gastritis, HTN, Hypercholesterolemia Denies: Hepatitis, HIV, Chronic Kidney Disease, Seizures, Sexually Transmitted Disease - Family History Family History: States: Diabetes - Social History Current smoker - smoking cessation education provided: No Ex-Smoker (has not smoked in the last 12 months): Yes Drugs: Cocaine - Immunization History Hx Tetanus Toxoid Vaccination: No Hx Influenza Vaccination: No Hx Pneumococcal Vaccination: Yes - Home Medications Home Medications: Ambulatory Orders Medication Instructions Recorded Albuterol HFA [Ventolin HFA 90 2 puff IH Q4H #1 puff 07/02/17 mcg/actuation (8 g)] PARoxetine [Paxil] 20 mg PO QAM #30 tab 07/15/17 QUEtiapine [Seroquel] 50 mg PO HS #30 tab 07/15/17 traZODone [Desyrel] 50 mg PO HS #30 tab 07/15/17 Albuterol Sulfate [Proair Hfa] 0.09 mg IH Q6 PRN #1 inh 09/22/17 Albuterol HFA [Ventolin HFA 90 1 puff INH RQ4 PRN inhaler 10/20/17 mcg/actuation (8 g)] Benztropine [Cogentin] 1 mg PO BID #60 tab 10/20/17 Gabapentin [Neurontin] 300 mg PO BID #60 cap 10/20/17 PARoxetine [Paxil] 40 mg PO DAILY #30 tab 10/20/17 metFORMIN [glucOPHAGE] 500 mg PO BID tab 10/20/17 metFORMIN [glucOPHAGE] 850 mg PO BID #60 tab 10/20/17 risperiDONE [RisperDAL Tab] 1 mg PO HS #30 tab 10/20/17 traZODone [Desyrel] 100 mg PO HS PRN #30 tab 10/20/17 Albuterol HFA [Ventolin HFA 90 1 puff IH QID PRN #1 bottle 10/31/17 mcg/actuation (8 g)] metFORMIN [glucOPHAGE] 850 mg PO BID #15 tab 10/31/17 predniSONE [Prednisone] 60 mg PO DAILY #12 tab 10/31/17 Albuterol HFA [Ventolin HFA 90 1 puff IH ASDIR #1 unit 11/01/17 mcg/actuation (8 g)] Prednisone 50 mg PO DAILY #5 tablet 11/01/17 - Allergies Allergies/Adverse Reactions: Allergies Allergy/AdvReac Type Severity Reaction Status Date / Time FISH Allergy ANAPHYLAXIS Verified 11/01/17 17:21 Fish Containing Products Allergy ANAPHYLAXIS Verified 11/01/17 17:21 shellfish derived Allergy ANAPHYLAXIS Verified 11/01/17 17:21 seafood Allergy Severe ANAPHYLAXIS Uncoded 10/31/17 13:10 Review of Systems ROS Statement: Except As Marked, All Systems Reviewed And Found Negative Cardiovascular: Positive for: Chest Pain Physical Exam - Physical Exam Appears: Positive for: Well, Non-toxic, No Acute Distress Skin: Positive for: Normal Color, Warm. Negative for: Rash Eye Exam: Positive for: EOMI, Normal appearance, PERRL ENT: Positive for: Normal ENT Inspection Cardiovascular/Chest: Positive for: Regular Rate, Rhythm, Chest Non Tender. Negative for: Tachycardia Respiratory: Positive for: CNT, Normal Breath Sounds Gastrointestinal/Abdominal: Positive for: Normal Exam, Soft. Negative for: Tenderness Back: Positive for: Normal Inspection Neurologic/Psych: Positive for: Alert, Oriented, Gait (steady, unassisted), Other (equal high scaler strength b/l). Negative for: Aphasia, Facial Droop - Laboratory Results Result Diagrams: 11/06/17 17:21 11/06/17 17:21 - ECG ECG: Positive for: Interpreted By Me ECG Rhythm: Positive for: Sinus Rhythm. Negative for: ST/T Changes Rate: 75 O2 Sat by Pulse Oximetry: 99 - Radiology X-Ray: Interpreted by Me (CXR) X-Ray Interpretation: No Acute Disease - Progress ED Course And Treament: Labs, ASA 324mg chew, CXR, EKG ordered. Pt. placed on prospecting observer. 1840 On re-evaluation, pt. found sleeping comfortably on stretcher. Easily arousable. Reports good pain relief. No distress. Case d/w Dr. Anderson who agrees with care and disposition. Disposition - Clinical Impression Clinical Impression: Chest pain - Patient ED Disposition Is Patient to be Admitted: No - Disposition Referrals: [facility] [Outside] Disposition: Routine/Home Disposition Time: 18:45 Condition: IMPROVED Additional Instructions: Follow up with [facility] for further evaluation. Return to ED immediately if symptoms worsen. Instructions: Chest Pain (DC) Forms: [facility] (Belarusian)
--- NOTE | 2017-11-06 17:08 | RAD ---
HISTORY: chest pain COMPARISON: Portable chest 09/12/2017 FINDINGS: LUNGS: No active pulmonary disease. PLEURA: No significant pleural effusion identified, no pneumothorax apparent. CARDIOVASCULAR: Stable cardiomediastinal silhouette including borderline cardiomegaly versus technical magnification. OSSEOUS STRUCTURES: No significant abnormalities. VISUALIZED UPPER ABDOMEN: Normal. OTHER FINDINGS: None. IMPRESSION: No interval acute cardiopulmonary disease appreciated. Cardiac silhouette may be magnified by technique. Borderline cardiomegaly not excluded.
[2017-11-06 17:33] LABS: BASO % 0.9 % (0.0-2.0); EOS # 0.2 K/uL (0.0-0.7); EOS % 5.4 % (0.0-4.0); HEMOGLOBIN 14.4 g/dL (12.0-18.0); LYMPH % 28.8 % (20.0-40.0); MEAN CELL VOLUME 90.6 fl (80.0-94.0); MEAN CORPUSCULAR HEMOGLOBIN 30.5 pg (27.0-31.0); MEAN CORPUSCULAR HGB CONC 33.6 g/dL (33.0-37.0); MEAN PLATELET VOLUME 8.6 fl (7.2-11.7); MONO # 0.5 K/uL (0.0-0.8); MONO % 15.7 % (0.0-10.0); NEUT # 1.7 K/uL (1.8-7.0); NEUT % 49.2 % (50.0-75.0); RBC 4.73 Mil/uL (4.40-5.90); RED CELL DISTRIBUTION WIDTH 13.6 % (11.5-14.5); WHITE BLOOD COUNT 3.4 K/uL (4.8-10.8)
[2017-11-06 17:35] LABS: ALB/GLOB RATIO 1.2 (1.0-2.1); ALBUMIN 3.7 g/dL (3.5-5.0); ALT/SGPT 43 U/L (21-72); AST/SGOT 19 U/L (17-59); BLOOD UREA NITROGEN 15 mg/dl (9-20); GFR AFRICAN-AMERICAN > 60; GFR NON-AFRICAN AMERICAN > 60
[2017-11-06 19:09] VITALS: PULSE 75
--- NOTE | 2017-11-07 15:51 | CARD ---
APPROVED REPORT EKG Measurement Heart [id number] <Conclusion> Normal sinus rhythm Normal ECG
== END 2017-11-06 19:34 | disposition home or self-care (01) ==
LOC: H.ER 16:01
DX: R07.89 Other chest pain (principal); E11.9 Type 2 diabetes mellitus without complications; E78.00 Pure hypercholesterolemia, unspecified; F32.9 Major depressive disorder, single episode, unspecified; F41.9 Anxiety disorder, unspecified; I10 Essential (primary) hypertension; Z79.84 Long term (current) use of oral hypoglycemic drugs; J44.9 Chronic obstructive pulmonary disease, unspecified

== ENCOUNTER 2017-11-16 13:32 | Emergency (ER) | payer OTHER ==
[2017-11-16 13:32] VITALS: BMI 34.9
[2017-11-16 14:01] VITALS: PULSE 66; TEMP 98; O2SAT 98
[2017-11-16 14:15] VITALS: BP 145/80
[2017-11-16 14:32] VITALS: RESP 16
[2017-11-16] MEDS ORDERED: Albuterol 0.083% Inhal Sol (2.5 mg/3 mL) UD INH ONE (14:40)
[2017-11-16] MEDS ORDERED: Albuterol 0.083% Inhal Sol (2.5 mg/3 mL) UD ONE (14:50)
[2017-11-16] MEDS ORDERED: Albuterol-Ipratrop 3 mg / 0.5 (3 ml) UD ONE (15:24)
--- NOTE | 2017-11-16 15:51 | ED PDOC ---
HPI: SOB/CHF/COPD Time Seen by Provider: 11/16/17 13:40 Chief Complaint (Nursing): Respiratory Distress Chief Complaint (Provider): Respiratory Distress History Per: Patient History/Exam Limitations: no limitations Onset/Duration Of Symptoms: Days (3) Additional Complaint(s): 51 y/o male with past medical history of asthma presents to the ED complaining of respiratory distress. Reports that his asthma is acting up. Denies fever, vomiting, diarrhea or any further medical complaints. PMD: Rickey Baldwin MD Past Medical History Vital Signs: Last Vital Signs Temp 98 F 11/16/17 13:58 Pulse 66 11/16/17 13:58 Resp 16 11/16/17 14:31 BP 145/80 11/16/17 14:15 Pulse Ox 98 11/16/17 15:59 - Medical History PMH: Anxiety, Asthma, Bronchitis, COPD, Depression, Diabetes, Fractures (Left foot fracture), Gastritis, HTN, Hypercholesterolemia Denies: Hepatitis, HIV, Chronic Kidney Disease, Seizures, Sexually Transmitted Disease - Surgical History Surgical History: No Surg Hx - Family History Family History: States: Unknown Family Hx, Diabetes - Social History Current smoker - smoking cessation education provided: Yes (Light Smoker < 10 Cigarettes Daily) Alcohol: Occasional Drugs: Other (weed) - Immunization History Hx Tetanus Toxoid Vaccination: No Hx Influenza Vaccination: No Hx Pneumococcal Vaccination: Yes - Home Medications Home Medications: Ambulatory Orders Medication Instructions Recorded Albuterol HFA [Ventolin HFA 90 2 puff IH Q4H #1 puff 07/02/17 mcg/actuation (8 g)] PARoxetine [Paxil] 20 mg PO QAM #30 tab 07/15/17 QUEtiapine [Seroquel] 50 mg PO HS #30 tab 07/15/17 traZODone [Desyrel] 50 mg PO HS #30 tab 07/15/17 Albuterol Sulfate [Proair Hfa] 0.09 mg IH Q6 PRN #1 inh 09/22/17 Albuterol HFA [Ventolin HFA 90 1 puff INH RQ4 PRN inhaler 10/20/17 mcg/actuation (8 g)] Benztropine [Cogentin] 1 mg PO BID #60 tab 10/20/17 Gabapentin [Neurontin] 300 mg PO BID #60 cap 10/20/17 PARoxetine [Paxil] 40 mg PO DAILY #30 tab 10/20/17 metFORMIN [glucOPHAGE] 500 mg PO BID tab 10/20/17 metFORMIN [glucOPHAGE] 850 mg PO BID #60 tab 10/20/17 risperiDONE [RisperDAL Tab] 1 mg PO HS #30 tab 10/20/17 traZODone [Desyrel] 100 mg PO HS PRN #30 tab 10/20/17 Albuterol HFA [Ventolin HFA 90 1 puff IH QID PRN #1 bottle 10/31/17 mcg/actuation (8 g)] metFORMIN [glucOPHAGE] 850 mg PO BID #15 tab 10/31/17 predniSONE [Prednisone] 60 mg PO DAILY #12 tab 10/31/17 Albuterol HFA [Ventolin HFA 90 1 puff IH ASDIR #1 unit 11/01/17 mcg/actuation (8 g)] Prednisone 50 mg PO DAILY #5 tablet 11/01/17 Albuterol HFA [Ventolin HFA 90 1 - 2 puff IH Q4H PRN #1 bottle 11/16/17 mcg/actuation (8 g)] predniSONE [Prednisone] 40 mg PO DAILY #8 tab 11/16/17 - Allergies Allergies/Adverse Reactions: Allergies Allergy/AdvReac Type Severity Reaction Status Date / Time FISH Allergy ANAPHYLAXIS Verified 11/01/17 17:21 Fish Containing Products Allergy ANAPHYLAXIS Verified 11/01/17 17:21 shellfish derived Allergy ANAPHYLAXIS Verified 11/01/17 17:21 seafood Allergy Severe ANAPHYLAXIS Uncoded 10/31/17 13:10 Review of Systems ROS Statement: Except As Marked, All Systems Reviewed And Found Negative (As per HPI, otherwise negative) Constitutional: Negative for: Fever Respiratory: Positive for: Other (respiratory distress) Gastrointestinal: Negative for: Vomiting, Diarrhea Physical Exam - Reviewed Nursing Documentation Reviewed: Yes Vital Signs Reviewed: Yes - Physical Exam Appears: Positive for: Non-toxic, No Acute Distress (Patient is comfortably sleeping in chair) Head Exam: Positive for: ATRAUMATIC, NORMAL INSPECTION, NORMOCEPHALIC Skin: Positive for: Normal Color, Warm, Dry Neck: Positive for: Normal, Painless ROM, Supple Cardiovascular/Chest: Positive for: Regular Rate, Rhythm. Negative for: Murmur Respiratory: Positive for: Wheezing (Slight wheezing but the patient is speaking in full sentences) Gastrointestinal/Abdominal: Positive for: Normal Exam, Soft. Negative for: Tenderness Back: Positive for: Normal Inspection Extremity: Positive for: Normal ROM. Negative for: Deformity Neurologic/Psych: Positive for: Alert, Oriented (x3) - ECG O2 Sat by Pulse Oximetry: 98 (RA) Pulse Ox Interpretation: Normal Medical Decision Making Medical Decision Making: Time: 14:40 Initial Impression: shortnessa of breath and asthma Plan: Albuterol 0.083% 2.5mg INH Prednisone 50mg PO Peak flow pre/post tx Reevaluation pt feels better, breathing improved. stable for dc and outpt follow up. pt states ran out of inhaler and prednisone, so will write RXs. Scribe Attestation: Documented by Shelly Scott acting as a scribe for Melania Crook MD. Scribe Attestation: All medical record entries made by the Scribe were at my direction and personally dictated by me. I have reviewed the chart and agree that the record accurately reflects my personal performance of the history, physical exam, medical decision making, and the department course for this patient. I have also personally directed, reviewed, and agree with the discharge instructions and disposition. Disposition - Clinical Impression Clinical Impression: Asthma - Patient ED Disposition Is Patient to be Admitted: No Counseled Patient/Family Regarding: Studies Performed, Diagnosis, Need For Followup - Disposition Disposition: Routine/Home Disposition Time: 16:00 Condition: IMPROVED Additional Instructions: follow up with your primary doctor in 1-2 days return to the ED with any worsening or concerning symptoms Prescriptions: Albuterol HFA [Ventolin HFA 90 mcg/actuation (8 g)] 1 - 2 puff IH Q4H PRN #1 bottle PRN Reason: Wheezing predniSONE [Prednisone] 40 mg PO DAILY #8 tab Forms: [employer] (Croatian)
[2017-11-16] MEDS ORDERED: Albuterol-Ipratrop 3 mg / 0.5 (3 ml) UD INH STA (16:50)
== END 2017-11-16 17:25 | disposition home or self-care (01) ==
LOC: H.ER 13:32
DX: J45.909 Unspecified asthma, uncomplicated (principal); E11.9 Type 2 diabetes mellitus without complications; E78.00 Pure hypercholesterolemia, unspecified; I10 Essential (primary) hypertension; Z79.84 Long term (current) use of oral hypoglycemic drugs

== ENCOUNTER 2017-12-12 19:49 | Emergency (ER) | payer OTHER ==
[2017-12-12 19:55] VITALS: BMI 22.1
[2017-12-12 19:56] VITALS: RESP 18; TEMP 97.8
[2017-12-12] MEDS ORDERED: Albuterol-Ipratrop 3 mg / 0.5 (3 ml) UD INH STA (20:19)
[2017-12-12] MEDS ORDERED: Lactated Ringer's 500 ML IV SCH (20:30)
--- NOTE | 2017-12-12 20:34 | ED PDOC ---
HPI: SOB/CHF/COPD History Per: Patient History/Exam Limitations: no limitations Current Symptoms Are (Timing): Still Present <Niharika De Los Santos - Last Filed: 12/13/17 06:51> <Tato Bird - Last Filed: 12/14/17 09:55> Time Seen by Provider: 12/12/17 19:58 Chief Complaint (Nursing): Respiratory Distress Additional Complaint(s): 51 y/o male with PMHx of Asthma, DM type 2 presents to ED brought via EMS complaining of SOB and wheezing since today afternoon at 2 pm, he used his rescue spray approximately 15 times, but it did not work. Patient also is complaining of stuffy nose since yesterday, coughing since today associated with small white phlegm production. Denies fevers, chills, chest pain, N/V, diaphoresis. Also patient is complaining of diffuse abdoinal pain since today, associated with 7 episodes of watery non bloody diarrheas. (Niharika De Los Santos) Supervising Attending Note - Supervising Attending Note The Documented history was done by the: Physician Supervisor Tubing, Attending Physician The documented physical exam was done by the: Physician Supervisor Tubing, Attending Physician The documented procedures were done by the: Physician Supervisor Tubing, Attending Physician - Attestation: I have personally seen and examined this patient.: Yes I have fully participated in the care of the patient.: Yes I have reviewed all pertinent clinical information, including history, physical exam and plan: Yes <Tato Bird - Last Filed: 12/14/17 09:55> Past Medical History - Medical History PMH: Anxiety, Asthma, Bronchitis, COPD, Depression, Diabetes, Fractures (Left foot fracture), Gastritis, HTN, Hypercholesterolemia Denies: Hepatitis, HIV, Chronic Kidney Disease, Seizures, Sexually Transmitted Disease - Family History Family History: States: Unknown Family Hx, Diabetes - Immunization History Hx Tetanus Toxoid Vaccination: No Hx Influenza Vaccination: No Hx Pneumococcal Vaccination: Yes <Niharika De Los Santos - Last Filed: 12/13/17 06:51> Reviewed: Historical Data, Nursing Documentation, Vital Signs <Tato Bird - Last Filed: 12/14/17 09:55> Vital Signs: Last Vital Signs Temp 97.8 F 12/12/17 19:51 Pulse 76 12/13/17 00:12 Resp 18 12/12/17 22:55 BP 145/92 H 12/12/17 22:55 Pulse Ox 98 12/13/17 06:54 - Home Medications Home Medications: Ambulatory Orders Medication Instructions Recorded Albuterol HFA [Ventolin HFA 90 2 puff IH Q4H #1 puff 07/02/17 mcg/actuation (8 g)] PARoxetine [Paxil] 20 mg PO QAM #30 tab 07/15/17 QUEtiapine [Seroquel] 50 mg PO HS #30 tab 07/15/17 traZODone [Desyrel] 50 mg PO HS #30 tab 07/15/17 Albuterol HFA [Ventolin HFA 90 1 puff INH RQ4 PRN inhaler 10/20/17 mcg/actuation (8 g)] Benztropine [Cogentin] 1 mg PO BID #60 tab 10/20/17 Gabapentin [Neurontin] 300 mg PO BID #60 cap 10/20/17 PARoxetine [Paxil] 40 mg PO DAILY #30 tab 10/20/17 metFORMIN [glucOPHAGE] 500 mg PO BID tab 10/20/17 metFORMIN [glucOPHAGE] 850 mg PO BID #60 tab 10/20/17 risperiDONE [RisperDAL Tab] 1 mg PO HS #30 tab 10/20/17 traZODone [Desyrel] 100 mg PO HS PRN #30 tab 10/20/17 Albuterol HFA [Ventolin HFA 90 1 puff IH QID PRN #1 bottle 10/31/17 mcg/actuation (8 g)] metFORMIN [glucOPHAGE] 850 mg PO BID #15 tab 10/31/17 predniSONE [Prednisone] 60 mg PO DAILY #12 tab 10/31/17 Albuterol HFA [Ventolin HFA 90 1 puff IH ASDIR #1 unit 11/01/17 mcg/actuation (8 g)] Prednisone 50 mg PO DAILY #5 tablet 11/01/17 Albuterol HFA [Ventolin HFA 90 1 - 2 puff IH Q4H PRN #1 bottle 11/16/17 mcg/actuation (8 g)] predniSONE [Prednisone] 40 mg PO DAILY #8 tab 11/16/17 Albuterol Sulfate [Proair Hfa] 0.09 mg IH Q6 PRN #1 inh 12/13/17 Dicyclomine [Dicyclomine HCl] 10 mg PO TID PRN #15 cap 12/13/17 predniSONE [predniSONE Tab] 20 mg PO DAILY #5 tab 12/13/17 - Allergies Allergies/Adverse Reactions: Allergies Allergy/AdvReac Type Severity Reaction Status Date / Time FISH Allergy ANAPHYLAXIS Verified 11/01/17 17:21 Fish Containing Products Allergy ANAPHYLAXIS Verified 11/01/17 17:21 shellfish derived Allergy ANAPHYLAXIS Verified 11/01/17 17:21 seafood Allergy Severe ANAPHYLAXIS Uncoded 10/31/17 13:10 Curb-65 Severity Score - CURB-65 Severity Score Confusion: No Bun >19mg/dl (>7mmol/L): No Respiratory Rate greater than/equal to 30: No Systolic BP <90 or Diastolic BP less than/equal 60mmHg: No Age >64: No Curb-65 Score: 0 Percentage 30-day mortality: 0.6% <Niharika De Los Santos - Last Filed: 12/13/17 06:51> Wells Criteria for PE - Wells Criteria for Pulmonary Embolism Clinical Signs and Symptoms of DVT: No P.E is #1 Diagnosis, or Equally Likely: No Heart Rate >100: No Immobilization at least 3 days;Surgery previous 4 weeks: No Previous, objectively diagnosed PE or DVT: No Hemoptysis: No Malignancy w/treatment within 6 months, or palliative: No Total Score: 0 <Niharika De Los Santos - Last Filed: 12/13/17 06:51> Review of Systems ROS Statement: Except As Marked, All Systems Reviewed And Found Negative (as per HPI) <Niharika De Los Santos - Last Filed: 12/13/17 06:51> ROS Statement: Except As Marked, All Systems Reviewed And Found Negative <Tato Bird - Last Filed: 12/14/17 09:55> Physical Exam - Reviewed Nursing Documentation Reviewed: Yes Vital Signs Reviewed: Yes - Physical Exam Appears: Positive for: Non-toxic, No Acute Distress Skin: Positive for: Normal Color, Warm, Dry ENT: Positive for: Normal ENT Inspection Neck: Positive for: Supple Cardiovascular/Chest: Positive for: Regular Rate, Rhythm Respiratory: Positive for: Wheezing. Negative for: Decreased Breath Sounds, Accessory Muscle Use, Crackles, Rales, Rhonchi, Stridor, Respiratory Distress Gastrointestinal/Abdominal: Positive for: Soft, Tenderness (diffuse tenderness to palpation, no rebound tenderness noted). Negative for: Mass, Distended, Guarding, Rebound Back: Negative for: L CVA Tenderness, R CVA Tenderness Neurologic/Psych: Positive for: Alert, Oriented <Niharika De Los Santos - Last Filed: 12/13/17 06:51> - Laboratory Results Result Diagrams: 12/12/17 21:20 12/12/17 21:20 - ECG O2 Sat by Pulse Oximetry: 98 <Niharika De Los Santos - Last Filed: 12/13/17 06:51> - Laboratory Results Result Diagrams: 12/12/17 21:20 12/12/17 21:20 - ECG ECG: Positive for: Interpreted By Me, Viewed By Me ECG Rhythm: Positive for: Normal QRS, Normal ST Segment, Sinus Rhythm. Negative for: ST/T Changes Rate: 76 - Progress Re-evaluation Time: 00:06 Condition: Re-examined, Improved <Tato Bird - Last Filed: 12/14/17 09:55> Medical Decision Making <Niharika De Los Santos - Last Filed: 12/13/17 06:51> <Tato Bird - Last Filed: 12/14/17 09:55> Medical Decision Making: Short of Breath -with wheezing -Asthma exacerbation vs Poor control Asthma -duoneb neb once -s/p duoneb once by EMS -EKG -re-evaluate after duoneb Abdominal pain and diarrheas -acute -IV fluids -check CBC/CMP/lipase -alcohol levels -UA -Toradol 15 mg IV once -Bentyl 20 mg PO once Re-evaluation -no wheezing at physical exam, and patient reports feeling better after second duoneb -reports abdominal pain has improved significantly, and denies any new episode of diarrheas -stable to be discharge home and recommended outpatient f/u with PMD in 1 week -patient agrees with plan (Niharika De Los Santos) Disposition <Niharika De Los Santos - Last Filed: 12/13/17 06:51> - Patient ED Disposition Is Patient to be Admitted: No Doctor Will See Patient In The: Office Counseled Patient/Family Regarding: Studies Performed, Diagnosis - Disposition Disposition: Routine/Home Disposition Time: 00:08 <Tato Bird - Last Filed: 12/14/17 09:55> - Clinical Impression Clinical Impression: Asthma, Diarrhea, Abdominal pain - Disposition Referrals: [facility] [Outside] Condition: IMPROVED Additional Instructions: Take your medications as instructed. Follow up with your PCP in 2-3 days. Return for worsening. Prescriptions: Albuterol Sulfate [Proair Hfa] 0.09 mg IH Q6 PRN #1 inh PRN Reason: Shortness Of Breath Dicyclomine [Dicyclomine HCl] 10 mg PO TID PRN #15 cap PRN Reason: Diarrhea predniSONE [predniSONE Tab] 20 mg PO DAILY #5 tab Instructions: Diarrhea in Adolescents and Adults, Asthma in Adults
[2017-12-12] MEDS ORDERED: Albuterol-Ipratrop 3 mg / 0.5 (3 ml) UD ONE (20:53)
[2017-12-12 21:26] LABS: BASO # 0.1 K/uL (0.0-0.2); BASO % 0.7 % (0.0-2.0); EOS # 0.3 K/uL (0.0-0.7); EOS % 3.6 % (0.0-4.0); HEMOGLOBIN 17.3 g/dL (12.0-18.0); LYMPH # 0.8 K/uL (1.0-4.3); LYMPH % 10.7 % (20.0-40.0); MEAN CELL VOLUME 90.4 fl (80.0-94.0); MEAN CORPUSCULAR HEMOGLOBIN 30.9 pg (27.0-31.0); MEAN CORPUSCULAR HGB CONC 34.2 g/dL (33.0-37.0); MONO # 0.4 K/uL (0.0-0.8); MONO % 5.3 % (0.0-10.0); NEUT # 5.6 K/uL (1.8-7.0); NEUT % 79.7 % (50.0-75.0); NRBC % 0.1 % (0.0-0.0); RBC 5.61 Mil/uL (4.40-5.90); WHITE BLOOD COUNT 7.1 K/uL (4.8-10.8)
[2017-12-12 21:40] LABS: ALB/GLOB RATIO 1.2 (1.0-2.1); ALBUMIN 4.6 g/dL (3.5-5.0); ALT/SGPT 55 U/L (21-72); AST/SGOT 49 U/L (17-59); BLOOD UREA NITROGEN 18 mg/dl (9-20); CALCIUM 10.1 mg/dL (8.4-10.2); GFR AFRICAN-AMERICAN > 60; GFR NON-AFRICAN AMERICAN > 60; LIPASE 132 U/L (23-300)
[2017-12-12 21:51] LABS: URINE AMORPHOUS SEDIMENT RARE /ul (<OCC); URINE BACTERIA RARE (<OCC); URINE BILIRUBIN NEGATIVE (NEGATIVE); URINE BLOOD NEGATIVE (NEGATIVE); URINE CLARITY CLOUDY (Clear); URINE COLOR YELLOW (YELLOW); URINE GLUCOSE (UA) NEG (Normal); URINE LEUKOCYTE ESTERASE NEG Leu/uL (Negative); URINE PROTEIN 30 mg/dL (NEGATIVE); URINE UROBILINOGEN 0.2-1.0 mg/dL (0.2-1.0)
[2017-12-12 22:03] LABS: BARBITURATES, UR NEGATIVE (NEGATIVE); BENZODIAZEPINES, UR NEGATIVE (NEGATIVE); OPIATES, UR NEGATIVE (NEGATIVE); PHENCYCLIDINE, UR NEGATIVE (NEGATIVE)
[2017-12-12 23:55] VITALS: BP 145/92
[2017-12-13 00:08] VITALS: PULSE 76
[2017-12-13 06:54] VITALS: O2SAT 98
--- NOTE | 2017-12-13 15:19 | CARD ---
APPROVED REPORT EKG Measurement Heart [id number] <Conclusion> Normal sinus rhythm Normal ECG
== END 2017-12-13 00:25 | disposition home or self-care (01) ==
LOC: H.ER 19:49
DX: J45.909 Unspecified asthma, uncomplicated (principal); R10.9 Unspecified abdominal pain; E11.9 Type 2 diabetes mellitus without complications; E78.00 Pure hypercholesterolemia, unspecified; F32.9 Major depressive disorder, single episode, unspecified; F41.9 Anxiety disorder, unspecified; I10 Essential (primary) hypertension; J44.9 Chronic obstructive pulmonary disease, unspecified; Z79.84 Long term (current) use of oral hypoglycemic drugs
CPT/HCPCS: 80053; 80320; 80324; 80345; 80346; 80349; 80353; 80358; 80361; 81003; 83690; 83992; 85025; 93005; 94150; 94640; 96361; 96374; 99285; J1885; J7120

== ENCOUNTER 2018-05-18 19:12 | Emergency (ER) | payer OTHER ==
[2018-05-18 19:12] VITALS: BMI 22.1
[2018-05-18] MEDS ORDERED: Albuterol-Ipratrop 3 mg / 0.5 (3 ml) UD INH PRN (20:05)
[2018-05-18] MEDS ORDERED: Albuterol-Ipratrop 3 mg / 0.5 (3 ml) UD ONE ×3 (20:12→20:49)
[2018-05-18] MEDS ORDERED: Albuterol-Ipratrop 3 mg / 0.5 (3 ml) UD INH STA ×2 (20:20→20:21)
--- NOTE | 2018-05-18 20:21 | ED PDOC ---
HPI: SOB/CHF/COPD Time Seen by Provider: 05/18/18 20:00 Chief Complaint (Nursing): Shortness Of Breath Chief Complaint (Provider): Asthma Exacerbation History Per: Patient History/Exam Limitations: no limitations Onset/Duration Of Symptoms: Days (x2) Current Symptoms Are (Timing): Still Present Additional Complaint(s): 52 year old male with a past medical history of asthma and known for frequent visits to the ED for asthma exacerbation, presents for 2 days of worsening symptoms of wheezing and chest tightness. Denies recent cough or fever. Last hospitalization was 1 year ago with no previous intubations. No known allergies. Patient is unsure of the trigger. Patient is actively smoking but states he is trying to quit. Patient has no other complaints. PMD: Rickey Rodriguez Past Medical History Reviewed: Historical Data, Nursing Documentation, Vital Signs Vital Signs: Last Vital Signs Temp 98.3 F 05/18/18 19:19 Pulse 92 H 05/18/18 19:19 Resp 18 05/18/18 20:15 BP 146/82 05/18/18 19:19 Pulse Ox 96 05/18/18 20:15 - Medical History PMH: Anxiety, Asthma, Bronchitis, COPD, Depression, Diabetes, Fractures (Left foot fracture), Gastritis, HTN, Hypercholesterolemia Denies: Hepatitis, HIV, Chronic Kidney Disease, Seizures, Sexually Transmitted Disease - Surgical History Surgical History: No Surg Hx - Family History Family History: States: Unknown Family Hx, Diabetes - Social History Current smoker - smoking cessation education provided: Yes (Light Smoker < 10 Cigarettes Daily) Alcohol: Occasional Drugs: Cannabis - Immunization History Hx Tetanus Toxoid Vaccination: No Hx Influenza Vaccination: No Hx Pneumococcal Vaccination: Yes - Home Medications Home Medications: Ambulatory Orders Medication Instructions Recorded RX: Albuterol HFA [Ventolin HFA 90 2 puff IH Q4H #1 puff 07/02/17 mcg/actuation (8 g)] RX: PARoxetine [Paxil] 20 mg PO QAM #30 tab 07/15/17 RX: QUEtiapine [Seroquel] 50 mg PO HS #30 tab 07/15/17 RX: traZODone [Desyrel] 50 mg PO HS #30 tab 07/15/17 RX: Albuterol HFA [Ventolin HFA 90 1 puff INH RQ4 PRN inhaler 10/20/17 mcg/actuation (8 g)] RX: Benztropine [Cogentin] 1 mg PO BID #60 tab 10/20/17 RX: Gabapentin [Neurontin] 300 mg PO BID #60 cap 10/20/17 RX: PARoxetine [Paxil] 40 mg PO DAILY #30 tab 10/20/17 RX: metFORMIN [glucOPHAGE] 500 mg PO BID tab 10/20/17 RX: metFORMIN [glucOPHAGE] 850 mg PO BID #60 tab 10/20/17 RX: risperiDONE [RisperDAL Tab] 1 mg PO HS #30 tab 10/20/17 RX: traZODone [Desyrel] 100 mg PO HS PRN #30 tab 10/20/17 RX: Albuterol HFA [Ventolin HFA 90 1 puff IH QID PRN #1 bottle 10/31/17 mcg/actuation (8 g)] RX: metFORMIN [glucOPHAGE] 850 mg PO BID #15 tab 10/31/17 predniSONE [Prednisone] 60 mg PO DAILY #12 tab 10/31/17 Albuterol HFA [Ventolin HFA 90 1 puff IH ASDIR #1 unit 11/01/17 mcg/actuation (8 g)] RX: Prednisone 50 mg PO DAILY #5 tablet 11/01/17 RX: Albuterol HFA [Ventolin HFA 90 1 - 2 puff IH Q4H PRN #1 bottle 11/16/17 mcg/actuation (8 g)] predniSONE [Prednisone] 40 mg PO DAILY #8 tab 11/16/17 Dicyclomine [Dicyclomine HCl] 10 mg PO TID PRN #15 cap 12/13/17 RX: Albuterol Sulfate [Proair Hfa] 0.09 mg IH Q6 PRN #1 inh 12/13/17 RX: predniSONE [predniSONE Tab] 20 mg PO DAILY #5 tab 12/13/17 Methylprednisolone [Medrol Dose 4 mg PO DAILY #21 mg 04/16/18 Pack (21 tabs)] RX: Albuterol HFA [Ventolin HFA 90 2 puff IH [id number] PRN #1 puff 04/16/18 mcg/actuation (8 g)] RX: Albuterol HFA [Ventolin HFA 90 2 puff IH [id number] #1 pump 05/18/18 mcg/actuation (8 g)] RX: Prednisone [Deltasone] 40 mg PO DAILY #8 tablet 05/18/18 - Allergies Allergies/Adverse Reactions: Allergies Allergy/AdvReac Type Severity Reaction Status Date / Time FISH Allergy ANAPHYLAXIS Verified 05/18/18 19:16 Fish Containing Products Allergy ANAPHYLAXIS Verified 05/18/18 19:16 shellfish derived Allergy ANAPHYLAXIS Verified 05/18/18 19:16 seafood Allergy Severe ANAPHYLAXIS Uncoded 05/18/18 19:16 Review of Systems ROS Statement: Except As Marked, All Systems Reviewed And Found Negative Constitutional: Negative for: Fever Cardiovascular: Positive for: Other (Chest tightness) Respiratory: Positive for: Wheezing. Negative for: Cough Physical Exam - Reviewed Nursing Documentation Reviewed: Yes Vital Signs Reviewed: Yes - Physical Exam Appears: Positive for: Non-toxic, No Acute Distress (smells of urine, alcohol and cigarettes; disheveled) Head Exam: Positive for: ATRAUMATIC, NORMOCEPHALIC Skin: Positive for: Normal Color, Warm, Dry Eye Exam: Positive for: Normal appearance Neck: Positive for: Normal, Painless ROM Cardiovascular/Chest: Positive for: Regular Rate, Rhythm. Negative for: Murmur Respiratory: Positive for: Wheezing (diffuse bilaterally). Negative for: Respiratory Distress Extremity: Positive for: Normal ROM Neurologic/Psych: Positive for: Alert, Oriented. Negative for: Motor/Sensory Deficits - ECG O2 Sat by Pulse Oximetry: 96 (RA) Pulse Ox Interpretation: Normal Medical Decision Making Medical Decision Making: Initial Impression: Acute asthma exacerbation Initial Plan: --DuoNebs: Albuterol 3mL INH --Prednisone 60 mg PO --Peak flow --Reassess patient Scribe Attestation: Documented by Jadon Park acting as a scribe for Niharika Herrera MD. Provider Scribe Attestation: All medical record entries made by the Scribe were at my direction and personally dictated by me. I have reviewed the chart and agree that the record accurately reflects my personal performance of the history, physical exam, medical decision making, and the department course for this patient. I have also personally directed, reviewed, and agree with the discharge instructions and disposition. Pt with improved symptoms. Wheeze resolved. Pt ambulatory and conversational without becoming SOB. PT given Rx for albuterol and Prednisone. Return parameters discussed. Disposition - Clinical Impression Clinical Impression: Asthma - Disposition Disposition: Routine/Home Disposition Time: 21:40 Condition: IMPROVED Additional Instructions: Take albuterol for wheezing. Take Prednisone each day for 4 days starting tomorrow. Return to the emergency department if symptoms worsen or if new symptoms develop. Prescriptions: RX: Albuterol HFA [Ventolin HFA 90 mcg/actuation (8 g)] 2 puff IH [id number] #1 pump RX: Prednisone [Deltasone] 40 mg PO DAILY #8 tablet Instructions: Asthma in Adults Forms: [facility] (Congolese) Print Language: COLOMBIAN
[2018-05-18 21:53] VITALS: BP 138/83; PULSE 85; RESP 17; TEMP 98.2
[2018-05-18 21:56] VITALS: O2SAT 96
== END 2018-05-18 21:53 | disposition home or self-care (01) ==
LOC: H.ER 19:12
DX: J45.901 Unspecified asthma with (acute) exacerbation (principal); F17.210 Nicotine dependence, cigarettes, uncomplicated; Z86.59 Personal history of other mental and behavioral disorders; I10 Essential (primary) hypertension; E11.9 Type 2 diabetes mellitus without complications; Z79.84 Long term (current) use of oral hypoglycemic drugs; Z79.899 Other long term (current) drug therapy; J44.9 Chronic obstructive pulmonary disease, unspecified

== ENCOUNTER 2018-06-23 13:31 | Emergency (ER) | payer OTHER ==
[2018-06-23 13:42] VITALS: PULSE 70; O2SAT 99
[2018-06-23 13:43] VITALS: BMI 35.7
--- NOTE | 2018-06-23 14:33 | ED PDOC ---
HPI: General Adult Time Seen by Provider: 06/23/18 14:09 Chief Complaint (Nursing): Med Refill Chief Complaint (Provider): Med Refill History Per: Patient History/Exam Limitations: no limitations Additional Complaint(s): 52 year old male presents to the ED requesting a med refill. Patient reports he ran out of his albuterol inhaler and is unable to follow up with his PMD for another six weeks. Denies asthma symptoms currently, as well as SOB/cough, fever/chills, chest pain, palpitations. PMD: Rickey Baldwin Past Medical History Reviewed: Historical Data, Nursing Documentation, Vital Signs Vital Signs: Last Vital Signs Temp 97.4 F L 06/23/18 13:41 Pulse 70 06/23/18 13:41 Resp BP 186/72 H 06/23/18 13:41 Pulse Ox 99 06/23/18 13:41 - Medical History PMH: Anxiety, Asthma, Bronchitis, COPD, Depression, Diabetes, Fractures (Left foot fracture), Gastritis, HTN, Hypercholesterolemia - Surgical History Surgical History: No Surg Hx - Family History Family History: States: Diabetes - Home Medications Home Medications: Ambulatory Orders Medication Instructions Recorded RX: Albuterol HFA [Ventolin HFA 90 2 puff IH Q4H #1 puff 07/02/17 mcg/actuation (8 g)] RX: PARoxetine [Paxil] 20 mg PO QAM #30 tab 07/15/17 RX: QUEtiapine [Seroquel] 50 mg PO HS #30 tab 07/15/17 RX: traZODone [Desyrel] 50 mg PO HS #30 tab 07/15/17 RX: Albuterol HFA [Ventolin HFA 90 1 puff INH RQ4 PRN inhaler 10/20/17 mcg/actuation (8 g)] RX: Benztropine [Cogentin] 1 mg PO BID #60 tab 10/20/17 RX: Gabapentin [Neurontin] 300 mg PO BID #60 cap 10/20/17 RX: PARoxetine [Paxil] 40 mg PO DAILY #30 tab 10/20/17 RX: metFORMIN [glucOPHAGE] 500 mg PO BID tab 10/20/17 RX: metFORMIN [glucOPHAGE] 850 mg PO BID #60 tab 10/20/17 RX: risperiDONE [RisperDAL Tab] 1 mg PO HS #30 tab 10/20/17 RX: traZODone [Desyrel] 100 mg PO HS PRN #30 tab 10/20/17 RX: Albuterol HFA [Ventolin HFA 90 1 puff IH QID PRN #1 bottle 10/31/17 mcg/actuation (8 g)] RX: metFORMIN [glucOPHAGE] 850 mg PO BID #15 tab 10/31/17 predniSONE [Prednisone] 60 mg PO DAILY #12 tab 10/31/17 Albuterol HFA [Ventolin HFA 90 1 puff IH ASDIR #1 unit 11/01/17 mcg/actuation (8 g)] RX: Prednisone 50 mg PO DAILY #5 tablet 11/01/17 RX: Albuterol HFA [Ventolin HFA 90 1 - 2 puff IH Q4H PRN #1 bottle 11/16/17 mcg/actuation (8 g)] predniSONE [Prednisone] 40 mg PO DAILY #8 tab 11/16/17 Dicyclomine [Dicyclomine HCl] 10 mg PO TID PRN #15 cap 12/13/17 RX: Albuterol Sulfate [Proair Hfa] 0.09 mg IH Q6 PRN #1 inh 12/13/17 RX: predniSONE [predniSONE Tab] 20 mg PO DAILY #5 tab 12/13/17 Methylprednisolone [Medrol Dose 4 mg PO DAILY #21 mg 04/16/18 Pack (21 tabs)] RX: Albuterol HFA [Ventolin HFA 90 2 puff IH [id number] PRN #1 puff 04/16/18 mcg/actuation (8 g)] RX: Albuterol HFA [Ventolin HFA 90 2 puff IH [id number] #1 pump 05/18/18 mcg/actuation (8 g)] RX: Prednisone [Deltasone] 40 mg PO DAILY #8 tablet 05/18/18 Albuterol Sulfate [Ventolin Hfa] 1 puff IH Q4 PRN #1 unit 06/23/18 - Allergies Allergies/Adverse Reactions: Allergies Allergy/AdvReac Type Severity Reaction Status Date / Time FISH Allergy ANAPHYLAXIS Verified 05/18/18 19:16 Fish Containing Products Allergy ANAPHYLAXIS Verified 05/18/18 19:16 shellfish derived Allergy ANAPHYLAXIS Verified 10/09/18 19:16 seafood Allergy Severe ANAPHYLAXIS Uncoded 05/18/18 19:16 Review of Systems ROS Statement: Except As Marked, All Systems Reviewed And Found Negative Constitutional: Negative for: Fever, Chills Cardiovascular: Negative for: Chest Pain, Palpitations Respiratory: Negative for: Cough, Shortness of Breath, Wheezing Physical Exam - Reviewed Nursing Documentation Reviewed: Yes Vital Signs Reviewed: Yes - Physical Exam Comments: GENERAL APPEARANCE: Patient is awake, alert, oriented x 3, in no acute distress. Speaking in full sentences SKIN: Warm, dry; (-) cyanosis. ENMT: Mucous membranes moist. Airway patent: (-) stridor. NECK: Supple, FROM CHEST AND RESPIRATORY: (-) wheezing (-) rales, (-) rhonchi; breath sounds equal bilaterally. Respirations even and nonlabored. HEART AND CARDIOVASCULAR: (-) irregularity ABDOMEN AND GI: Soft; (-) tenderness. EXTREMITIES: (-) deformity NEURO AND PSYCH: Mental status as above; (-) focal findings. Gait: steady. S peech: clear. (-) facial asymmetry - ECG O2 Sat by Pulse Oximetry: 99 (RA) Pulse Ox Interpretation: Normal Medical Decision Making Medical Decision Making: Initial Impression: Medication refill -Due to patient not having any complaints at this time with normal exam, patient proved with Rx for Ventolin and follow up with PMD as scheduled. No further treatment required in ED at this time. Repeat BP: 154/76 Patient advised to follow up elevated BP reading with PMD. DASH diet encouraged. Advised to take medication as prescribed. Return to the emergency room at any time for any new or worsening symptoms. Patient states he fully agrees with and understands discharge instructions. States that he agrees with the plan and disposition. Verbalized and repeated discharge instructions and plan. I have given the patient opportunity to ask any additional questions. Scribe Attestation: Documented by Sury Harris, acting as a scribe for Niharika Real PA-C. Provider Scribe Attestation: All medical record entries made by the Scribe were at my direction and personally dictated by me. I have reviewed the chart and agree that the record accurately reflects my personal performance of the history, physical exam, medical decision making, and the department course for this patient. I have also personally directed, reviewed, and agree with the discharge instructions and disposition. Disposition - Clinical Impression Clinical Impression: Encounter for medication refill, Elevated blood pressure reading - Patient ED Disposition Is Patient to be Admitted: No Counseled Patient/Family Regarding: Studies Performed, Diagnosis, Need For Followup, Rx Given - Disposition Referrals: Rickey Baldwin MD [Family Provider] - Disposition: Routine/Home Disposition Time: 14:40 Condition: STABLE Additional Instructions: The emergency medical care you received today was directed at your acute symptoms. If you were prescribed any medication, please fill it and take as directed. It may take several days for your symptoms to resolve. Return to the Emergency Department if your symptoms worsen, do not improve, or if you have any other problems. Please contact your doctor in 2 days for re-evaluation and follow up / or call one of the physicians/clinics you have been referred to that are listed on the Patient Visit Information form that is included in your discharge packet. Bring any paperwork you were given at discharge with you along with any medications you are taking to your follow up visit. Our treatment cannot replace ongoing medical care by a primary care provider (PCP) outside of the emergency department. Prescriptions: Albuterol Sulfate [Ventolin Hfa] 1 puff IH Q4 PRN #1 unit PRN Reason: asthma symptoms Instructions: High Blood Pressure in Adults, DASH Diet, Hypertension (ED) Forms: [facility] (Greek) Print Language: GREEK - POA Present On Arrival: None
[2018-06-23 14:52] VITALS: BP 154/76; RESP 18; TEMP 97.7
== END 2018-06-23 14:45 | disposition home or self-care (01) ==
LOC: H.ER 13:31
DX: Z76.0 Encounter for issue of repeat prescription (principal); I10 Essential (primary) hypertension

== ENCOUNTER 2018-07-25 02:41 | Emergency (ER) | payer OTHER ==
[2018-07-25 02:41] VITALS: BMI 35.7
[2018-07-25 03:06] VITALS: BP 144/76; PULSE 70; RESP 18; TEMP 97.7; O2SAT 97
[2018-07-25] MEDS ORDERED: Albuterol-Ipratrop 3 mg / 0.5 (3 ml) UD INH STA ×3 (03:24→04:39)
--- NOTE | 2018-07-25 04:14 | ED PDOC ---
HPI: SOB/CHF/COPD Time Seen by Provider: 07/25/18 03:22 Chief Complaint (Nursing): Respiratory Distress Chief Complaint (Provider): Wheezing History Per: Patient History/Exam Limitations: no limitations Onset/Duration Of Symptoms: Days (5x days) Current Symptoms Are (Timing): Still Present Initiating Event: Out Of Medications (running out) Current Respiratory Medications: Albuterol Severity: Moderate Associated Symptoms: Other (dry cough). denies: Fever Additional Complaint(s): 52 year old male with a past medical history of asthma and diabetes presents to the ED with complaints of wheezing that has been ongoing for 5x days. Patient reports having associated symptoms of a dry cough. Patient states that he has never been intubated. Patient states that he is running out of albuterol at home, and has not taken metformin in 3x months. Patient denies having fevers. PMD: No PMD. Past Medical History Reviewed: Historical Data, Nursing Documentation, Vital Signs Vital Signs: Last Vital Signs Temp 97.7 F 07/25/18 03:04 Pulse 70 07/25/18 03:04 Resp 18 07/25/18 03:04 BP 144/76 07/25/18 03:04 Pulse Ox 97 07/25/18 03:04 - Medical History PMH: Anxiety, Asthma, Bronchitis, COPD, Depression, Diabetes, Fractures (Left foot fracture), Gastritis, HTN, Hypercholesterolemia Denies: Hepatitis, HIV, Chronic Kidney Disease, Seizures, Sexually Transmitted Disease - Surgical History Surgical History: No Surg Hx - Family History Family History: States: Diabetes - Social History Alcohol: Occasional - Immunization History Hx Tetanus Toxoid Vaccination: No Hx Influenza Vaccination: No Hx Pneumococcal Vaccination: No - Home Medications Home Medications: Ambulatory Orders Medication Instructions Recorded RX: Albuterol HFA [Ventolin HFA 90 2 puff IH Q4H #1 puff 07/02/17 mcg/actuation (8 g)] RX: PARoxetine [Paxil] 20 mg PO QAM #30 tab 07/15/17 RX: QUEtiapine [Seroquel] 50 mg PO HS #30 tab 07/15/17 RX: traZODone [Desyrel] 50 mg PO HS #30 tab 07/15/17 RX: Albuterol HFA [Ventolin HFA 90 1 puff INH RQ4 PRN inhaler 10/20/17 mcg/actuation (8 g)] RX: Benztropine [Cogentin] 1 mg PO BID #60 tab 10/20/17 RX: Gabapentin [Neurontin] 300 mg PO BID #60 cap 10/20/17 RX: PARoxetine [Paxil] 40 mg PO DAILY #30 tab 10/20/17 RX: metFORMIN [glucOPHAGE] 500 mg PO BID tab 10/20/17 RX: metFORMIN [glucOPHAGE] 850 mg PO BID #60 tab 10/20/17 RX: risperiDONE [RisperDAL Tab] 1 mg PO HS #30 tab 10/20/17 RX: traZODone [Desyrel] 100 mg PO HS PRN #30 tab 10/20/17 RX: Albuterol HFA [Ventolin HFA 90 1 puff IH QID PRN #1 bottle 10/31/17 mcg/actuation (8 g)] RX: metFORMIN [glucOPHAGE] 850 mg PO BID #15 tab 10/31/17 predniSONE [Prednisone] 60 mg PO DAILY #12 tab 10/31/17 Albuterol HFA [Ventolin HFA 90 1 puff IH ASDIR #1 unit 11/01/17 mcg/actuation (8 g)] RX: Prednisone 50 mg PO DAILY #5 tablet 11/01/17 RX: Albuterol HFA [Ventolin HFA 90 1 - 2 puff IH Q4H PRN #1 bottle 11/16/17 mcg/actuation (8 g)] predniSONE [Prednisone] 40 mg PO DAILY #8 tab 11/16/17 Dicyclomine [Dicyclomine HCl] 10 mg PO TID PRN #15 cap 12/13/17 RX: Albuterol Sulfate [Proair Hfa] 0.09 mg IH Q6 PRN #1 inh 12/13/17 RX: predniSONE [predniSONE Tab] 20 mg PO DAILY #5 tab 12/13/17 Methylprednisolone [Medrol Dose 4 mg PO DAILY #21 mg 04/16/18 Pack (21 tabs)] RX: Albuterol HFA [Ventolin HFA 90 2 puff IH [id number] PRN #1 puff 04/16/18 mcg/actuation (8 g)] RX: Albuterol HFA [Ventolin HFA 90 2 puff IH [id number] #1 pump 05/18/18 mcg/actuation (8 g)] RX: Prednisone [Deltasone] 40 mg PO DAILY #8 tablet 05/18/18 Albuterol Sulfate [Ventolin Hfa] 1 puff IH Q4 PRN #1 unit 06/23/18 Albuterol Sulfate [Ventolin Hfa] 1 puff IH Q4 PRN #1 ml 07/25/18 RX: metFORMIN [glucOPHAGE] 500 mg PO BID #60 tab 07/25/18 RX: predniSONE [predniSONE Tab] 60 mg PO DAILY #9 tab 07/25/18 - Allergies Allergies/Adverse Reactions: Allergies Allergy/AdvReac Type Severity Reaction Status Date / Time FISH Allergy ANAPHYLAXIS Verified 05/18/18 19:16 Fish Containing Products Allergy ANAPHYLAXIS Verified 05/18/18 19:16 shellfish derived Allergy ANAPHYLAXIS Verified 05/18/18 19:16 seafood Allergy Severe ANAPHYLAXIS Uncoded 05/18/18 19:16 Review of Systems ROS Statement: Except As Marked, All Systems Reviewed And Found Negative Constitutional: Negative for: Fever Respiratory: Positive for: Cough (dry), Wheezing Physical Exam - Reviewed Nursing Documentation Reviewed: Yes Vital Signs Reviewed: Yes - Physical Exam Appears: Positive for: Well (resting comfortably listening to iphone), Non- toxic, No Acute Distress Head Exam: Positive for: ATRAUMATIC, NORMOCEPHALIC Skin: Positive for: Normal Color, Warm, Dry Cardiovascular/Chest: Positive for: Regular Rate, Rhythm Respiratory: Positive for: Wheezing (mild scattered wheezing on right lung field.). Negative for: Accessory Muscle Use, Respiratory Distress Neurologic/Psych: Positive for: Alert, Oriented (3x) - ECG O2 Sat by Pulse Oximetry: 97 (RA) Pulse Ox Interpretation: Normal Nebulizer Treatments/Peak Flow - Duonebs Number of Bronchodilator Doses given?: 2 - Pre/Post Peak Flow Pre Treatment Peak Flow: 2 Post treatment Peak Flow: 2 - Steroid Treatment Steroid: Oral Medical Decision Making Medical Decision Makin:22 Initial impression: 52 year old male with a mild asthma exacerbation. No distress noted. Initial plan: * glucose * accucheck * duoneb 3 ml UD 3 ml INH * duoneb 3 ml UD 3 ml INH * prednisone tab 60 mg PO * peak flow pre post treatment * reevaluation 6:00 --Patient feeling much better, no longer wheezing --Advised to followup with PMD --Very well appearing upon discharge Scribe Attestation: Documented byNiharika Taveras, acting as a scribe for Richard Smith MD. Provider Scribe Attestation: All medical record entries made by the Scribe were at my direction and personally dictated by me. I have reviewed the chart and agree that the record accurately reflects my personal performance of the history, physical exam, medical decision making, and the department course for this patient. I have also personally directed, reviewed, and agree with the discharge instructions and disposition. Disposition - Clinical Impression Clinical Impression: COPD (chronic obstructive pulmonary disease) - Disposition Referrals: Purn[facility] Morrison [Outside] Disposition: Routine/Home Disposition Time: 06:00 Condition: IMPROVED Prescriptions: Albuterol Sulfate [Ventolin Hfa] 1 puff IH Q4 PRN #1 ml PRN Reason: Wheezing RX: metFORMIN [glucOPHAGE] 500 mg PO BID #60 tab RX: predniSONE [predniSONE Tab] 60 mg PO DAILY #9 tab Instructions: Exacerbation of COPD, Inhalers Forms: [employer] (Ugandan)
[2018-07-25] MEDS ORDERED: Albuterol-Ipratrop 3 mg / 0.5 (3 ml) UD ONE (04:41)
== END 2018-07-25 06:05 | disposition home or self-care (01) ==
LOC: H.ER 02:41
DX: J44.9 Chronic obstructive pulmonary disease, unspecified (principal); E11.9 Type 2 diabetes mellitus without complications; E78.00 Pure hypercholesterolemia, unspecified; I10 Essential (primary) hypertension; Z79.84 Long term (current) use of oral hypoglycemic drugs

== ENCOUNTER 2018-07-27 05:54 | Emergency (ER) | payer OTHER ==
[2018-07-27 05:54] VITALS: BMI 35.7
[2018-07-27 06:24] VITALS: TEMP 97.9
--- NOTE | 2018-07-27 06:27 | ED PDOC ---
HPI: SOB/CHF/COPD Time Seen by Provider: 07/27/18 06:06 Chief Complaint (Nursing): Shortness Of Breath History Per: Patient History/Exam Limitations: no limitations Current Symptoms Are (Timing): Still Present Additional Complaint(s): Hx of asthma (no intubations), DM, HTN, HLD presenting with shortness of breath, wheezing since yesterday. Patient was in ER recently and treated for asthma, was given prescription for albutero nebulizer and predniseon but patient never filled either prescription. States he was going to fill amanda prescriptions today but felt too short of breath today. States he feels chest tightness as well. Past Medical History Reviewed: Historical Data, Nursing Documentation, Vital Signs Vital Signs: Last Vital Signs Temp 97.9 F 07/27/18 06:22 Pulse 82 07/27/18 06:22 Resp 18 07/27/18 06:22 BP 128/79 07/27/18 06:22 Pulse Ox 97 07/27/18 06:22 - Medical History PMH: Anxiety, Asthma, Bronchitis, COPD, Depression, Diabetes, Fractures (Left foot fracture), Gastritis, HTN, Hypercholesterolemia Denies: Hepatitis, HIV, Chronic Kidney Disease, Seizures, Sexually Transmitted Disease - Family History Family History: States: Unknown Family Hx, Diabetes - Immunization History Hx Tetanus Toxoid Vaccination: No Hx Influenza Vaccination: No Hx Pneumococcal Vaccination: No - Home Medications Home Medications: Ambulatory Orders Medication Instructions Recorded Albuterol HFA [Ventolin HFA 90 2 puff IH Q4H #1 puff 07/02/17 mcg/actuation (8 g)] PARoxetine [Paxil] 20 mg PO QAM #30 tab 07/15/17 QUEtiapine [Seroquel] 50 mg PO HS #30 tab 07/15/17 traZODone [Desyrel] 50 mg PO HS #30 tab 07/15/17 Albuterol HFA [Ventolin HFA 90 1 puff INH RQ4 PRN inhaler 10/20/17 mcg/actuation (8 g)] Benztropine [Cogentin] 1 mg PO BID #60 tab 10/20/17 Gabapentin [Neurontin] 300 mg PO BID #60 cap 10/20/17 PARoxetine [Paxil] 40 mg PO DAILY #30 tab 10/20/17 metFORMIN [glucOPHAGE] 500 mg PO BID tab 10/20/17 metFORMIN [glucOPHAGE] 850 mg PO BID #60 tab 10/20/17 risperiDONE [RisperDAL Tab] 1 mg PO HS #30 tab 10/20/17 traZODone [Desyrel] 100 mg PO HS PRN #30 tab 10/20/17 Albuterol HFA [Ventolin HFA 90 1 puff IH QID PRN #1 bottle 10/31/17 mcg/actuation (8 g)] metFORMIN [glucOPHAGE] 850 mg PO BID #15 tab 10/31/17 predniSONE [Prednisone] 60 mg PO DAILY #12 tab 10/31/17 Albuterol HFA [Ventolin HFA 90 1 puff IH ASDIR #1 unit 11/01/17 mcg/actuation (8 g)] Prednisone 50 mg PO DAILY #5 tablet 11/01/17 Albuterol HFA [Ventolin HFA 90 1 - 2 puff IH Q4H PRN #1 bottle 11/16/17 mcg/actuation (8 g)] predniSONE [Prednisone] 40 mg PO DAILY #8 tab 11/16/17 Albuterol Sulfate [Proair Hfa] 0.09 mg IH Q6 PRN #1 inh 12/13/17 Dicyclomine [Dicyclomine HCl] 10 mg PO TID PRN #15 cap 12/13/17 predniSONE [predniSONE Tab] 20 mg PO DAILY #5 tab 12/13/17 Albuterol HFA [Ventolin HFA 90 2 puff IH [id number] PRN #1 puff 04/16/18 mcg/actuation (8 g)] Methylprednisolone [Medrol Dose 4 mg PO DAILY #21 mg 04/16/18 Pack (21 tabs)] Albuterol HFA [Ventolin HFA 90 2 puff IH [id number] #1 pump 05/18/18 mcg/actuation (8 g)] Prednisone [Deltasone] 40 mg PO DAILY #8 tablet 05/18/18 Albuterol Sulfate [Ventolin Hfa] 1 puff IH Q4 PRN #1 unit 06/23/18 Albuterol Sulfate [Ventolin Hfa] 1 puff IH Q4 PRN #1 ml 07/25/18 metFORMIN [glucOPHAGE] 500 mg PO BID #60 tab 07/25/18 predniSONE [predniSONE Tab] 60 mg PO DAILY #9 tab 07/25/18 - Allergies Allergies/Adverse Reactions: Allergies Allergy/AdvReac Type Severity Reaction Status Date / Time FISH Allergy ANAPHYLAXIS Verified 05/18/18 19:16 Fish Containing Products Allergy ANAPHYLAXIS Verified 05/18/18 19:16 shellfish derived Allergy ANAPHYLAXIS Verified 05/18/18 19:16 seafood Allergy Severe ANAPHYLAXIS Uncoded 05/18/18 19:16 Review of Systems ROS Statement: Except As Marked, All Systems Reviewed And Found Negative Cardiovascular: Positive for: Chest Pain Respiratory: Positive for: Shortness of Breath, Wheezing Physical Exam - Reviewed Nursing Documentation Reviewed: Yes Vital Signs Reviewed: Yes - Physical Exam Appears: Positive for: Well, Non-toxic, No Acute Distress Head Exam: Positive for: ATRAUMATIC, NORMAL INSPECTION, NORMOCEPHALIC Skin: Positive for: Normal Color, Warm, DRY Eye Exam: Positive for: EOMI, Normal appearance, PERRL ENT: Positive for: Normal ENT Inspection Neck: Positive for: Normal, Painless ROM Cardiovascular/Chest: Positive for: Regular Rate, Rhythm Respiratory: Positive for: Wheezing. Negative for: Rales, Rhonchi, Stridor, Respiratory Distress Gastrointestinal/Abdominal: Positive for: Normal Exam, Soft Back: Positive for: Normal Inspection Extremity: Positive for: Normal ROM Neurologic/Psych: Positive for: Alert, Oriented - ECG ECG Rhythm: Positive for: Normal QRS, Normal ST Segment, Sinus Rhythm Rate: 81 O2 Sat by Pulse Oximetry: 97 Pulse Ox Interpretation: Normal Medical Decision Making Medical Decision MakinAM Patient presenting with asthma exacerbation in setting of medication non- compliance --Patient speaking full sentences, no respiratory distress noted, normal vitals --Symptoms are indicative of mild - moderate asthma exacerbation --Will treat with nebs and prednisone --Will re-eval 0700 --Will endorse to Dr. German post-nebs Disposition - Clinical Impression Clinical Impression: Asthma - Patient ED Disposition Is Patient to be Admitted: Transfer of Care - Disposition Disposition: Transfer of Care Disposition Time: 07:00 Condition: STABLE Forms: [facility] (Polish) Patient Signed Over To: Emily German Handoff Comments: pending re-eval post-nebs
[2018-07-27] MEDS ORDERED: Albuterol-Ipratrop 3 mg / 0.5 (3 ml) UD INH STA ×4 (06:45→08:57)
--- NOTE | 2018-07-27 08:15 | ED PDOC ---
- ECG O2 Sat by Pulse Oximetry: 97 Pulse Ox Interpretation: Normal - Progress Re-evaluation Time: 11:01 Condition: Improved (Pt feels much better, agrees with discharge home. ) Medical Decision Making Medical Decision Makin:00 Patient endorsed to this provider from Dr. Smith. Pending reevaluation. Disposition - Clinical Impression Clinical Impression: Asthma - POA Present On Arrival: None - Disposition Disposition: Routine/Home Disposition Time: 11:02 Condition: IMPROVED Additional Instructions: FOLLOW-UP WITH PMD WITHIN 2 DAYS FOR REEVALUATION. FILL PRESCRIPTIONS GIVEN TO YOU 2 DAYS AGO. Instructions: Asthma in Adults Forms: [facility] (Estonian)
[2018-07-27 08:20] VITALS: RESP 18
[2018-07-27 11:03] VITALS: O2SAT 97
[2018-07-27 11:16] VITALS: BP 132/83; PULSE 70
--- NOTE | 2018-07-29 11:42 | CARD ---
APPROVED REPORT Date of service: 07/27/2018 EKG Measurement Heart [id number] <Conclusion> Normal sinus rhythm Normal ECG
== END 2018-07-27 11:15 | disposition home or self-care (01) ==
LOC: H.ER 05:54
DX: J45.909 Unspecified asthma, uncomplicated (principal); E11.9 Type 2 diabetes mellitus without complications; J44.9 Chronic obstructive pulmonary disease, unspecified

== ENCOUNTER 2018-10-10 09:21 | Emergency (ER) | payer MEDICAID, OTHER ==
[2018-10-10 09:21] VITALS: BMI 35.7
[2018-10-10] MEDS ORDERED: Albuterol-Ipratrop 3 mg / 0.5 (3 ml) UD INH STA ×4 (09:42→11:56)
--- NOTE | 2018-10-10 09:45 | ED PDOC ---
HPI: General Adult Time Seen by Provider: 10/10/18 09:43 Chief Complaint (Nursing): Shortness Of Breath Chief Complaint (Provider): SOB History Per: Patient (52 Y/O MALE H/O COCAINE ABUSE/DM/ASTHMA HERE WITH SOB NOTED TODAY. 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 DID NOT HAVE INHALER TO USE.) Past Medical History Reviewed: Historical Data, Nursing Documentation, Vital Signs Vital Signs: Last Vital Signs Temp 97.2 F L 10/10/18 09:23 Pulse 70 10/10/18 09:23 Resp 18 10/10/18 09:23 BP 138/73 10/10/18 09:23 Pulse Ox 99 10/10/18 09:23 - Medical History PMH: Anxiety, Asthma, Bronchitis, COPD, Depression, Diabetes, Fractures (Left foot fracture), Gastritis, HTN, Hypercholesterolemia Denies: Hepatitis, HIV, Chronic Kidney Disease, Seizures, Sexually Transmitted Disease - Family History Family History: States: Diabetes - Immunization History Hx Tetanus Toxoid Vaccination: No Hx Influenza Vaccination: No Hx Pneumococcal Vaccination: No - Home Medications Home Medications: Ambulatory Orders Medication Instructions Recorded metFORMIN [glucOPHAGE] 500 mg PO BID tab 10/20/17 Albuterol Sulfate [Ventolin Hfa] 1 puff IH Q4 PRN #1 unit 06/23/18 Gabapentin [Neurontin] 300 mg PO BID #60 cap 08/11/18 QUEtiapine [SEROquel] 50 mg PO HS #30 tab 08/11/18 buPROPion [Wellbutrin] 100 mg PO DAILY #30 tab 08/11/18 Albuterol HFA [Ventolin HFA 90 2 puff IH [id number] PRN #1 in 10/10/18 mcg/actuation (8 g)] predniSONE [predniSONE Tab] 3 tab PO DAILY #12 tab 10/10/18 - Allergies Allergies/Adverse Reactions: Allergies Allergy/AdvReac Type Severity Reaction Status Date / Time FISH Allergy ANAPHYLAXIS Verified 08/06/18 10:50 Fish Containing Products Allergy ANAPHYLAXIS Verified 08/06/18 10:50 shellfish derived Allergy ANAPHYLAXIS Verified 08/06/18 10:50 seafood Allergy Severe ANAPHYLAXIS Uncoded 08/06/18 10:50 Review of Systems ROS Statement: Except As Marked, All Systems Reviewed And Found Negative Respiratory: Positive for: Shortness of Breath Physical Exam - Reviewed Nursing Documentation Reviewed: Yes Vital Signs Reviewed: Yes - Physical Exam Appears: Positive for: Well, Non-toxic, No Acute Distress Head Exam: Positive for: ATRAUMATIC, NORMAL INSPECTION, NORMOCEPHALIC Skin: Positive for: Normal Color, Warm, DRY Eye Exam: Positive for: EOMI, Normal appearance, PERRL ENT: Positive for: Normal ENT Inspection Neck: Positive for: Normal, Painless ROM Cardiovascular/Chest: Positive for: Regular Rate, Rhythm Respiratory: Positive for: Decreased Breath Sounds Gastrointestinal/Abdominal: Positive for: Normal Exam, Soft Back: Positive for: Normal Inspection Extremity: Positive for: Normal ROM Neurologic/Psych: Positive for: Alert, Oriented - Laboratory Results Result Diagrams: 10/10/18 10:10 10/10/18 10:10 - ECG ECG Rhythm: Positive for: Sinus Rhythm (nsr 62bpm; no ectopy no acute changes) O2 Sat by Pulse Oximetry: 99 - Progress ED Course And Treament: cxr: nad duoneb x 3 solumedrol 125 mg iv x 1 dose with improvement of symptoms Disposition - Clinical Impression Clinical Impression: Asthma exacerbation - Patient ED Disposition Is Patient to be Admitted: No - Disposition [facility]errals: [facility] [Outside] Disposition: Routine/Home Disposition Time: 12:34 Condition: FAIR Prescriptions: Albuterol HFA [Ventolin HFA 90 mcg/actuation (8 g)] 2 puff IH [id number] PRN #1 in PRN Reason: Shortness Of Breath predniSONE [predniSONE Tab] 3 tab PO DAILY #12 tab Instructions: Asthma, Adult (DC)
[2018-10-10] MEDS ORDERED: Albuterol-Ipratrop 3 mg / 0.5 (3 ml) UD ONE ×2 (09:54→12:11)
[2018-10-10 10:25] LABS: BASO % 0.7 % (0.0-2.0); EOS # 0.2 K/uL (0.0-0.7); EOS % 6.4 % (0.0-4.0); HEMOGLOBIN 14.7 g/dL (12.0-18.0); LYMPH # 0.9 K/uL (1.0-4.3); LYMPH % 26.6 % (20.0-40.0); MEAN CELL VOLUME 90.7 fl (80.0-94.0); MEAN CORPUSCULAR HEMOGLOBIN 29.8 pg (27.0-31.0); MEAN CORPUSCULAR HGB CONC 32.8 g/dL (33.0-37.0); MEAN PLATELET VOLUME 9.1 fl (7.2-11.7); MONO # 0.5 K/uL (0.0-0.8); NEUT # 1.8 K/uL (1.8-7.0); NEUT % 52.3 % (50.0-75.0); NRBC % 0.1 % (0.0-0.0); RBC 4.93 Mil/uL (4.40-5.90); RED CELL DISTRIBUTION WIDTH 13.8 % (11.5-14.5); WHITE BLOOD COUNT 3.4 K/uL (4.8-10.8)
[2018-10-10 10:51] LABS: B-TYPE NATRIURETIC PEPTIDE 40.6 pg/ml (0-900)
[2018-10-10 11:11] LABS: ALB/GLOB RATIO 1.3 (1.0-2.1); ALBUMIN 3.9 g/dL (3.5-5.0); ALT/SGPT 38 U/L (21-72); AST/SGOT 27 U/L (17-59); BLOOD UREA NITROGEN 13 mg/dl (9-20); CALCIUM 9.5 mg/dL (8.4-10.2); GFR NON-AFRICAN AMERICAN > 60
--- NOTE | 2018-10-10 11:48 | RAD ---
Date of service: 10/10/2018 HISTORY: sob COMPARISON: Chest radiograph dated 11/06/2017. FINDINGS: LUNGS: No active pulmonary disease. PLEURA: No significant pleural effusion identified, no pneumothorax apparent. CARDIOVASCULAR: No aortic atherosclerotic calcification present. Normal cardiac size. No pulmonary vascular congestion. OSSEOUS STRUCTURES: No significant abnormalities. VISUALIZED UPPER ABDOMEN: Normal. OTHER FINDINGS: None. IMPRESSION: No active disease.
[2018-10-10 12:27] VITALS: BP 126/72; PULSE 63; RESP 19; TEMP 97.6
[2018-10-10 12:36] VITALS: O2SAT 99
--- NOTE | 2018-10-11 07:56 | CARD ---
APPROVED REPORT Date of service: 10/10/2018 EKG Measurement Heart [id number] <Conclusion> Normal sinus rhythm Normal Electrocardiogram
== END 2018-10-10 13:02 | disposition home or self-care (01) ==
LOC: H.ER 09:21
DX: J45.901 Unspecified asthma with (acute) exacerbation (principal); I10 Essential (primary) hypertension; J44.9 Chronic obstructive pulmonary disease, unspecified; E11.9 Type 2 diabetes mellitus without complications; Z79.84 Long term (current) use of oral hypoglycemic drugs; Z86.59 Personal history of other mental and behavioral disorders; Z79.899 Other long term (current) drug therapy
CPT/HCPCS: 71045; 80053; 80320; 82948; 83735; 83880; 84484; 85025; 93005; 96374; 99284; J2930

== ENCOUNTER 2019-01-04 11:34 | Emergency (ER) | payer OTHER ==
[2019-01-04 12:30] VITALS: BMI 34.9
[2019-01-04 12:32] VITALS: TEMP 98.1
[2019-01-04] MEDS ORDERED: Albuterol-Ipratrop 3 mg / 0.5 (3 ml) UD INH STA (13:05)
--- NOTE | 2019-01-04 13:24 | RAD ---
Date of service: 01/04/2019 HISTORY: chest pain/ r/o infiltrate COMPARISON: 10/10/2018 TECHNIQUE: Chest PA and lateral views FINDINGS: LUNGS: No active pulmonary disease. PLEURA: No significant pleural effusion identified. No pneumothorax apparent. CARDIOVASCULAR: No aortic atherosclerotic calcification present. Heart size probably top-normal. No pulmonary vascular congestion. OSSEOUS STRUCTURES: No significant abnormalities. VISUALIZED UPPER ABDOMEN: Normal. OTHER FINDINGS: None. IMPRESSION: No active disease. No interval pathology noted.
[2019-01-04] MEDS ORDERED: Albuterol-Ipratrop 3 mg / 0.5 (3 ml) UD ONE (13:28)
--- NOTE | 2019-01-04 13:36 | ED PDOC ---
HPI: Asthma Time Seen by Provider: 01/04/19 13:03 Chief Complaint (Nursing): Respiratory Distress Chief Complaint (Provider): Shortness of Breath History Per: Patient History/Exam Limitations: no limitations Onset/Duration Of Symptoms: Days (x4-5) Current Symptoms Are (Timing): Still Present Additional Complaint(s): Patient is a 53 y/o male with an extensive PMHx including asthma who presents to the ED for evaluation of wheeze, cough, and shortness of breath for the past four to five days. Patient has been using albuterol pump with minimal relief. Patient denies hemoptysis, fever, and syncope. Of note, patient does smoke. PCP: None Past Medical History Reviewed: Historical Data, Nursing Documentation, Vital Signs Vital Signs: Last Vital Signs Temp 98.1 F 01/04/19 12:30 Pulse 53 L 01/04/19 12:30 Resp 17 01/04/19 12:30 BP 147/82 01/04/19 12:30 Pulse Ox 97 01/04/19 12:30 - Medical History PMH: Anxiety, Asthma, Bronchitis, COPD, Depression, Diabetes, Fractures (Left foot fracture), Gastritis, HTN, Hypercholesterolemia Denies: Hepatitis, HIV, Chronic Kidney Disease, Seizures, Sexually Transmitted Disease - Surgical History Surgical History: No Surg Hx - Family History Family History: States: Diabetes - Social History Current smoker - smoking cessation education provided: Yes Alcohol: > 2 Drinks/Day (alcohol abuse) - Immunization History Hx Tetanus Toxoid Vaccination: No Hx Influenza Vaccination: No Hx Pneumococcal Vaccination: No - Home Medications Home Medications: Ambulatory Orders Medication Instructions Recorded metFORMIN [glucOPHAGE] 500 mg PO BID tab 10/20/17 Albuterol Sulfate [Ventolin Hfa] 1 puff IH Q4 PRN #1 unit 06/23/18 Gabapentin [Neurontin] 300 mg PO BID #60 cap 08/11/18 QUEtiapine [SEROquel] 50 mg PO HS #30 tab 08/11/18 buPROPion [Wellbutrin] 100 mg PO DAILY #30 tab 08/11/18 Albuterol HFA [Ventolin HFA 90 2 puff IH [id number] PRN #1 in 10/10/18 mcg/actuation (8 g)] predniSONE [predniSONE Tab] 3 tab PO DAILY #12 tab 10/10/18 Albuterol HFA [Ventolin HFA 90 1 - 2 puff IH Q4 PRN #1 inhaler 01/04/19 mcg/actuation (8 g)] Prednisone 50 mg PO DAILY #4 tab 01/04/19 - Allergies Allergies/Adverse Reactions: Allergies Allergy/AdvReac Type Severity Reaction Status Date / Time FISH Allergy ANAPHYLAXIS Verified 08/06/18 10:50 Fish Containing Products Allergy ANAPHYLAXIS Verified 08/06/18 10:50 shellfish derived Allergy ANAPHYLAXIS Verified 08/06/18 10:50 seafood Allergy Severe ANAPHYLAXIS Uncoded 08/06/18 10:50 Review of Systems ROS Statement: Except As Marked, All Systems Reviewed And Found Negative Constitutional: Negative for: Fever Respiratory: Positive for: Cough, Shortness of Breath, Wheezing. Negative for: Hemoptysis Physical Exam - Reviewed Nursing Documentation Reviewed: Yes Vital Signs Reviewed: Yes - Physical Exam Appears: Positive for: No Acute Distress Head Exam: Positive for: ATRAUMATIC, NORMAL INSPECTION, NORMOCEPHALIC Skin: Positive for: Normal Color, Warm, DRY Eye Exam: Positive for: EOMI, Normal appearance, PERRL Neck: Positive for: Normal, Painless ROM, Supple Cardiovascular/Chest: Positive for: Regular Rate, Rhythm. Negative for: Murmur Respiratory: Positive for: Decreased Breath Sounds, Wheezing. Negative for: Respiratory Distress Gastrointestinal/Abdominal: Positive for: Normal Exam, Soft. Negative for: Tenderness Back: Positive for: Normal Inspection. Negative for: L CVA Tenderness, R CVA Tenderness Extremity: Positive for: Normal ROM. Negative for: Pedal Edema, Deformity Neurological/Psych: Positive for: Awake, Alert, Oriented (x3) - Laboratory Results Result Diagrams: 01/04/19 14:15 - ECG O2 Sat by Pulse Oximetry: 97 (RA) Pulse Ox Interpretation: Normal - Radiology X-Ray: Read By Radiologist X-Ray Interpretation: No Acute Disease - Progress Re-evaluation Time: 14:00 Condition: Improved Medical Decision Making Medical Decision Making: Time: 1305 Impression: Moderate Asthma Exacerbation Plan: EKG BNP Troponin I CBC CXR Duoneb 3 ml INH SOLU-Medrol 125 mg IVP Peak Flow Pre/Post TX .Pre/Post Treatment Time: 1320 FINDINGS: LUNGS: No active pulmonary disease. PLEURA: No significant pleural effusion identified. No pneumothorax apparent. CARDIOVASCULAR: No aortic atherosclerotic calcification present. Heart size probably top-normal. No pulmonary vascular congestion. OSSEOUS STRUCTURES: No significant abnormalities. VISUALIZED UPPER ABDOMEN: Normal. OTHER FINDINGS: None. IMPRESSION: No active disease. No interval pathology noted. Scribe Attestation: Documented by Chandler Woodall, acting as a scribe Skinny Tang DO. Provider Scribe Attestation: All medical record entries made by the Scribe were at my direction and personally dictated by me. I have reviewed the chart and agree that the record accurately reflects my personal performance of the history, physical exam, medical decision making, and the department course for this patient. I have also personally directed, reviewed, and agree with the discharge instructions and disposition. Disposition - Clinical Impression Clinical Impression: Asthma exacerbation - Patient ED Disposition Is Patient to be Admitted: No Counseled Patient/Family Regarding: Studies Performed, Diagnosis, Need For Followup - Disposition Disposition: Routine/Home Disposition Time: 14:30 Condition: Additional Instructions: Followup w PMD and recommend smoking cessation. Return to ER for any difficulty breathing. Prescriptions: Albuterol HFA [Ventolin HFA 90 mcg/actuation (8 g)] 1 - 2 puff IH Q4 PRN #1 inhaler PRN Reason: Shortness Of Breath Prednisone 50 mg PO DAILY #4 tab Instructions: Asthma, Adult (DC), Avoiding Asthma Triggers Forms: [employer] (Mongolian)
[2019-01-04 14:31] LABS: EOS # 0.2 K/uL (0.0-0.7); EOS % 6.3 % (0.0-4.0); HEMOGLOBIN 15.7 g/dL (12.0-18.0); LYMPH # 1.1 K/uL (1.0-4.3); LYMPH % 35.4 % (20.0-40.0); MEAN CELL VOLUME 89.8 fl (80.0-94.0); MEAN CORPUSCULAR HEMOGLOBIN 30.1 pg (27.0-31.0); MEAN CORPUSCULAR HGB CONC 33.6 g/dL (33.0-37.0); MEAN PLATELET VOLUME 8.9 fl (7.2-11.7); MONO # 0.4 K/uL (0.0-0.8); MONO % 12.2 % (0.0-10.0); NEUT # 1.4 K/uL (1.8-7.0); NEUT % 45.1 % (50.0-75.0); NRBC % 0.1 % (0.0-0.0); RBC 5.23 Mil/uL (4.40-5.90); RED CELL DISTRIBUTION WIDTH 13.4 % (11.5-14.5); WHITE BLOOD COUNT 3.1 K/uL (4.8-10.8)
[2019-01-04 15:01] LABS: B-TYPE NATRIURETIC PEPTIDE 32.9 pg/ml (0-900)
[2019-01-04 16:00] VITALS: BP 148/83; PULSE 66; RESP 18
--- NOTE | 2019-01-04 17:28 | CARD ---
APPROVED REPORT Date of service: 01/04/2019 EKG Measurement Heart [id number] <Conclusion> Sinus bradycardia Otherwise normal ECG
[2019-01-06 16:34] VITALS: O2SAT 97
== END 2019-01-04 15:57 | disposition home or self-care (01) ==
LOC: H.ER 11:34
DX: J45.901 Unspecified asthma with (acute) exacerbation (principal); E11.9 Type 2 diabetes mellitus without complications; E78.00 Pure hypercholesterolemia, unspecified; I10 Essential (primary) hypertension; Z79.84 Long term (current) use of oral hypoglycemic drugs
CPT/HCPCS: 71046; 82948; 83880; 84484; 85025; 93005; 96374; 99285; J2930